=== PATIENT | female | born 1950 | race Caucasian/White ===

== ENCOUNTER 2020-06-11 17:07 | Outpatient (REF) | payer MEDICARE, SELFPAY | END 2020-06-11 17:08 | disposition home or self-care (01) | LOC: HO.LAB 17:07 | PROVIDERS: PCP Internal Medicine; Visit Provider Internal Medicine | DX: Z20.828 Contact with and (suspected) exposure to other viral communicable diseases (principal) | CPT/HCPCS: 87635 ==

== ENCOUNTER → 2020-07-21 10:38 | Outpatient (BNVA) | payer MEDICARE, SELFPAY | PROVIDERS: Visit Provider Orthopaedic Surgery | DX: M17.11 Unilateral primary osteoarthritis, right knee (principal) | CPT/HCPCS: 20610; 99212; J1040 ==

== ENCOUNTER 2020-08-07 11:47 | Outpatient (REF) | payer MEDICARE, SELFPAY ==
[2020-08-07 13:39] LABS: Cholesterol 213 mg/dL; HDL Cholesterol 40 mg/dL; LDL Cholesterol Calculated 151 mg/dl; Triglycerides 112 mg/dL
== END 2020-08-07 11:48 | disposition home or self-care (01) ==
LOC: HO.LAB 11:47
PROVIDERS: PCP Internal Medicine; Visit Provider Internal Medicine
DX: I10 Essential (primary) hypertension (principal)
CPT/HCPCS: 80061

== ENCOUNTER 2020-08-18 10:41 | Outpatient (REF) | payer MEDICARE, SELFPAY ==
[2020-08-18 11:57] LABS: MANUAL DIFF FLAG NO
[2020-08-18 12:01] LABS: Basophils Percent Auto 0.7 % (0-2); Eosinophils Absolute Auto 0.2 X10*3/uL (0.0-0.4); Eosinophils Percent Auto 3.9 % (0-4); Hemoglobin 13.9 g/dl (12.0-16.0); Imm Gran Abs Auto 0.03 X10*3/uL (0.00-0.03); Imm Gran Pct Auto 0.7 % (0.0-0.4); Lymphocytes Absolute Auto 1.4 X10*3/uL (1.2-4.9); Lymphocytes Percent Auto 31.1 % (20-40); Mean Corpuscular HGB Conc 33.9 g/dl (31.0-35.0); Mean Corpuscular Hemoglobin 33.5 pg (27.0-33.0); Mean Corpuscular Volume 98.8 fL (80-98); Monocytes Absolute Auto 0.3 X10*3/uL (0.1-1.2); Monocytes Percent Auto 7.4 % (2-11); Neutrophils Absolute Auto 2.6 X10*3/uL (2.0-8.3); Neutrophils Percent Auto 56.2 % (45-73); Platelet Count 173 X10*3/uL (160-400); Red Blood Count 4.15 X10*6/uL (4.20-5.50); White Blood Count 4.6 X10*3/uL (4.8-10.8)
[2020-08-18 12:15] LABS: Cholesterol 198 mg/dL; HDL Cholesterol 37 mg/dL; LDL Cholesterol Calculated 130 mg/dl; Triglycerides 157 mg/dL
[2020-08-18 12:20] LABS: Alanine Aminotransferase 39 U/L (0-31); Alkaline Phosphatase 77 U/L (39-117); Aspartate Amino Transferase 33 U/L (5-31); Bilirubin Direct 0.2 mg/dL (0.0-0.5); Bilirubin Total 0.5 mg/dL (0.0-1.0); Iron 90 mcg/dL (30-160); Percent Iron Saturation 23 % (15-50); Total Iron Binding Capacity 383 mcg/dL (228-428); Unsaturated Iron Binding 293 ug/dL
[2020-08-18 12:30] LABS: Ferritin 391 ng/mL (10-250)
== END 2020-08-18 10:42 | disposition home or self-care (01) ==
LOC: HO.LAB 10:41
PROVIDERS: PCP Internal Medicine; Visit Provider Internal Medicine
DX: K76.0 Fatty (change of) liver, not elsewhere classified (principal); E83.19 Other disorders of iron metabolism; R74.8 Abnormal levels of other serum enzymes
CPT/HCPCS: 36415; 80061; 80076; 82728; 83540; 85025

== ENCOUNTER 2020-09-28 09:48 | Outpatient (REF) | payer MEDICARE, SELFPAY | END 2020-09-28 09:49 | disposition home or self-care (01) | LOC: HO.LAB 09:48 | PROVIDERS: Visit Provider Internal Medicine | DX: Z20.822 Contact with and (suspected) exposure to COVID-19 (principal) | CPT/HCPCS: 36415; C9803; U0003; U0005 ==

== ENCOUNTER 2020-12-28 07:58 | Outpatient (REF) | payer MEDICARE, SELFPAY ==
--- NOTE | ~2020-12-28 | US_ITS ---
EXAMINATION: US ABDOMEN COMPLETE CLINICAL INFORMATION: Elevated LFTs. COMPARISON: Ultrasound abdomen 01/07/2020 and 01/02/2019. TECHNIQUE: Real-time imaging of the abdominal viscera. FINDINGS: PANCREAS: The body and the head of the pancreas is homogeneous in echotexture. The tail of the pancreas is obstructed by gas. ABDOMINAL AORTA: The proximal, mid, and distal segments are normal in caliber. INFERIOR VENA CAVA: Visualized portions are normal. LIVER: The liver has increased echogenicity. The liver is normal in size and lobulated contour. No focal hepatic lesion. There is no intrahepatic biliary duct dilatation seen. GALLBLADDER: There are 2 echogenic nonmobile lesions along the posterior gallbladder wall likely polyps measuring 1.0 cm and 0.5 cm. The gallbladder is physiologically distended without evidence of stones, sludge, wall thickening or pericholecystic fluid. COMMON BILE DUCT: Normal in caliber measuring 0.6 cm in diameter. RIGHT KIDNEY: There is normal cortical thickness with a small anechoic cyst upper pole measuring 5.1 x 3.2 x 4.4 cm. No hydronephrosis or renal calculi. The kidney measures 12.7 cm in maximum dimension. LEFT KIDNEY: Normal. No hydronephrosis. No renal calculi or focal parenchymal lesions. The kidney measures 12.0 cm in maximum dimension. SPLEEN: Normal. The spleen measures 11.4 cm in maximum dimension. FREE FLUID: None. US/US abdomen complete IMPRESSION: Lobulated liver contour with mild hepatic steatosis. No focal lesion seen. 2 gallbladder polyps. Anechoic cyst upper pole right kidney.
== END 2020-12-28 07:59 | disposition home or self-care (01) ==
LOC: HO.US 07:58
PROVIDERS: Visit Provider Internal Medicine
DX: E83.19 Other disorders of iron metabolism (principal); R79.89 Other specified abnormal findings of blood chemistry
CPT/HCPCS: 76700

== ENCOUNTER 2021-01-04 11:33 | Outpatient (REF) | payer MEDICARE, SELFPAY ==
[2021-01-04 12:33] LABS: MANUAL DIFF FLAG NO
[2021-01-04 12:41] LABS: Basophils Percent Auto 0.7 % (0-2); Eosinophils Absolute Auto 0.1 X10*3/uL (0.0-0.4); Eosinophils Percent Auto 2.8 % (0-4); Hematocrit 39.4 % (37-47); Hemoglobin 13.4 g/dl (12.0-16.0); Imm Gran Abs Auto 0.01 X10*3/uL (0.00-0.03); Imm Gran Pct Auto 0.2 % (0.0-0.4); Lymphocytes Absolute Auto 1.6 X10*3/uL (1.2-4.9); Lymphocytes Percent Auto 34.5 % (20-40); Mean Corpuscular Hemoglobin 33.1 pg (27.0-33.0); Mean Corpuscular Volume 97.3 fL (80-98); Mean Platelet Volume 10.9 fL (9.4-12.3); Monocytes Absolute Auto 0.3 X10*3/uL (0.1-1.2); Monocytes Percent Auto 5.9 % (2-11); Neutrophils Absolute Auto 2.6 X10*3/uL (2.0-8.3); Neutrophils Percent Auto 55.9 % (45-73); Platelet Count 154 X10*3/uL (160-400); Red Blood Count 4.05 X10*6/uL (4.20-5.50); Red Cell Distribution Width 12.7 % (11.0-16.0); White Blood Count 4.6 X10*3/uL (4.8-10.8)
[2021-01-04 13:25] LABS: Alanine Aminotransferase 43 U/L (0-31); Albumin Level 3.8 g/dL (3.5-5.0); Alkaline Phosphatase 87 U/L (39-117); Aspartate Amino Transferase 40 U/L (5-31); Bilirubin Direct 0.2 mg/dL (0.0-0.5); Bilirubin Total 0.8 mg/dL (0.0-1.0); Iron 112 mcg/dL (30-160); Percent Iron Saturation 29 % (15-50); Total Iron Binding Capacity 391 mcg/dL (228-428); Total Protein 6.9 g/dL (6.5-8.0); Unsaturated Iron Binding 279 ug/dL
[2021-01-04 13:35] LABS: Ferritin 282 ng/mL (10-250)
[2021-01-05 11:17] LABS: Alpha Fetoprotein 7.3 ng/mL
== END 2021-01-04 11:34 | disposition home or self-care (01) ==
LOC: HO.LAB 11:33
PROVIDERS: PCP Internal Medicine; Visit Provider Internal Medicine
DX: E83.19 Other disorders of iron metabolism (principal); R79.89 Other specified abnormal findings of blood chemistry
CPT/HCPCS: 36415; 80076; 82105; 82728; 83540; 85025

== ENCOUNTER 2021-01-05 09:57 | Outpatient (REF) | payer MEDICARE, SELFPAY ==
[2021-01-05 11:00] LABS: Cholesterol 201 mg/dL; HDL Cholesterol 32 mg/dL; LDL Cholesterol Calculated 138 mg/dl; Triglycerides 158 mg/dL
== END 2021-01-05 09:58 | disposition home or self-care (01) ==
LOC: HO.LAB 09:57
PROVIDERS: PCP Internal Medicine; Visit Provider Internal Medicine
DX: E11.9 Type 2 diabetes mellitus without complications (principal)
CPT/HCPCS: 36415; 80061

== ENCOUNTER 2021-07-26 11:09 | Outpatient (REF) | payer MEDICARE, SELFPAY ==
[2021-07-26 11:22] LABS: MANUAL DIFF FLAG NO
[2021-07-26 12:19] LABS: Basophils Percent Auto 0.5 % (0-2); Eosinophils Absolute Auto 0.2 X10*3/uL (0.0-0.4); Eosinophils Percent Auto 2.5 % (0-4); Hemoglobin 15.4 g/dl (12.0-16.0); Imm Gran Abs Auto 0.02 X10*3/uL (0.00-0.03); Imm Gran Pct Auto 0.3 % (0.0-0.4); Lymphocytes Percent Auto 32.6 % (20-40); Mean Corpuscular HGB Conc 33.5 g/dl (31.0-35.0); Mean Corpuscular Volume 98.7 fL (80.0-98.0); Mean Platelet Volume 10.9 fL (9.4-12.3); Monocytes Absolute Auto 0.5 X10*3/uL (0.1-1.2); Monocytes Percent Auto 8.9 % (2-11); Neutrophils Absolute Auto 3.4 x10*3/uL (2.0-8.3); Neutrophils Percent Auto 55.2 % (45-73); Platelet Count 184 X10*3/uL (160-400); Red Blood Count 4.66 X10*6/uL (4.20-5.50); White Blood Count 6.1 X10*3/uL (4.8-10.8)
[2021-07-26 12:45] LABS: Alanine Aminotransferase 46 U/L (0-31); Albumin Level 4.2 g/dL (3.5-5.0); Alkaline Phosphatase 83 U/L (39-117); Anion Gap 15 (12-20); Aspartate Amino Transferase 44 U/L (5-31); Bilirubin Total 0.8 mg/dL (0.0-1.0); Blood Urea Nitrogen 15 mg/dL (9-16); Calcium 10.4 mg/dL (8.4-10.2); Carbon Dioxide 24 mmol/L (22-29); Chloride 106 mmol/L (96-108); Cholesterol 223 mg/dL; Estimated Glomerular Filt Rate 51; Glucose Fasting 112 mg/dL (60-99); HDL Cholesterol 34 mg/dL; LDL Cholesterol Calculated 151 mg/dl; Potassium 4.6 mmol/L (3.3-5.1); Sodium 140 mmol/L (135-145); Total Protein 7.6 g/dL (6.5-8.0); Triglycerides 191 mg/dL
[2021-07-26 12:57] LABS: Thyroid Stimulating Hormone 1.53 uIU/mL (0.32-4.0)
== END 2021-07-26 11:10 | disposition home or self-care (01) ==
LOC: HO.LAB 11:09
PROVIDERS: Absent Provider Nurse Practitioner Family; PCP Internal Medicine; Visit Provider Internal Medicine
DX: Z00.00 Encounter for general adult medical examination without abnormal findings (principal); Z13.1 Encounter for screening for diabetes mellitus; E11.9 Type 2 diabetes mellitus without complications; E03.9 Hypothyroidism, unspecified
CPT/HCPCS: 36415; 80053; 80061; 84443; 85025

== ENCOUNTER 2021-08-17 09:53 | Outpatient (REF) | payer MEDICARE, SELFPAY ==
--- NOTE | ~2021-08-17 | US_ITS ---
EXAMINATION: US ABDOMEN COMPLETE CLINICAL INFORMATION: Abdominal pain. COMPARISON: None TECHNIQUE: Real-time imaging of the abdominal viscera. FINDINGS: PANCREAS: Normal. ABDOMINAL AORTA: The proximal, mid, and distal segments are normal in caliber. INFERIOR VENA CAVA: Visualized portions are normal. LIVER: The liver is normal in size. The liver contour is normal. There is diffuse increased liver parenchymal echogenicity, consistent with hepatic steatosis. No focal hepatic lesion. There is no intrahepatic biliary duct dilatation seen. GALLBLADDER: Normal. The gallbladder is physiologically distended without evidence of stones, sludge, polyps, wall thickening or pericholecystic fluid. COMMON BILE DUCT: Normal in caliber measuring 0.3 cm in diameter. RIGHT KIDNEY: There is a 4.5 cm upper pole simple cyst. No hydronephrosis. No renal calculi or focal parenchymal lesions. The kidney measures 12.4 cm in maximum dimension. LEFT KIDNEY: Normal. No hydronephrosis. No renal calculi or focal parenchymal lesions. The kidney measures 12.2 cm in maximum dimension. SPLEEN: Normal. The spleen measures 9.1 cm in maximum dimension. FREE FLUID: None. US/US abdomen complete IMPRESSION: There is hepatic steatosis. Right upper pole simple renal cyst. No further follow-up is required.
== END 2021-08-17 09:54 | disposition home or self-care (01) ==
LOC: HO.HMGCX 09:53
PROVIDERS: Visit Provider Internal Medicine
DX: R10.9 Unspecified abdominal pain (principal)
CPT/HCPCS: 76700

== ENCOUNTER 2021-10-08 09:34 | Outpatient (REF) | payer MEDICARE, SELFPAY ==
--- NOTE | ~2021-10-08 | XR_ITS ---
EXAMINATION: XR knee standing BI, XR knee LT 2V CLINICAL INFORMATION: Reason for Exam M25.569 - Pain in unspecified knee COMPARISON: 01/13/2018. TECHNIQUE: Weightbearing AP views of both knees and lateral and sunrise views of the left knee FINDINGS: Mild subchondral bone plate impaction fracture of the medial aspect of the medial femoral condyle on the right. Healed fracture of the proximal RIGHT fibular diaphysis, unchanged. Moderate RIGHT medial tibiofemoral compartment joint space narrowing. Small tricompartmental marginal osteophytes present bilaterally. Lateral view of the left knee demonstrate a small knee joint effusion. Vascular calcifications. Soft tissues otherwise unremarkable. XR/XR knee standing BI IMPRESSION: * Bilateral degenerative changes as described, worst within the medial tibiofemoral compartment on the right where there is also associated small impaction (insufficiency) fracture of the subchondral bone plate. * Small left knee joint effusion.
--- NOTE | ~2021-10-08 | XR_ITS ---
EXAMINATION: XR knee standing BI, XR knee LT 2V CLINICAL INFORMATION: Reason for Exam M25.569 - Pain in unspecified knee COMPARISON: 01/13/2018. TECHNIQUE: Weightbearing AP views of both knees and lateral and sunrise views of the left knee FINDINGS: Mild subchondral bone plate impaction fracture of the medial aspect of the medial femoral condyle on the right. Healed fracture of the proximal RIGHT fibular diaphysis, unchanged. Moderate RIGHT medial tibiofemoral compartment joint space narrowing. Small tricompartmental marginal osteophytes present bilaterally. Lateral view of the left knee demonstrate a small knee joint effusion. Vascular calcifications. Soft tissues otherwise unremarkable. XR/XR knee LT 2V IMPRESSION: * Bilateral degenerative changes as described, worst within the medial tibiofemoral compartment on the right where there is also associated small impaction (insufficiency) fracture of the subchondral bone plate. * Small left knee joint effusion.
== END 2021-10-08 09:35 | disposition home or self-care (01) ==
LOC: HO.HOSX 09:34
PROVIDERS: PCP Internal Medicine; Visit Provider Orthopaedic Surgery
DX: M17.12 Unilateral primary osteoarthritis, left knee (principal)
CPT/HCPCS: 20610; 73560; 73565; 99212; J1100

== ENCOUNTER 2021-10-28 10:30 | Outpatient (REF) | payer MEDICARE, SELFPAY ==
--- NOTE | ~2021-10-28 | MR_ITS ---
EXAMINATION: MR KNEE WITHOUT CONTRAST, LEFT CLINICAL INFORMATION: Left knee pain. Arthritis. Internal derangement. COMPARISON: Radiographs dated 10/08/2021. TECHNIQUE: MRI of the knee without contrast was performed using routine sequences on a high-field scanner. FINDINGS: MENISCI: Medial Meniscus: There is a horizontal tear of the posterior horn and body extending to the undersurface near the free-edge margin. Lateral Meniscus: There is a complex tear of the anterior horn and body with a dominant longitudinal/vertical anterior horn component extending to both the superior meniscal surface and meniscal undersurface with loss of meniscal tissue and free-edge fraying. A horizontal component of the tear is present at the meniscal body which is partially extruded laterally. LIGAMENTS: Cruciate: Intact Collateral: Intact EXTENSOR MECHANISM: Large patellar enthesopathic spurs are present at the quadriceps tendon insertion and patellar tendon origin, as well as the patellar tendon insertion on the tibial tuberosity.. No tendinosis. Quadriceps and patellar tendons are intact. ARTICULAR CARTILAGE/BONE: Patellofemoral Compartment: High-grade nonuniform articular cartilage loss is present at the lateral patellar facet and median ridge with underlying cortical irregularity and subchondral edema as well as moderate-size marginal osteophytes. There is similar high-grade nonuniform cartilage loss at the lateral trochlear facet with articular cortical remodeling. More [id number] nonuniform articular cartilage loss is present at the medial facets. Medial Compartment: Mild to moderate nonuniform chondral thinning at the medial femoral condyle with a small central osteophyte. More mild chondral thinning at the medial tibial plateau. Small marginal osteophytes. Lateral Compartment: Moderate-size marginal osteophytes. There is moderate nonuniform chondral thinning at the lateral femoral condyle weightbearing surface anteriorly and at the lateral tibial plateau with small full-thickness chondral fissures. JOINT FLUID AND BURSAE: Small joint effusion and Smith's cyst. There is moderate semimembranosus-tibial collateral ligament bursitis. MR/MR knee LT wo con IMPRESSION: 1. Complex lateral meniscal tear with a dominant longitudinal component at the macerated anterior horn and partial extrusion of the meniscal body. 2. Horizontal tear of the posterior horn and body of the medial meniscus. 3. 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 4. Mild to moderate lateral and mild medial compartment osteoarthritis. 5. Small joint effusion and Smith's cyst. 6. Moderate semimembranosus-tibial collateral ligament bursitis.
== END 2021-10-28 10:31 | disposition home or self-care (01) ==
LOC: HO.MRI 10:30
PROVIDERS: PCP Internal Medicine; Visit Provider Orthopaedic Surgery
DX: M23.92 Unspecified internal derangement of left knee (principal)
CPT/HCPCS: 73721

== ENCOUNTER → 2021-11-01 14:47 | Outpatient (BNVA) | payer MEDICARE, SELFPAY | PROVIDERS: PCP Internal Medicine; Visit Provider Orthopaedic Surgery | DX: M17.12 Unilateral primary osteoarthritis, left knee (principal); M23.301 Other meniscus derangements, unspecified lateral meniscus, left knee; M23.204 Derangement of unspecified medial meniscus due to old tear or injury, left knee | CPT/HCPCS: 99212 ==

== ENCOUNTER → 2021-12-14 11:54 | Outpatient (REF) | payer MEDICARE, SELFPAY ==
--- NOTE | 2021-12-14 12:01 | ECG_ITS ---
Test Reason : Z13.9 Blood Pressure : / mmHG Vent. Rate : 055 BPM Atrial Rate : 055 BPM P-R Int : 160 ms QRS Dur : 076 ms QT Int : 446 ms P-R-T Axes : 066 -20 047 degrees QTc Int : 426 ms Sinus bradycardia with marked sinus arrhythmia Otherwise normal ECG When compared with ECG of 16-MAY-2019 16:04, No significant change was found Referred By: Ciaran Carlos Electronically Signed By:FREDDIE DESIR MD
== END ==
LOC: HO.CARD 11:54
PROVIDERS: PCP Internal Medicine; Visit Provider Internal Medicine
DX: Z13.9 Encounter for screening, unspecified (principal); R00.1 Bradycardia, unspecified
CPT/HCPCS: 93005

== ENCOUNTER 2021-12-28 07:59 | Outpatient (REF) | payer MEDICARE, SELFPAY ==
--- NOTE | ~2021-12-28 | US_ITS ---
EXAMINATION: US COMPLETE ABDOMEN WITH LIVER ELASTOGRAPHY CLINICAL INFORMATION: Liver fibrosis. Elevated liver function tests. COMPARISON: Previous abdominal ultrasound most recent July 2021 and previous less than the exam November 2016 TECHNIQUE: Real-time imaging of the abdominal viscera. Noninvasive ultrasound liver fibrosis assessment is performed using Yasmany ElastPQ point quantification shear wave elastography (2D-SWE) with a C5-2 MHz transducer. Multiple elastography samples are obtained. FINDINGS: PANCREAS: The head and body the pancreas are normal. The tail is well visualized. ABDOMINAL AORTA: The proximal, middle, and distal aortic segments are normal in caliber. INFERIOR VENA CAVA: Visualized portions are normal. LIVER: Liver echotexture appears slightly increased and heterogeneous. The contour of the liver may be slightly irregular scalloped questionable for mild cirrhotic change. No focal lesion or biliary duct dilatation. The right lobe measures 19 cm in length. The left lobe measures 16 cm in length. Portal flow is normal/ Shear wave liver elastography median stiffness is 1 m/s (reference: normal median stiffness is 1.3 m/s or less). IQR/median stiffness to assess sampling precision is 0.3 (reference: good quality data set is IQR/median stiffness of 0.15 or less). GALLBLADDER: The gallbladder is normal in size. There are gallstones in the gallbladder. The gallbladder wall is normal. COMMON BILE DUCT: Normal in caliber measuring 0.6 cm in diameter. RIGHT KIDNEY: There is a 4 x 5 cm simple cyst in the upper pole. No hydronephrosis. No renal calculi or focal parenchymal lesions. The kidney measures 12 cm in maximum dimension. LEFT KIDNEY: Normal. No hydronephrosis. No renal calculi or focal parenchymal lesions. The kidney measures 12 cm in maximum dimension. SPLEEN: Normal. The spleen measures 10 cm in maximum dimension. FREE FLUID: None. US/US abdomen comp w elastography IMPRESSION: 1. Impression: Enlarged echogenic liver suggestive of hepatocellular disease. The contour of the liver is slightly irregular questionable for mild cirrhotic change. Gallstones. Right renal cyst. Limited visualization of the tail the pancreas. 2. Liver elastography: Nondiagnostic due to sampling error. REFERENCE: Society of Radiologists in Ultrasound Liver Stiffness Thresholds (2020): LIVER STIFFNESS THRESHOLDS: *Liver Stiffness equal or less than 1.3 m/s: High probability of being normal. *Liver Stiffness less than 1.7 m/s: In the absence of other known clinical signs, rules out compensated advanced chronic liver disease. *Liver Stiffness 1.7-2.1 m/s: Suggestive of compensated advanced chronic liver disease but need further test for confirmation. *Liver Stiffness over 2.1 m/s: Rules in compensated advanced chronic liver disease. *Liver Stiffness over 2.4 m/s: Suggestive of clinically significant portal hypertension. QUALITY OF DATA SET: *IQR/Median value equal or less than 0.15 implies a quality data set. *IQR/Median value over 0.15 implies a poor quality data set. SIGNIFICANT CHANGE FROM PRIOR EXAM: Significant change if liver stiffness measurement is 10% or greater from prior exam. OTHER CONSIDERATIONS: The stage of liver fibrosis may be overestimated in the setting of acute hepatitis, liver inflammation, elevated liver function tests, hepatic vascular congestion, obstructive cholestasis, non-fasting state, and infiltrative diseases such as amyloidosis and lymphoma. In some patients with NAFLD, the liver stiffness thresholds for compensated advanced chronic liver disease may be lower. In causes other than viral hepatitis and NAFLD, liver stiffness thresholds are not well established.
== END 2021-12-28 08:00 | disposition home or self-care (01) ==
LOC: HO.US 07:59
PROVIDERS: Visit Provider Internal Medicine
DX: Z13.89 Encounter for screening for other disorder (principal)
CPT/HCPCS: 76705; 76981

== ENCOUNTER 2021-12-28 09:03 | Outpatient (REF) | payer MEDICARE, SELFPAY ==
[2021-12-28 10:15] LABS: Alanine Aminotransferase 36 U/L (0-31); Albumin Level 4.1 g/dL (3.5-5.0); Alkaline Phosphatase 73 U/L (39-117); Anion Gap 11 (12-20); Aspartate Amino Transferase 34 U/L (5-31); Bilirubin Total 0.9 mg/dL (0.0-1.0); Blood Urea Nitrogen 10 mg/dL (9-16); Calcium 10.2 mg/dL (8.4-10.2); Carbon Dioxide 26 mmol/L (22-29); Chloride 106 mmol/L (96-108); Cholesterol 224 mg/dL; Estimated Glomerular Filt Rate 49; Glucose Fasting 112 mg/dL (60-99); HDL Cholesterol 39 mg/dL; LDL Cholesterol Calculated 157 mg/dl; Potassium 4.9 mmol/L (3.3-5.1); Sodium 138 mmol/L (135-145); Total Protein 7.3 g/dL (6.5-8.0); Triglycerides 144 mg/dL
== END 2021-12-28 09:04 | disposition home or self-care (01) ==
LOC: HO.LAB 09:03
PROVIDERS: PCP Internal Medicine; Visit Provider Internal Medicine
DX: Z00.00 Encounter for general adult medical examination without abnormal findings (principal); K74.00 Hepatic fibrosis, unspecified; E83.19 Other disorders of iron metabolism; R79.89 Other specified abnormal findings of blood chemistry; E11.9 Type 2 diabetes mellitus without complications
CPT/HCPCS: 36415; 76705; 76981; 80053; 80061

== ENCOUNTER 2022-01-20 10:36 | Outpatient (REF) | payer MEDICARE, SELFPAY ==
[2022-01-20 10:50] LABS: MANUAL DIFF FLAG NO
[2022-01-20 11:02] LABS: Basophils Absolute Auto 0.1 X10*3/uL (0.0-0.2); Eosinophils Absolute Auto 0.2 X10*3/uL (0.0-0.4); Eosinophils Percent Auto 3.5 % (0-4); Hematocrit 40.8 % (37.0-47.0); Hemoglobin 13.5 g/dl (12.0-16.0); Imm Gran Abs Auto 0.01 X10*3/uL (0.00-0.03); Imm Gran Pct Auto 0.2 % (0.0-0.4); Lymphocytes Absolute Auto 1.4 X10*3/uL (1.2-4.9); Lymphocytes Percent Auto 27.9 % (20-40); Mean Corpuscular HGB Conc 33.1 g/dl (31.0-35.0); Mean Corpuscular Hemoglobin 32.2 pg (27.0-33.0); Mean Corpuscular Volume 97.4 fL (80.0-98.0); Mean Platelet Volume 10.3 fL (9.4-12.3); Monocytes Absolute Auto 0.4 X10*3/uL (0.1-1.2); Monocytes Percent Auto 8.2 % (2-11); Neutrophils Percent Auto 59.2 % (45-73); Platelet Count 147 X10*3/uL (160-400); Red Blood Count 4.19 X10*6/uL (4.20-5.50); Red Cell Distribution Width 12.3 % (11.0-16.0); White Blood Count 5.1 X10*3/uL (4.8-10.8)
[2022-01-20 11:13] LABS: INTERNATIONAL NORM RATIO 1.2 (0.9-1.1); Prothrombin Time 13.7 SEC (9.9-13.0)
[2022-01-20 11:28] LABS: Alanine Aminotransferase 43 U/L (0-31); Albumin Level 3.7 g/dL (3.5-5.0); Alkaline Phosphatase 73 U/L (39-117); Aspartate Amino Transferase 42 U/L (5-31); Bilirubin Direct 0.3 mg/dL (0.0-0.5); Bilirubin Total 0.7 mg/dL (0.0-1.0); Iron 146 mcg/dL (30-160); Percent Iron Saturation 35 % (15-50); Total Iron Binding Capacity 420 mcg/dL (228-428); Unsaturated Iron Binding 274 ug/dL
[2022-01-20 11:48] LABS: Ferritin 103 ng/mL (10-250)
[2022-01-21 11:21] LABS: Alpha Fetoprotein 6.7 ng/mL
[2022-01-31 02:27] LABS: FIB-ALT 37 U/L (6-29); FIB-Alpha-2-Macroglobulin 399 mg/dL (106-279); FIB-Apolipoprotein A1 130 mg/dL (101-198); FIB-GGT 50 U/L (3-65); FIB-Haptoglobin 47 mg/dL (43-212); FIB-Total Bilirubin 0.6 mg/dL (0.2-1.2); Liver Fibrosis Score 0.82; Liver Fibrosis Stage F4; Nec Inflam Act Grade A1; Nec Inflam Act Score 0.35
== END 2022-01-20 10:37 | disposition home or self-care (01) ==
LOC: HO.LAB 10:36
PROVIDERS: PCP Internal Medicine; Visit Provider Internal Medicine
DX: K74.00 Hepatic fibrosis, unspecified (principal); E83.19 Other disorders of iron metabolism; R79.89 Other specified abnormal findings of blood chemistry
CPT/HCPCS: 36415; 80076; 81596; 82105; 82728; 83540; 85025; 85610

== ENCOUNTER 2022-05-06 10:11 | Outpatient (REF) | payer MEDICARE, SELFPAY ==
[2022-05-06 11:42] LABS: Cholesterol 202 mg/dL; HDL Cholesterol 33 mg/dL; LDL Cholesterol Calculated 133 mg/dl; Triglycerides 180 mg/dL
== END 2022-05-06 10:12 | disposition home or self-care (01) ==
LOC: HO.LDS 10:11
PROVIDERS: PCP Internal Medicine; Visit Provider Internal Medicine
DX: E78.5 Hyperlipidemia, unspecified (principal)
CPT/HCPCS: 36415; 80061

== ENCOUNTER 2022-05-12 11:22 | Outpatient (REF) | payer MEDICARE, SELFPAY ==
--- NOTE | ~2022-05-12 | US_ITS ---
EXAMINATION: US VENOUS ULTRASOUND WITH DOPPLER LOWER EXTREMITY, LEFT CLINICAL INFORMATION: Localized edema. COMPARISON: None TECHNIQUE: Ultrasound of the deep veins is performed from the hip to the calf with compression sonography and color and pulse Doppler assessment. Spectral analysis with color-flow imaging is performed. FINDINGS: There is normal venous compression and respiratory variation and augmented flow. The visualized common femoral vein, superficial femoral vein, profunda femoral vein, popliteal vein, and the trifurcation region shows no evidence of deep venous thrombosis. There is no significant popliteal fossa cyst. Incidental finding of a small lymph node in the left groin. If the patient's symptoms persist, followup ultrasound in 5 days 7 days might be of value to exclude proximal propagation from a non-visualized calf vein. US/US venous duplex LE IMPRESSION: No DVT demonstrated in the left lower extremity.
--- NOTE | 2022-05-12 12:02 | ECG_ITS ---
Test Reason : Z13.9 Blood Pressure : / mmHG Vent. Rate : 051 BPM Atrial Rate : 051 BPM P-R Int : 144 ms QRS Dur : 078 ms QT Int : 460 ms P-R-T Axes : 060 -10 046 degrees QTc Int : 423 ms Sinus bradycardia with Sinus Arrhythmia Otherwise normal ECG When compared with ECG of 14-DEC-2021 12:04, No significant change was found Referred By: Ciaran Carlos Electronically Signed By:YANA MOSLEY
== END 2022-05-12 11:23 | disposition home or self-care (01) ==
LOC: HO.US 11:22
PROVIDERS: PCP Internal Medicine; Visit Provider Internal Medicine
DX: R60.0 Localized edema (principal); R00.1 Bradycardia, unspecified
CPT/HCPCS: 93005; 93971

== ENCOUNTER → 2022-06-10 12:52 | Outpatient (REF) | payer MEDICARE, SELFPAY ==
--- NOTE | 2022-06-10 12:58 | CA_ITS ---
Transthoracic Echocardiogram Patient (Last, First, Middle): Sada Mera Ellen Gender: Female Date of : 1950 Age: 71 Procedure Date: 06/10/2022 Procedure Type: Transthoracic Echocardiogram Location: OP Height: 167.64 cm Weight: 80.74 kg BSA: 1.90 m2 Heart Rate: 58 bpm BP: 164 / 73 mmHg Briar Cutter: SB Referring MD: Ciaran Carlos MD Symptoms: R06.09 - Other forms of dyspnea Study Quality: Adequate ECG Rhythm: Sinus Conclusions: - The left ventricular systolic function is normal. The calculated ejection fraction is 63% by biplane method. - There is mild calcification of the aortic valve. - There is mild mitral annular calcification. Findings Left Ventricle Normal left ventricular cavity size. There is normal left ventricular wall thickness. The left ventricular systolic function is normal. The calculated ejection fraction is 63% by biplane method. There is no evidence of regional wall motion abnormalities. Diastolic function is normal for age. Right Ventricle Normal right ventricular cavity size and systolic function. Atria Both atria are normal in size. Aortic Valve There is mild calcification of the aortic valve. There is no aortic valve stenosis. There is no aortic valve regurgitation. Mitral Valve The mitral valve appears normal. There is mild mitral annular calcification. There is no mitral valve regurgitation. There is no mitral valve stenosis. Pulmonic Valve The pulmonic valve is likely normal. Tricuspid Valve Normal tricuspid valve structure. There is trace tricuspid valve regurgitation. There is no evidence of pulmonary hypertension. Great Vessels The asc aorta is normal in size. Venous The inferior vena cava is normal in size and collapses greater than 50% with inspiration. Pericardium/Pleural There is no evidence of pericardial effusion. Prior Study Comparison No significant change compared to prior study dated: 09/16/2001. Measurements 2D Linear Measurements IVSd: 0.93 0.6-0.9/0.6-1.0 cm LVIDd: 4.84 3.9-5.3/4.2-5.9 cm LVIDd Index: 2.55 2.4-3.2/2.2-3.1 cm/m2 LVIDs: 2.97 2.0-3.6 cm LVPWd: 0.74 0.7-1.1 cm LA Diam: 3.30 2.7-3.8/3.0-4.0 cm LAIDs Index: 1.74 1.5-2.3 cm/m2 LV Mass: 169.28 67-162/88-224 g LV Mass Index: 89.09 43-95/49-115 g/m2 LVOT Diam: 2.10 3.0+(-)1.3 cm 2D Systolic Function EF 4C: 54.70 >55% EF 2C: 68.80 >55% EF BiP: 63.20 >55% Mitral Valve MV Pk E: 0.70 MV PK A: 1.00 MV Decel Time: 207.00 E/A: 0.70 E'Lateral: 5.44 E'Medial: 3.97 E/E' Med: 17.60 E/E' Lat: 12.80 PHT: 61.00 MVA PHT: 3.61 Decel [place]: 3.37 Aortic Valve AoV Pk Tye: 1.71 AoV Mn Tye: 1.10 AoV VTI: 0.29 AoV Pk Grad: 12.00 Aov Mn Grad: 6.00 COLBY Cont.VTI: 2.91 LVOT LVOT Pk Tye: 1.32 LVOT Mn Tye: 0.98 LVOT VTI: 0.25 LVOT Pk Grad: 7.00 LVOT Mn Grad: 4.00 LVOT Diam: 2.10 LVOT Area: 3.46 Diastolic Function MV Pk E: 0.70 MV Pk A: 1.00 E/A: 0.70 E'Medial: 3.97 E/E' Med: 17.60 E' Laterial: 5.44 E/E' Lat: 12.80 Right Ventricle TAPSE (mm): 22.30 TVS' Tye: 14.00 Tricuspid Valve TR Pk Tye: 2.20 TR Pk Grad: 19.00 RA Press: 3.00 RVSP: 22.00 Great Vessels Aorta Sinus of Valsalva: 3.00 2.0-3.5 cm Ao Asc: 3.50 2.1-3.4 cm Pulmonary Veins Pulm Vein S/D 1.80 Pulmonary Valve PV Pk Tye: 1.00 Peak PV Grad: 4.00 Updated in Other Vendor System with Status of Final Param Chen MD electronically signed on 06/12/2022 12:16:30 PM with status of Final
== END ==
LOC: HO.CARD 12:52
PROVIDERS: Visit Provider Internal Medicine
DX: R06.00 Dyspnea, unspecified (principal)
CPT/HCPCS: 93306

== ENCOUNTER → 2022-06-13 11:30 | Outpatient (BNVA) | payer MEDICARE, SELFPAY | PROVIDERS: PCP Internal Medicine; Visit Provider Orthopaedic Surgery | DX: M17.0 Bilateral primary osteoarthritis of knee (principal); M25.562 Pain in left knee; M25.561 Pain in right knee | CPT/HCPCS: 20610; 99212; J1100 ==

== ENCOUNTER → 2022-08-08 09:40 | Outpatient (BNVA) | payer MEDICARE, SELFPAY | PROVIDERS: PCP Internal Medicine; Referring Provider Internal Medicine; Visit Provider Internal Medicine Cardiovascular Disease | DX: Z01.810 Encounter for preprocedural cardiovascular examination (principal); I10 Essential (primary) hypertension; E78.5 Hyperlipidemia, unspecified; Z79.899 Other long term (current) drug therapy | CPT/HCPCS: 99202 ==

== ENCOUNTER 2022-08-23 08:23 | Outpatient (REF) | payer MEDICARE, SELFPAY ==
[2022-08-23 09:08] LABS: Alanine Aminotransferase 45 U/L (0-31); Albumin Level 3.9 g/dL (3.5-5.0); Alkaline Phosphatase 83 U/L (39-117); Anion Gap 10 (12-20); Aspartate Amino Transferase 51 U/L (5-31); Bilirubin Direct 0.3 mg/dL (0.0-0.5); Bilirubin Total 0.8 mg/dL (0.0-1.0); Blood Urea Nitrogen 13 mg/dL (9-16); Carbon Dioxide 27 mmol/L (22-29); Chloride 108 mmol/L (96-108); Estimated Glomerular Filt Rate 59; Glucose Random 117 mg/dL (60-115); Potassium 4.4 mmol/L (3.3-5.1); Sodium 141 mmol/L (135-145); Total Protein 6.9 g/dL (6.5-8.0)
[2022-08-24 11:35] LABS: Cholesterol 133 mg/dL; HDL Cholesterol 37 mg/dL; LDL Cholesterol Calculated 73 mg/dl; Triglycerides 119 mg/dL
== END 2022-08-23 08:24 | disposition home or self-care (01) ==
LOC: HO.LAB 08:23
PROVIDERS: Absent Provider Internal Medicine Cardiovascular Disease; PCP Internal Medicine; Referring Provider Nurse Practitioner Family; Visit Provider Internal Medicine
DX: E78.5 Hyperlipidemia, unspecified (principal)
CPT/HCPCS: 36415; 80048; 80061; 80076

== ENCOUNTER → 2022-08-25 15:09 | Outpatient (BNVA) | payer MEDICARE, SELFPAY | PROVIDERS: PCP Internal Medicine; Referring Provider Internal Medicine; Visit Provider Internal Medicine Cardiovascular Disease | DX: Z13.89 Encounter for screening for other disorder (principal) ==

== ENCOUNTER → 2022-10-04 13:37 | Outpatient (BNVA) | payer MEDICARE, SELFPAY | PROVIDERS: PCP Internal Medicine; Referring Provider Internal Medicine; Visit Provider Internal Medicine Cardiovascular Disease | DX: I10 Essential (primary) hypertension (principal); E78.5 Hyperlipidemia, unspecified; Z79.899 Other long term (current) drug therapy | CPT/HCPCS: 99212 ==

== ENCOUNTER 2022-11-24 09:31 | Outpatient (REF) | payer MEDICARE, SELFPAY ==
--- NOTE | ~2022-11-24 | US_ITS ---
EXAMINATION: US COMPLETE ABDOMEN WITH LIVER ELASTOGRAPHY CLINICAL INFORMATION: Fatty liver. Elevated liver function tests. COMPARISON: None available. TECHNIQUE: Real-time imaging of the abdominal viscera. Noninvasive ultrasound liver fibrosis assessment is performed using Yasmany ElastPQ point quantification shear wave elastography (2D-SWE) with a C5-2 MHz transducer. Multiple elastography samples are obtained. FINDINGS: PANCREAS: Normal. ABDOMINAL AORTA: The proximal, middle, and distal aortic segments are normal in caliber. INFERIOR VENA CAVA: Visualized portions are normal. LIVER: Liver echotexture is increased and heterogeneous. The contour of the liver is slightly irregular questionable for mild cirrhotic change. No focal liver lesion or biliary duct dilatation. The liver is slightly enlarged. The right lobe measures 20 cm in length. The left lobe measures 15 cm in length. Portal flow is normal/hepatopedal Shear wave liver elastography median stiffness is 1.5 m/s (reference: normal median stiffness is 1.3 m/s or less). IQR/median stiffness to assess sampling precision is 0.11 (reference: good quality data set is IQR/median stiffness of 0.15 or less). GALLBLADDER: Small gallstones. COMMON BILE DUCT: Normal in caliber measuring 0.4 cm in diameter. RIGHT KIDNEY: 4.6 x 3.7 x 5.2 cm cyst in the upper pole. No imaging follow-up recommended. No hydronephrosis. No renal calculi. The kidney measures 12.8 cm in maximum dimension. LEFT KIDNEY: Normal. No hydronephrosis. No renal calculi or focal parenchymal lesions. The kidney measures 12.9 cm in maximum dimension. SPLEEN: Normal. The spleen measures 9.5 cm in maximum dimension. FREE FLUID: None. US/US abdomen comp w elastography IMPRESSION: 1. Impression: Enlarged echogenic liver suggestive of hepatocellular disease. Slightly scalloped contour questionable for mild cirrhotic changes. Gallstones. Right renal cyst. 2. Liver elastography: Adequate liver sampling. Liver stiffness not appreciably increased. REFERENCE: Society of Radiologists in Ultrasound Liver Stiffness Thresholds (2020): LIVER STIFFNESS THRESHOLDS: *Liver Stiffness equal or less than 1.3 m/s: High probability of being normal. *Liver Stiffness less than 1.7 m/s: In the absence of other known clinical signs, rules out compensated advanced chronic liver disease. *Liver Stiffness 1.7-2.1 m/s: Suggestive of compensated advanced chronic liver disease but need further test for confirmation. *Liver Stiffness over 2.1 m/s: Rules in compensated advanced chronic liver disease. *Liver Stiffness over 2.4 m/s: Suggestive of clinically significant portal hypertension. QUALITY OF DATA SET: *IQR/Median value equal or less than 0.15 implies a quality data set. *IQR/Median value over 0.15 implies a poor quality data set. SIGNIFICANT CHANGE FROM PRIOR EXAM: Significant change if liver stiffness measurement is 10% or greater from prior exam. OTHER CONSIDERATIONS: The stage of liver fibrosis may be overestimated in the setting of acute hepatitis, liver inflammation, elevated liver function tests, hepatic vascular congestion, obstructive cholestasis, non-fasting state, and infiltrative diseases such as amyloidosis and lymphoma. In some patients with NAFLD, the liver stiffness thresholds for compensated advanced chronic liver disease may be lower. In causes other than viral hepatitis and NAFLD, liver stiffness thresholds are not well established.
[2022-11-24 11:10] LABS: Alanine Aminotransferase 42 U/L (0-31); Albumin Level 3.8 g/dL (3.5-5.0); Alkaline Phosphatase 60 U/L (39-117); Anion Gap 11 (12-20); Aspartate Amino Transferase 33 U/L (5-31); Bilirubin Total 0.8 mg/dL (0.0-1.0); Blood Urea Nitrogen 17 mg/dL (9-16); Calcium 9.6 mg/dL (8.4-10.2); Carbon Dioxide 27 mmol/L (22-29); Chloride 107 mmol/L (96-108); Cholesterol 152 mg/dL; Estimated Glomerular Filt Rate 55; Glucose Fasting 88 mg/dL (60-99); HDL Cholesterol 57 mg/dL; LDL Cholesterol Calculated 82 mg/dl; Potassium 4.3 mmol/L (3.3-5.1); Sodium 141 mmol/L (135-145); Total Protein 6.5 g/dL (6.5-8.0); Triglycerides 65 mg/dL
== END 2022-11-24 09:32 | disposition home or self-care (01) ==
LOC: HO.US 09:31
PROVIDERS: Absent Provider Internal Medicine; PCP Internal Medicine; Visit Provider Internal Medicine
DX: N28.9 Disorder of kidney and ureter, unspecified (principal); E78.5 Hyperlipidemia, unspecified; K76.0 Fatty (change of) liver, not elsewhere classified; E83.19 Other disorders of iron metabolism; K74.00 Hepatic fibrosis, unspecified
CPT/HCPCS: 36415; 76705; 76981; 80053; 80061

== ENCOUNTER 2022-11-29 09:02 | Outpatient (REF) | payer MEDICARE, SELFPAY ==
[2022-11-29 09:18] LABS: MANUAL DIFF FLAG NO
[2022-11-29 09:28] LABS: Basophils Percent Auto 0.4 % (0-2); Eosinophils Absolute Auto 0.1 X10*3/uL (0.0-0.4); Eosinophils Percent Auto 1.4 % (0-4); Hematocrit 42.9 % (37.0-47.0); Hemoglobin 14.2 g/dl (12.0-16.0); Imm Gran Abs Auto 0.02 X10*3/uL (0.00-0.03); Imm Gran Pct Auto 0.3 % (0.0-0.4); Lymphocytes Absolute Auto 2.3 X10*3/uL (1.2-4.9); Lymphocytes Percent Auto 31.8 % (20-40); Mean Corpuscular HGB Conc 33.1 g/dl (31.0-35.0); Mean Corpuscular Volume 99.8 fL (80.0-98.0); Mean Platelet Volume 10.9 fL (9.4-12.3); Monocytes Absolute Auto 0.6 X10*3/uL (0.1-1.2); Monocytes Percent Auto 8.1 % (2-11); Neutrophils Absolute Auto 4.3 x10*3/uL (2.0-8.3); Platelet Count 171 X10*3/uL (160-400); Red Cell Distribution Width 13.2 % (11.0-16.0); White Blood Count 7.3 X10*3/uL (4.8-10.8)
[2022-11-29 09:36] LABS: INTERNATIONAL NORM RATIO 1.2 (0.9-1.1); Prothrombin Time 13.7 SEC (10.0-13.1)
[2022-11-29 10:12] LABS: Alanine Aminotransferase 37 U/L (0-31); Albumin Level 3.7 g/dL (3.5-5.0); Alkaline Phosphatase 62 U/L (39-117); Aspartate Amino Transferase 29 U/L (5-31); Bilirubin Direct 0.2 mg/dL (0.0-0.5); Bilirubin Total 0.8 mg/dL (0.0-1.0); Iron 94 mcg/dL (30-160); Percent Iron Saturation 23 % (15-50); Total Iron Binding Capacity 401 mcg/dL (228-428); Total Protein 6.5 g/dL (6.5-8.0); Unsaturated Iron Binding 307 ug/dL
[2022-11-29 10:31] LABS: Ferritin 70 ng/mL (10-250)
[2022-12-01 13:37] LABS: Alpha Fetoprotein 7.1 ng/mL
[2022-12-07 15:24] LABS: FIB-ALT 34 U/L (6-29); FIB-Alpha-2-Macroglobulin 372 mg/dL (106-279); FIB-Apolipoprotein A1 169 mg/dL (101-198); FIB-GGT 49 U/L (3-65); FIB-Haptoglobin 46 mg/dL (43-212); FIB-Total Bilirubin 0.4 mg/dL (0.2-1.2); Liver Fibrosis Score 0.66; Liver Fibrosis Stage F3; Nec Inflam Act Grade A0-A1; Nec Inflam Act Score 0.27
== END 2022-11-29 09:03 | disposition home or self-care (01) ==
LOC: HO.LAB 09:02
PROVIDERS: PCP Internal Medicine; Visit Provider Internal Medicine
DX: K76.0 Fatty (change of) liver, not elsewhere classified (principal); E83.19 Other disorders of iron metabolism; K74.00 Hepatic fibrosis, unspecified; R79.89 Other specified abnormal findings of blood chemistry
CPT/HCPCS: 36415; 80076; 81596; 82105; 82728; 83540; 85025; 85610

== ENCOUNTER → 2022-12-26 12:48 | Outpatient (BNVA) | payer MEDICARE, SELFPAY | PROVIDERS: PCP Internal Medicine; Visit Provider Surgery | DX: Z12.11 Encounter for screening for malignant neoplasm of colon (principal) | CPT/HCPCS: 99202 ==

== ENCOUNTER 2023-02-02 12:13 | Outpatient (REF) | payer MEDICARE, SELFPAY ==
--- NOTE | ~2023-02-02 | XR_ITS ---
EXAMINATION: XR SKULL CLINICAL INFORMATION: Soft tissue indentation right parietal bone COMPARISON: None available. TECHNIQUE: 5 views of the skull were obtained. FINDINGS: There is thinning of the cortex of the right parietal bone compared to the left side. No destructive bone lesion, or lucency or sclerosis is seen by x-ray. The overlying soft tissues are normal. Bones of the skull are otherwise normal. Paranasal sinuses are clear. XR/XR skull <4V IMPRESSION: Thinning of the cortex of the right parietal bone. Normal soft tissues and no bone lesion seen by x-ray. This could be further evaluated with head CT if clinically indicated.
== END 2023-02-02 12:14 | disposition home or self-care (01) ==
LOC: HO.XRAY 12:13
PROVIDERS: PCP Internal Medicine; Visit Provider Internal Medicine
DX: Q75.9 Congenital malformation of skull and face bones, unspecified (principal)
CPT/HCPCS: 70250

== ENCOUNTER 2023-02-03 07:30 | Day surgery (SDC) | payer MEDICARE, SELFPAY ==
[2023-02-01 09:55] VITALS: BMI 28.7
--- NOTE | 2023-02-02 08:59 | HO.ANESPROP2 ---
Documented by User: Clementine Cooper NP 02/02/23 09:01 HPI - Anesthesia Eval Consult details Narrative: 72yo F for Colonoscopy with Possible Polypectomy PMFSH Active Problems Active Problems: All Active Problems (Updated 05/12/22 @ 11:02 by Ciaran Carlos MD) Dyspnea on exertion (Acute) Edema of left lower extremity (Acute) Degenerative tear of medial meniscus of left knee (Acute) Degenerative tear of lateral meniscus of left knee (Acute) Internal derangement of left knee (Acute) Localized osteoarthritis of left knee (Acute) Abdominal pain (Acute) Herpes zoster (Acute) Adult general medical exam (Acute) Screening for diabetes mellitus (Acute) Screening for colon cancer (Acute) Hypertension (Acute) Hyperlipidemia (Acute) Panic disorder (Acute) Primary osteoarthritis of right knee (Acute) Past Medical History Medical History Hyperlipidemia Hypertension Panic disorder Primary osteoarthritis of left knee Primary osteoarthritis of right knee Family History Family History Father Lung cancer Smoker Mother Osteoarthritis Bone cancer Maternal Aunt Osteoarthritis Surgical History Surgical History History of cataract surgery History of colonoscopy History of foot surgery History of hysterectomy History of liver biopsy History of lumpectomy of left breast Social History Social History Housing: House Alcohol intake: current Alcohol intake frequency: 0-2 drinks per day Patient Tobacco Use Status: Never used Tobacco e-Cigarette/Vaping Use: Never Used Second Hand Smoke Exposure: No Use of substances other than those prescribed or required for medical reasons: No Are you DNR?: No Advance Directives: No Advance Directives Information Provided: Yes Recently lost weight without trying: No Nutrition Risks: No Nutritional Risk service: No Current occupational status: employed 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 Cognitive needs: No Hearing needs: No Vision needs: Yes Meds Allergies Allergy/AdvReac Type Severity Reaction Status Date / Time chlorhexidine [CHLORAPREP] Allergy Mild RASH Verified 12/26/22 12:58 cephalexin [Keflex] Allergy Unknown GI upset Verified 12/26/22 12:58 Home Medications Medication Instructions Recorded Confirmed Last Taken Type anastrozole 1 mg tablet 1 mg PO DAILY 07/21/20 02/02/23 Unknown History naproxen 500 mg tablet 500 mg PO DAILY 07/21/20 02/03/23 Unknown History ursodiol 300 mg capsule 300 mg PO BID 07/21/20 02/02/23 Unknown History tretinoin 0.025 % topical cream 1 appl topical BEDTIME 07/20/21 02/02/23 Unknown History cholecalciferol (vitamin D3) 50 50 mcg PO DAILY 12/26/22 02/02/23 Unknown History mcg (2,000 unit) capsule omega-3 fatty acids PO 02/03/23 02/03/23 Unknown History Exam Exam Date and Time: February 02, 2023 0859 Height,Weight and Vital Signs: Height 5 ft 7 in Weight 83.007 kg Pertinent Lab Results Pertinent Lab Results: Laboratory Tests 11/24/22 11/29/22 09:43 09:18 WBC 7.3 Hgb 14.2 Hct 42.9 Plt Count 171 Sodium 141 Potassium 4.3 Chloride 107 Carbon Dioxide 27 BUN 17 H Creatinine 0.99 Narrative Narrative: ECHO 05/2022 Conclusions: - The left ventricular systolic function is normal.? The ? calculated ejection fraction is 63% by biplane method. ? - There is mild calcification of the aortic valve. ? - There is mild mitral annular calcification.? ? ? EKG 04/2022 Vent. Rate : 051 BPM ? ? Atrial Rate : 051 BPM ?? P-R Int : 144 ms? QRS Dur : 078 ms ? ? QT Int : 460 ms ? ? ? P-R-T Axes : 060 -10 046 degrees ?? QTc Int : 423 ms ? Sinus bradycardia with Sinus Arrhythmia Otherwise normal ECG When compared with ECG of 14-DEC-2021 12:04, No significant change was found Assessment and Plan Assessment Anesthesia Assessment: Chart Reviewed Documented by User: Andrew Smith MD 02/03/23 08:31 [facility], [facility] Past Medical History Medical History Hyperlipidemia Hypertension Panic disorder Primary osteoarthritis of left knee Primary osteoarthritis of right knee Family History Family History Father Lung cancer Smoker Mother Osteoarthritis Bone cancer Maternal Aunt Osteoarthritis Family history of problems with anesthesia: No Surgical History Surgical History History of cataract surgery History of colonoscopy History of foot surgery History of hysterectomy History of liver biopsy History of lumpectomy of left breast History of Problems with Anesthesia: No Social History Social History Housing: House Alcohol intake: current Alcohol intake frequency: 0-2 drinks per day Patient Tobacco Use Status: Never used Tobacco e-Cigarette/Vaping Use: Never Used Second Hand Smoke Exposure: No Use of substances other than those prescribed or required for medical reasons: No Are you DNR?: No Advance Directives: No Advance Directives Information Provided: Yes Recently lost weight without trying: No Nutrition Risks: No Nutritional Risk service: No Current occupational status: employed 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 Cognitive needs: No Hearing needs: No Vision needs: Yes Meds Allergies Allergy/AdvReac Type Severity Reaction Status Date / Time chlorhexidine [CHLORAPREP] Allergy Mild RASH Verified 12/26/22 12:58 cephalexin [Keflex] Allergy Unknown GI upset Verified 12/26/22 12:58 Home Medications Medication Instructions Recorded Confirmed Last Taken Type anastrozole 1 mg tablet 1 mg PO DAILY 07/21/20 02/02/23 Unknown History naproxen 500 mg tablet 500 mg PO DAILY 07/21/20 02/03/23 Unknown History ursodiol 300 mg capsule 300 mg PO BID 07/21/20 02/02/23 Unknown History tretinoin 0.025 % topical cream 1 appl topical BEDTIME 07/20/21 02/02/23 Unknown History cholecalciferol (vitamin D3) 50 50 mcg PO DAILY 12/26/22 02/02/23 Unknown History mcg (2,000 unit) capsule omega-3 fatty acids PO 02/03/23 02/03/23 Unknown History Exam Airway Mallampati Class: II TM Dist: >3cm Neck ROM: Limited Loose/Missing/Broken Teeth: No Heart: ok Lungs: ok Assessment and Plan Assessment Anesthesia Assessment: Anesthesia Plan Discussed Final Anesthetic Review Family History of Problems with Anesthesia: No History of Problems with Anesthesia: No NPO: Yes ASA Class: II Final Preanesthetic Review: No Changes in Pt Med Stat, Meds/Allgs Chart Reviewed, Consent Obtained/Reviewed and Anes Risks/Benef Reviewed Patient Risk: Intermediate Procedure Risk: Low Anesthetic Plan Anesthetic Plan: MAC: and Agree w/ Assess. and Plan Disposition: Standard PACU
[2023-02-03 07:50] VITALS: BP 173/83; PULSE 72; RESP 16; TEMP 36.9; O2SAT 96
[2023-02-03] MEDS: Lactated Ringers 1,000 ML 100 ML IVCONT (08:04)
[2023-02-03 08:05] VITALS: BP 140/77; PULSE 61
--- NOTE | 2023-02-03 08:05 | MHC.SHP ---
Pre-Procedural Eval Section A Date of Service: 02/03/23 Section B Chief Complaint: screening Details of Present Illness: For colon cancer screening as recommended by her oncologist, denies GI complaints Relevant Social History: None Present Medications: see Short Stay Collaborative assessment Medical History: Significant History ( hypertension, osteoarthritis, history of breast cancer and endometrial cancer) History of Previous Operations: Relevant previous surgery/procedure and date(s) Allergies: Allergies Allergy/AdvReac Type Severity Reaction Status Date / Time chlorhexidine [CHLORAPREP] Allergy Mild RASH Verified 12/26/22 12:58 cephalexin [Keflex] Allergy Unknown GI upset Verified 12/26/22 12:58 Review of Systems Sugical H&P ROS: Negative: Constitution, Cardiovascular, Respiratory, Neurological, Psychiatric, Hem-Onc, Allergic/Immunologic, Gastrointestinal, Genitourinary, Musculoskeletal, Integumentary, Endocrine and Eyes/Ears/Nose/Throat Exam Surgical H&P Exam: Normal: HEENT, Normal: Heart, Normal: Lungs, Normal: Extremities, Normal: Abdomen, Normal: Skin and Normal: Neurological Plan Diagnosis/Plan: Unchanged I have reviewed the history and physical and performed a pertinent physical examination on my patient. No changes have occurred unless specified. Time Spent With Patient Time: Total time managing care of this patient today ____ minutes.
--- NOTE | 2023-02-03 08:57 | W.PM.OPN ---
Operative Note Operative Note Date of Service: 02/03/23 Narrative: Preop diagnosis: Colon cancer screening Postop diagnosis: Internal and external hemorrhoids, otherwise normal colonoscopy findings Procedure: Colonoscopy Surgeon: Baltazar Sma MD The patient is a 72-year-old female referred for screening colonoscopy. She understood the technique of the planned procedure and was aware of risks, benefits, and alternatives . The patient was brought to the operating room and placed in left lateral decubitus position under monitored anesthesia care. A surgical time-out was done. A full digital rectal exam was done and this did not reveal any significant anal lesions. The tip of the Olympus colonoscope was gently introduced through the anal orifice advanced with insufflation all the way to the cecum. The cecum was intubated. The cecum was identified by visualization of the ileocecal valve as well as the appendiceal orifice. The cecal mucosa was unremarkable. The scope was gradually withdrawn with careful examination of the entire colonic mucosa being done with scope withdrawal. The patient had adequate bowel prep so it was unlikely that any lesion may have been missed. The rectum was reached and there were no lesions seen. The anal canal was unremarkable except for prominent internal and external hemorrhoids.. The scope was then withdrawn completely with desufflation The patient tolerated A procedure well. There were no immediate complications. Her next colonoscopy may be in the next 5 years as per recommendations of her oncologist.
[2023-02-03 09:02] VITALS: BP 118/64; PULSE 70; RESP 18; TEMP 36.5; O2SAT 95
[2023-02-03 09:17] VITALS: BP 106/67; PULSE 62; RESP 16; TEMP 36.4; O2SAT 95
== END 2023-02-03 09:45 | disposition home or self-care (01) ==
PROVIDERS: PCP Internal Medicine; Visit Provider Surgery
PROC: 0DBE8ZZ Excision of Large Intestine, Via Natural or Artificial Opening Endoscopic (ICD-10-PCS; CPT G0105; principal; 2023-02-03 08:40)
DX: Z12.11 Encounter for screening for malignant neoplasm of colon (principal); K64.8 Other hemorrhoids; K64.4 Residual hemorrhoidal skin tags; I10 Essential (primary) hypertension; E78.5 Hyperlipidemia, unspecified; F41.0 Panic disorder [episodic paroxysmal anxiety]; M17.0 Bilateral primary osteoarthritis of knee; Z85.3 Personal history of malignant neoplasm of breast; Z85.42 Personal history of malignant neoplasm of other parts of uterus; Z79.1 Long term (current) use of non-steroidal anti-inflammatories (NSAID); Z79.811 Long term (current) use of aromatase inhibitors; Z79.899 Other long term (current) drug therapy; Z88.1 Allergy status to other antibiotic agents; Z88.8 Allergy status to other drugs, medicaments and biological substances
CPT/HCPCS: G0105

== ENCOUNTER → 2023-02-09 08:54 | Outpatient (REF) | payer MEDICARE, SELFPAY ==
--- NOTE | ~2023-02-09 | NM_ITS ---
Myocardial perfusion study Indication: Shortness of breath on exertion with preoperative cardiovascular risk Technique: The patient was brought in for a Lexiscan perfusion study on 02/09/2023. Patient performed low-level exercise and was injected 0.4 mg of Lexiscan intravenously. Within a minute of injection, 25 mCi of sestamibi was given intravenously. Images were obtained using the SPECT gamma camera interlaced with the gating device. Images were obtained in supine position. Resting perfusion study was performed on 02/14/2020. Patient was administered 20 mCi of sestamibi intravenously at rest. Images were then obtained in supine position. Images obtained with and without CT attenuation. Total 118 mGy-cm. Images were processed with the software and compared side to side in short axis, horizontal long axis and vertical long axis views. Findings: The stress perfusion study showed non attenuated images show minimally reduced uptake in the apex of the LV myocardium. Remainder of the LV myocardium is normally perfused. Attenuation corrected images show mildly reduced uptake in the apex of the LV myocardium. The gated study shows normal LV systolic function with calculated LVEF of 60%. LV cavity is normal in size. The gated study shows normal systolic wall thickening and contraction of segments. Resting study shows no significant change in perfusion pattern compared to stress perfusion study. Gating at rest reveals normal systolic wall motion with ejection fraction at 60%. The findings are consistent with normal myocardial. NM/NM anna perf SPECT rest & str Impression: 1. Myocardial perfusion imaging study shows 2. Gated LVEF is 60% 3. Transient ischemic dilatation not present EKG nondiagnostic for ischemia
--- NOTE | 2023-02-09 09:02 | CA_ITS ---
Acquisition Time: 2023-02-09 09:14:39 Total Exercise Time: 00:02:00 Test Indications: SOB, PREOP Medications: Protocol: LEXISCAN Max HR: 095 BPM 63% of Pred: 149 BPM Max BP: 184/084 mmHG Max Work Load: 1.0 METS Pharmacological stress test with Lexiscan injection while sitting and kicking her legs, without anginal symptoms, without arrhythmias, with normotensive response to injection, without EKG changes. Nuclear images pending. Test reviewed with Dr. Farias. Referred By: Norman Farias Overread By: NANCY PEDRO
== END ==
LOC: HO.CARD 08:54
PROVIDERS: PCP Internal Medicine; Visit Provider Internal Medicine Cardiovascular Disease
DX: Z01.818 Encounter for other preprocedural examination (principal); R06.09 Other forms of dyspnea; I10 Essential (primary) hypertension
CPT/HCPCS: 78452; 93017; A9500; J0280; J2785

== ENCOUNTER → 2023-02-16 08:23 | Outpatient (BNVA) | payer MEDICARE, SELFPAY | PROVIDERS: PCP Internal Medicine; Visit Provider Surgery | DX: Z01.810 Encounter for preprocedural cardiovascular examination (principal); K64.4 Residual hemorrhoidal skin tags; K64.8 Other hemorrhoids; Z98.890 Other specified postprocedural states | CPT/HCPCS: 99212 ==

== ENCOUNTER 2023-02-17 07:19 | Outpatient (REF) | payer MEDICARE, SELFPAY ==
--- NOTE | ~2023-02-17 | CT_ITS ---
EXAMINATION: CT head/brain wo IV con CLINICAL INFORMATION: Further evaluate questionable right parietal calvarial lesion seen on prior skull radiographs COMPARISON: Skull radiographs 02/02/2023 TECHNIQUE: Contiguous axial imaging was performed from the skull base to vertex without intravenous contrast. Sagittal and coronal reformatted images were obtained. This CT examination was performed using dose optimization techniques as appropriate, variously including the following: * Automated exposure control * Adjustment of mA and/or kV according to patient size (this includes techniques or standardized protocols for targeted exams where dose is matched to indication/reason for exam; i.e. extremities or head) Use of iterative reconstruction technique DLP: 727 mGy-cm FINDINGS: Corresponding to previously queried right parietal calvarial thinning on radiographs is a 1.4 cm region of calvarial thinning and indentation along the outer table, best appreciated on coronal image 263, series 7, lined by well corticated margins and without underlying osseous or overlying soft tissue lesion. Slight indentation of the overlying skin contour. Findings are most compatible with a benign etiology. No significant volume loss or hydrocephalus. No territorial loss of moran-white differentiation. No acute intracranial hemorrhage or extra-axial fluid collection. No mass lesion, significant mass effect, or herniation pattern. Intracranial calcific atherosclerotic disease. Bilateral lens extractions. Trace ethmoid air cell mucosal thickening. CT/CT head/brain wo IV con IMPRESSION: Corresponding to previously queried right parietal calvarial thinning on radiographs is a 1.4 cm region of calvarial thinning and indentation along the outer table lined by well corticated margins and without underlying suspicious osseous or overlying soft tissue lesion. Slight indentation of the overlying skin contour. Findings are compatible with a benign etiology. No acute intracranial process.
== END 2023-02-17 07:20 | disposition home or self-care (01) ==
LOC: HO.CT 07:19
PROVIDERS: PCP Internal Medicine; Visit Provider Internal Medicine
DX: M89.9 Disorder of bone, unspecified (principal)
CPT/HCPCS: 70450

== ENCOUNTER 2023-03-10 09:38 | Outpatient (AMB) | payer MEDICARE, SELFPAY ==
--- NOTE | 2023-03-10 09:47 | MHC.PC.OV ---
Vital Signs 03/10/23 09:48 Height 5 ft 7 in Weight 185 lb BMI 29.0 BP 100/60 Blood Pressure Location Lt brachial Position Sitting Pulse 49 L Pulse Source Pulse Oximeter Pulse Oximetry (%) 96 Oxygen Delivery Method Room Air Intake Visit Reasons: Discuss CT from January Intake Note: Patient is here to follow up on CT results. Field Attendant Required: No Pricing Clerk: Not Required per policy Accompanied by: Self / Same As Patient Allergies chlorhexidine [CHLORAPREP] Allergy (Mild, Verified 03/10/23 09:47) RASH cephalexin [Keflex] Allergy (Unknown, Verified 03/10/23 09:47) GI upset Medication List - Last Reconciled 03/10/23 by Ciaran Carlos MD anastrozole 1 mg PO DAILY atenolol 50 mg PO DAILY cholecalciferol (vitamin D3) 50 mcg PO DAILY epinephrine (EpiPen 2-Octavio) 0.3 mg (0.3 mL) IM Q4H PRN hydrochlorothiazide 25 mg PO DAILY PRN lorazepam 1 mg PO BEDTIME PRN naproxen 500 mg PO DAILY omega-3 fatty acids PO rosuvastatin (Crestor) 5 mg PO DAILY 90 days scopolamine base 1 patch transdermal Q3D PRN tretinoin 0.025% 1 appl topical BEDTIME triamcinolone acetonide 0.5% 1 appl topical BID ursodiol 300 mg PO BID valsartan 80 mg PO DAILY 90 days Tobacco use date assessed: 03/10/23 Fall risk assessment: No Falls in past year Last assessed Fall Risk: 03/10/23 Dental Screening Dental Screen Date: 03/10/23 Did you have a dental visit in the last 12 months?: Yes Did you have a dental problem in the last 6 months where you did not have access to dental care?: No Was dental information given to patient?: Patient has dentist HPI Discuss CT from January HPI Details heart rate and BP have been low; some dizziness PFSH Medical History Hyperlipidemia Hypertension Panic disorder Primary osteoarthritis of left knee Primary osteoarthritis of right knee Surgical History History of cataract surgery History of colonoscopy History of colonoscopy (~02/03/23) History of foot surgery History of hysterectomy History of liver biopsy History of lumpectomy of left breast Family History Father Lung cancer Smoker Mother Osteoarthritis Bone cancer Maternal Aunt Osteoarthritis Social History Housing: House Alcohol intake: current Alcohol intake frequency: 0-2 drinks per day Patient Tobacco Use Status: Never used Tobacco e-Cigarette/Vaping Use: Never Used Second Hand Smoke Exposure: No service: No Current occupational status: employed 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 Depression Screening Interpretation: Negative Source: Developed by Drs. Serafin Flores, Christina Sheppard, Garry Perry and colleagues, with an educational adenike from [employer]. Thrive Questionnaire Date Thrive assessed: 10/04/22 Currently or been in a relationship where the following occur: no concerns reported ALMA-7 AMB Questionnaire ALMA-7 Date ALMA - 7 assessed: 10/04/22 Source: Developed by Drs. Serafin Flores, Christina Sheppard, Garry Perry and colleagues, with an educational adenike from [employer]. Review of Systems Const Denies chills, Denies headache(s) and Denies weight loss ENT Denies headache(s) Card Denies chest pain, Denies syncope, Denies irregular heart rhythm and Denies dyspnea Resp Denies chest congestion, Denies cough and Denies dyspnea GI Denies abdominal pain, Denies change in stool character, Denies nausea and Denies vomiting Musc Denies deformity and Denies joint swelling Neuro Denies syncope and Denies headache(s) Physical exam (Primary Care) Vital Signs: Last Vital Signs Pulse 49 L 03/10/23 09:48 BP 100/60 03/10/23 09:48 Pulse Ox 96 03/10/23 09:48 Oxygen Delivery Method Room Air 03/10/23 09:48 BMI result Body Mass Index 29.0 Tobacco/Smoking Status: Tobacco use Status Tobacco use date assessed 03/10/23 03/10/23 09:52 Patient Tobacco Use Status Never used Tobacco 03/10/23 09:52 e-Cigarette/Vaping Use Never Used 03/10/23 09:52 Depression Screening Interpretation: Negative Thrive Assessment: Date of Thrive Assessment Date Thrive assessed 10/04/22 03/10/23 09:52 Currently or been in a relationship where the following occur: no concerns reported Const General: cooperative, healthy appearing and no acute distress Resp Effort & Inspection: normal respiratory effort Auscultation: clear to auscultation bilaterally Percussion: percussion normal Cardio Jugular venous distension: no JVD Rate: regular rate Rhythm: regular rhythm GI Inspection: Yes normal to inspection Assessment and Plan Assessment & Plan (1) Bradycardia: Code(s): R00.1 - Bradycardia, unspecified Plan: taper atenolol Orders: Referrals Neurology Referral R42 - Dizziness and giddiness Coding Level of Care Code Est Pt Level 3 (85279) Diagnoses Bradycardia R00.1
[2023-03-10 09:48] VITALS: BP 100/60; PULSE 49; O2SAT 96; BMI 29.0
== END 2023-03-10 09:59 | disposition home or self-care (01) ==
PROVIDERS: PCP Nurse Practitioner Family; Visit Provider Internal Medicine
DX: R00.1 Bradycardia, unspecified (principal)
CPT/HCPCS: 99213

== ENCOUNTER 2023-05-29 09:31 | Outpatient (REF) | payer MEDICARE, SELFPAY ==
[2023-05-29 10:46] LABS: Cholesterol 157 mg/dL (<200); HDL Cholesterol 53 mg/dL (>40); LDL Cholesterol Calculated 87 mg/dL (<100); Triglycerides 86 mg/dL (<150)
== END 2023-05-29 09:32 | disposition home or self-care (01) ==
LOC: HO.LAB 09:31
PROVIDERS: PCP Internal Medicine; Visit Provider Internal Medicine
DX: E78.5 Hyperlipidemia, unspecified (principal)
CPT/HCPCS: 36415; 80061

== ENCOUNTER 2023-06-07 08:19 | Outpatient (AMB) | payer MEDICARE, SELFPAY ==
[2023-06-07 08:33] VITALS: BP 122/68; PULSE 60; O2SAT 98; BMI 29.0
--- NOTE | 2023-06-07 08:33 | MHC.PC.OV ---
Vital Signs 06/07/23 08:33 Height 5 ft 7 in Weight 185 lb BMI 29.0 BP 122/68 Blood Pressure Location Lt brachial Position Sitting Pulse 60 Pulse Source Pulse Oximeter Pulse Oximetry (%) 98 Oxygen Delivery Method Room Air Intake Visit Reasons: 4M follow up Hair Colorist: Not Required per policy Accompanied by: Self / Same As Patient Allergies chlorhexidine [CHLORAPREP] Allergy (Mild, Verified 06/07/23 08:33) RASH cephalexin [Keflex] Allergy (Unknown, Verified 06/07/23 08:33) GI upset Medication List - Last Reconciled 06/07/23 by Ciaran Carlos MD anastrozole 1 mg PO DAILY atenolol 50 mg PO DAILY cholecalciferol (vitamin D3) 50 mcg PO DAILY epinephrine (EpiPen 2-Octavio) 0.3 mg (0.3 mL) IM Q4H PRN hydrochlorothiazide 25 mg PO DAILY PRN lorazepam 1 mg PO BEDTIME PRN naproxen 500 mg PO DAILY omega-3 fatty acids PO rosuvastatin (Crestor) 5 mg PO DAILY 90 days scopolamine base 1 patch transdermal Q3D PRN tretinoin 0.025% 1 appl topical BEDTIME triamcinolone acetonide 0.5% 1 appl topical BID ursodiol 300 mg PO BID valsartan 80 mg PO DAILY 90 days Tobacco use date assessed: 03/10/23 Fall risk assessment: No Falls in past year Last assessed Fall Risk: 06/07/23 Dental Screening Dental Screen Date: 06/07/23 Did you have a dental visit in the last 12 months?: Yes Did you have a dental problem in the last 6 months where you did not have access to dental care?: No Was dental information given to patient?: Patient has dentist HPI 4M follow up HPI Details HTN hyperlipidemia and anxiety; stable; on rx PFSH Medical History Panic disorder Hyperlipidemia Hypertension Primary osteoarthritis of left knee Primary osteoarthritis of right knee Surgical History History of colonoscopy (~02/03/23) History of colonoscopy History of lumpectomy of left breast History of cataract surgery History of liver biopsy History of foot surgery History of hysterectomy Family History Father Lung cancer Smoker Mother Osteoarthritis Bone cancer Maternal Aunt Osteoarthritis Social History Housing: House Alcohol intake: current Alcohol intake frequency: 0-2 drinks per day Patient Tobacco Use Status: Never used Tobacco e-Cigarette/Vaping Use: Never Used Second Hand Smoke Exposure: No service: No Current occupational status: employed 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 1. Little interest or pleasure in doing things: not at all 2. Feeling down, depressed, or hopeless: not at all 3. Trouble falling or staying asleep, or sleeping too much: not at all 4. Feeling tired or having little energy: not at all 5. Poor appetite or overeating: not at all 6. Feeling bad about yourself - or that you are a failure or have let yourself or your family down: not at all 7. Trouble concentrating on things, such as reading the newspaper or watching television: not at all 8. Moving or speaking so slowly that other people could have noticed. Or the opposite - being so fidgety or restless that you have been moving around a lot more than usual: not at all 9. Thoughts that you would be better off or of hurting yourself in some way: not at all Total score: 0 Depression Screening Interpretation: Negative Depression Screening Done: Yes Source: Developed by Drs. Serafin Flores, Christina Sheppard, Garry Perry and colleagues, with an educational adenike from [employer] Thrive Questionnaire Date Thrive assessed: 10/04/22 AUDIT C Alcohol Use Questionnaire (AUDIT-C) 1. How often do you have a drink containing alcohol?: Monthly or less 2. How many drinks containing alcohol do you have on a typical day when you are drinking?: 1 or 2 3. How often do you have six or more drinks on one occasion?: Never Total Score: 1 Score Reviewed/Action Taken: Yes ALMA-7 AMB Questionnaire ALMA-7 Date ALMA - 7 assessed: 10/04/22 Source: Developed by Drs. Serafin Flores, Christina Sheppard, Garry Perry and colleagues, with an educational adenike from [employer] Review of Systems Const Denies chills, Denies headache(s) and Denies weight loss ENT Denies headache(s) Card Denies chest pain, Denies syncope, Denies irregular heart rhythm and Denies dyspnea Resp Denies chest congestion, Denies cough and Denies dyspnea GI Denies abdominal pain, Denies change in stool character, Denies nausea and Denies vomiting Musc Denies deformity and Denies joint swelling Neuro Denies syncope and Denies headache(s) Physical exam (Primary Care) Vital Signs: Last Vital Signs Pulse 60 06/07/23 08:33 BP 122/68 06/07/23 08:33 Pulse Ox 98 06/07/23 08:33 Oxygen Delivery Method Room Air 06/07/23 08:33 BMI result Body Mass Index 29.0 Tobacco/Smoking Status: Tobacco use Status Tobacco use date assessed 03/10/23 06/07/23 08:39 Patient Tobacco Use Status Never used Tobacco 06/07/23 08:39 e-Cigarette/Vaping Use Never Used 06/07/23 08:39 PHQ-9: PHQ-9 Score PHQ-9: Total score 0 06/07/23 08:39 Depression Screening Interpretation: Negative Thrive Assessment: Date of Thrive Assessment Date Thrive assessed 10/04/22 06/07/23 08:39 Const General: cooperative, comfortable, no acute distress and alert Neck Neck: Yes no lymphadenopathy Thyroid: Thyroid normal Resp Effort & Inspection: normal respiratory effort Auscultation: clear to auscultation bilaterally Percussion: percussion normal Cardio Jugular venous distension: no JVD Palpation: normal PMI Rate: regular rate Rhythm: regular rhythm Heart sounds: S1 normal heart sound present and S2 normal heart sound present GI Inspection: Yes normal to inspection Palpation (GI): No hepatosplenomegaly present Skin General skin exam: no rashes or lesions noted Extrem General: Yes no clubbing, cyanosis or edema Assessment and Plan Assessment & Plan (1) Hypertension: Code(s): I10 - Essential (primary) hypertension Plan: stable; same rx (2) Hyperlipidemia: Code(s): E78.5 - Hyperlipidemia, unspecified Plan: stable; same rx (3) Panic disorder: Code(s): F41.0 - Panic disorder [episodic paroxysmal anxiety] Plan: stable; same rx Orders: Orders Lipid Panel Today E78.5 - Hyperlipidemia, unspecified Complete Blood Count Auto Diff Today D64.9 - Anemia, unspecified Comprehensive Gladys. Panel Fast Today N28.9 - Disorder of kidney and ureter, unspecified Medications: Refilled scopolamine base 1 patch transdermal Q3D PRN 4 ea 0RF nausea and vomiting Coding Level of Care Code Est Pt Level 4 (06948) Diagnoses Hypertension I10 Hyperlipidemia E78.5 Panic disorder F41.0
== END 2023-06-07 08:49 | disposition home or self-care (01) ==
PROVIDERS: PCP Internal Medicine; Visit Provider Internal Medicine
DX: I10 Essential (primary) hypertension (principal); E78.5 Hyperlipidemia, unspecified; F41.0 Panic disorder [episodic paroxysmal anxiety]
CPT/HCPCS: 99214

== ENCOUNTER 2023-06-14 13:26 | Outpatient (REF) | payer MEDICARE, SELFPAY ==
[2023-06-14 14:52] LABS: Appearance Urine Clear; Color Urine Yellow; Glucose Urine UA Negative (Negative); Leukocyte Esterase Urine Negative (Negative); Nitrite Urine Negative (Negative); Specific Gravity - Urine 1.025 (1.005-1.025); Urine Blood Negative (Negative); Urine Ketones Negative (Negative); Urine Protein Negative (Neg-Trace)
== END 2023-06-14 13:27 | disposition home or self-care (01) ==
LOC: HO.LAB 13:26
PROVIDERS: PCP Internal Medicine; Visit Provider Nurse Practitioner Family
DX: R39.9 Unspecified symptoms and signs involving the genitourinary system (principal)
CPT/HCPCS: 81003

== ENCOUNTER 2023-07-26 10:13 | Outpatient (REF) | payer MEDICARE, SELFPAY ==
[2023-07-26 10:26] LABS: MANUAL DIFF FLAG NO
[2023-07-26 11:48] LABS: Basophils Percent Auto 0.7 % (0-2); Eosinophils Absolute Auto 0.1 X10*3/uL (0.0-0.4); Eosinophils Percent Auto 1.8 % (0-4); Hematocrit 41.9 % (37.0-47.0); Hemoglobin 14.1 g/dl (12.0-16.0); Imm Gran Abs Auto 0.02 X10*3/uL (0.00-0.03); Imm Gran Pct Auto 0.4 % (0.0-0.4); Lymphocytes Absolute Auto 1.6 X10*3/uL (1.2-4.9); Lymphocytes Percent Auto 28.3 % (20-40); Mean Corpuscular HGB Conc 33.7 g/dl (31.0-35.0); Mean Corpuscular Hemoglobin 33.7 pg (27.0-33.0); Mean Platelet Volume 12.1 fL (9.4-12.3); Monocytes Absolute Auto 0.5 X10*3/uL (0.1-1.2); Monocytes Percent Auto 8.6 % (2-11); Neutrophils Absolute Auto 3.4 x10*3/uL (2.0-8.3); Neutrophils Percent Auto 60.2 % (45-73); Platelet Count 130 X10*3/uL (160-400); Red Blood Count 4.19 X10*6/uL (4.20-5.50); White Blood Count 5.7 X10*3/uL (4.8-10.8)
[2023-07-26 12:37] LABS: Alanine Aminotransferase 34 U/L (0-31); Albumin Level 3.7 g/dL (3.5-5.0); Alkaline Phosphatase 65 U/L (39-117); Anion Gap 8 (12-20); Aspartate Amino Transferase 34 U/L (5-31); Bilirubin Total 0.5 mg/dL (0.0-1.0); Blood Urea Nitrogen 14 mg/dL (9-16); Calcium 9.7 mg/dL (8.4-10.2); Carbon Dioxide 30 mmol/L (22-29); Chloride 107 mmol/L (96-108); Cholesterol 131 mg/dL (<200); Estimated Glomerular Filt Rate > 60; Glucose Fasting 101 mg/dL (60-99); HDL Cholesterol 36 mg/dL (>40); LDL Cholesterol Calculated 67 mg/dL (<100); Potassium 3.9 mmol/L (3.3-5.1); Sodium 141 mmol/L (135-145); Total Protein 6.8 g/dL (6.5-8.0); Triglycerides 140 mg/dL (<150)
== END 2023-07-26 10:14 | disposition home or self-care (01) ==
LOC: HO.LAB 10:13
PROVIDERS: PCP Internal Medicine; Visit Provider Internal Medicine
DX: D64.9 Anemia, unspecified (principal); N28.9 Disorder of kidney and ureter, unspecified; E78.5 Hyperlipidemia, unspecified
CPT/HCPCS: 36415; 80053; 80061; 85025

== ENCOUNTER 2023-07-28 12:54 | Outpatient (AMB) | payer MEDICARE, SELFPAY ==
[2023-07-28 12:59] VITALS: BP 116/70; PULSE 60; O2SAT 96; BMI 29.3
--- NOTE | 2023-07-28 12:59 | AM.OFFVISMDC ---
Intake Vital Signs 07/28/23 12:59 Height 5 ft 7 in Weight 187 lb 6 oz BMI 29.3 BP 116/70 Blood Pressure Location Lt brachial Position Sitting Pulse 60 Pulse Source Pulse Oximeter Pulse Oximetry (%) 96 Oxygen Delivery Method Room Air Intake Visit Reasons: SWV [id number] Pipe Cleaner Required: No Accompanied by: Self / Same As Patient Allergies chlorhexidine [CHLORAPREP] Allergy (Mild, Verified 07/28/23 13:00) RASH cephalexin [Keflex] Allergy (Unknown, Verified 07/28/23 13:00) GI upset HPI HPI Comments History of Present Illness Details Patient is a 73-year-old female who presents today for subsequent wellness visit. Patient of Dr. Carlos. Labs reviewed with patient in office today Colonscopy: January 2023, 5 year follow up recommended. Mammograms: Done and [facility], February 2023 BMD: January 2023; osteopenia, no change from her previous, Followed by her oncologist. [place] of care was reviewed with the patient and she was provided with a written screening schedule. Patient has a healthcare proxy in place and she was provided with a MOLST form. [facility] Medical History Panic disorder Hyperlipidemia Hypertension Primary osteoarthritis of left knee Primary osteoarthritis of right knee Surgical History History of colonoscopy (~02/03/23) History of colonoscopy History of lumpectomy of left breast History of cataract surgery History of liver biopsy History of foot surgery History of hysterectomy Family History Father Lung cancer Smoker Mother Osteoarthritis Bone cancer Maternal Aunt Osteoarthritis Social History Housing: House Alcohol intake: current Alcohol intake frequency: 0-2 drinks per day Patient Tobacco Use Status: Never used Tobacco e-Cigarette/Vaping Use: Never Used Second Hand Smoke Exposure: No service: No Current occupational status: employed 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 Cognitive needs: No Hearing needs: No Vision needs: Yes Questionnaire Medicare Wellness Checkup [age] What gender do you identify with?: female During the past 4 weeks, how much have you been bothered by emotional problems such as feeling anxious, depressed, irritable, sad or downhearted, and blue?: not at all During the past 4 weeks, has your physical & emotional health limited your social activities with family, friends, neighbors, or groups?: not at all During the past 4 weeks, how much bodily pain have you generally had?: mild pain During the past 4 weeks, was someone available to help you if you needed & wanted help?: yes, quite a bit During the past 4 weeks, what was the hardest physical activity you could do for at least 2 minutes?: moderate Can you get to places out of walking distance without help? (For eg., can you travel alone on buses, taxis or drive your car?): Yes Can you go shopping for groceries or clothes without someone's help?: Yes Can you prepare your own meals?: Yes Can you do your housework without help?: Yes Because of any health problems, do you need the help of another person with your personal care needs such as eating, bathing, dressing or getting around the house?: No Can you handle your own money without help?: Yes During the past 4 weeks, how would you rate your health in general?: very good During the past 4 weeks how have things been going for you?: pretty well Are you having difficulties driving your car?: no Do you always fasten your seat belt when you are in a car?: yes, usually During past 4 weeks, have you been bothered by the following: never: Falling or dizzy when standing up, Trouble eating well?, Teeth or denture problems? and Problems using the telephone?, seldom: Sexual problems? and sometimes: Tiredness or fatigue? Have you fallen 2 or more times in the past year?: No Are you afraid of falling?: No Are you a smoker?: no During the past 4 weeks, how many drinks of wine, beer, or other alcoholic beverages did you have?: 1 drink or less per week Do you exercise for about 20 minutes 3 or more times a week?: yes, some of the time Have you been given information to help with the following?: no: Hazards in your house that might hurt you? and no: Keeping track of your medications? How often do you have trouble taking medicines the way you have been told to take them?: I always take medicine as prescribed How confident are you that you can control & manage most of your health problems?: very confident What is your race?: White Activity of Daily Living Bathing - sponge bath, tub bath or shower: receives no assistance (gets in/out by self, if usual bathing means Dressing - getting clothes from closets & drawers, including inner/outer garments & fasteners.: gets clothes & gets completely dressed without help Toileting - going to the 'toilet room' for urine/bowel elimination & cleaning self/arranging clothes: goes to toilet room, cleans self, arranges clothes without help Transfer: moves in & out of bed and chair without help (may use support object) Continence: controls urination/bowel movements completely by self Feeding: feeds self without help Total Score: 0 Information obtained from: patient Using telephone: independent Traveling: independent Shopping: independent Preparing meals: independent Housework: independent Taking medicine: independent Managing money: independent PHQ-9 Over the last 2 weeks, how often have you been bothered by any of the following problems? 1. Little interest or pleasure in doing things: not at all 2. Feeling down, depressed, or hopeless: not at all 3. Trouble falling or staying asleep, or sleeping too much: several days 4. Feeling tired or having little energy: several days 5. Poor appetite or overeating: not at all 6. Feeling bad about yourself - or that you are a failure or have let yourself or your family down: not at all 7. Trouble concentrating on things, such as reading the newspaper or watching television: not at all 8. Moving or speaking so slowly that other people could have noticed. Or the opposite - being so fidgety or restless that you have been moving around a lot more than usual: not at all 9. Thoughts that you would be better off or of hurting yourself in some way: not at all Total score: 2 Depression Screening Interpretation: Negative Depression Screening Done: Yes 97331 - PHQ-9 Billing: Yes Source: Developed by Drs. Serafin Flores, Christina Sheppard, Garry Perry and colleagues, with an educational adenike from [employer]. Physical Exam Vital Signs: Last Vital Signs Pulse 60 07/28/23 12:59 BP 116/70 12/01/23 12:59 Pulse Ox 96 07/28/23 12:59 Oxygen Delivery Method Room Air 07/28/23 12:59 BMI result Body Mass Index 29.3 Const General: cooperative and no acute distress Orientation/consciousness: patient oriented x3 HEENT Ears: other (whisper test: pass) Neuro General: patient oriented x3 Gait exam (Neuro): Normal gait present Coordination: tandem gait normal and Romberg test negative Office Procedures Flu Questionnaire Does the patient have a severe egg allergy?: No Does the patient have severe life threatening allergies?: No Does the patient have a fever or illness today?: No Has the patient ever had Guillain-[place] Syndrome?: No Has the patient ever had any past reaction to a flu shot?: No Immunizations flu vacc [id number] 6mos up(PF) 60 mcg(15 mcgx4)/0.5 mL IM syringe Performing Provider: ANNA Lindsay [facility] Administered by: MARC Hall on 07/28/23 13:31 Dose Route Admin Location Dispensed Lot Number Expiration Date NDC Psychiatric Social Worker Supervisor 0.5 mL IM Left Deltoid 0.5 mL [id number] 02/25/24 [id number] [employer] VIS Given Date VIS Provided VIS Publication Date 07/28/23 Single Vaccine 21 Eligibility Eligibility Date Funding Source Not [facility] Eligible 07/28/23 Private Assessment & Plan Assessment & Plan (1) Medicare annual wellness visit, subsequent: Code(s): Z00.00 - Encounter for general adult medical examination without abnormal findings Plan: follow up in 1 year. Orders: Orders Influenza [id number] Immunization Today Z23 - Encounter for immunization Medications: Refilled lorazepam 1 mg PO BEDTIME PRN 90 tabs 5RF anxiety Quality Reporting (2019) Depression/Bipolar (159/160/161/177) PHQ-9: Total score: 2 Coding Level of Care Code Medicare Subsequent (G0439) Diagnoses Medicare annual wellness visit, subsequent Z00.00 CPT Codes Advance Care Planning - Time spent: 1-15 minutes, not on file ([id number]) Advance Care Planning Advance Care Planning discussion: Exists, not on file Date of discussion: 07/28/23 Forms completed: Health Care Proxy and MOLST Time spent: 1-15 minutes, not on file Actual minutes spent: 1 Did not discuss due to Cultural/Spiritual beliefs: No
== END 2023-07-28 13:32 | disposition home or self-care (01) ==
PROVIDERS: PCP Nurse Practitioner Family; Visit Provider Nurse Practitioner Family
DX: Z00.00 Encounter for general adult medical examination without abnormal findings (principal); Z23 Encounter for immunization
CPT/HCPCS: 1124F; 90471; 90686; G0439

== ENCOUNTER 2023-12-01 09:46 | Outpatient (REF) | payer MEDICARE, SELFPAY ==
[2023-12-01 11:38] LABS: Cholesterol 134 mg/dL (<200); HDL Cholesterol 41 mg/dL (>40); LDL Cholesterol Calculated 66 mg/dL (<100); Triglycerides 136 mg/dL (<150)
== END 2023-12-01 09:47 | disposition home or self-care (01) ==
LOC: HO.LAB 09:46
PROVIDERS: PCP Internal Medicine; Visit Provider Internal Medicine
DX: E78.5 Hyperlipidemia, unspecified (principal)
CPT/HCPCS: 36415; 80061

== ENCOUNTER 2023-12-04 10:53 | Outpatient (AMB) | payer MEDICARE, SELFPAY ==
[2023-12-04 10:54] VITALS: BP 122/70; PULSE 60; O2SAT 96; BMI 28.8
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
== END 2023-12-04 11:06 | disposition home or self-care (01) ==
PROVIDERS: PCP Internal Medicine; Visit Provider Internal Medicine
DX: I10 Essential (primary) hypertension (principal); E78.5 Hyperlipidemia, unspecified; F41.0 Panic disorder [episodic paroxysmal anxiety]
CPT/HCPCS: 99214

== ENCOUNTER 2023-12-22 10:02 | Outpatient (AMB) | payer MEDICARE, SELFPAY ==
--- OUTSIDE RECORDS SUMMARY | 2023-12-22 10:04 | XMS_ITS | Patient Health Record ---
Author Organization [facility] Address [address] [place] [address] Care Team Providers Care Accordion Repairer Name Role Phone Terrance SHULTZ, Ciaran Primary Care Provider Serafin Dickinson [phone] ALLERGIES Allergen (clinical drug ingredient) Drug/Non Drug Allergy documented on EMR Reaction Allergy Type Onset Date Status ChloraPrep One Step rash Drug Allergy Active REASON FOR REFERRAL No Information MEDICATIONS Medication SIG (Take, Route, Frequency, Duration) Notes Start Date End Date Status Anastrozole 1 MG 1 tablet Orally Once a day for 30 day(s) Active Ursodiol 300 MG 2 capsules Orally Twice a day for 90 days 07/27/2023 Active hydroCHLOROthiazide 25 MG 1 tablet Orall y Once a week Active Crestor 5 MG 1 tablet Orally Once a day Stopped in 06/2016 Not-Taking Rosuvastatin Calcium 5 MG 1 tablet Orall y Once a day for 30 day(s) Active Piroxicam 20 MG 1 capsule with food Orally Once a day Stopped 09/28/16 Not-Taking atenolol 50 1 tablet Oral once a day Active Multi Vitamin/Minerals 1 1 Orally QD Active LORazepam 1 MG (Schedule IV Drug) TAKE 1 TABLET BY MOUTH EVERY DAY AT BEDTIME NEEDED FOR ANXIETY Oral for 90 PRN Active Caltrate 600 Active Ursodiol 300 MG TAKE 2 CAPSULES BY MOUTH TWICE A DAY for 90 Active Vitamin D3 Active Naproxen 500 MG 1 tablet with food or milk as needed Orally every 12 hrs Active IMMUNIZATIONS Vaccine Route Administration Date Status Comme nts Flu vaccine no Preserv 3 and > Unknown 05/31/2016 Admin istered Influenza Unknown 04/28/2017 Administered Influenza Unknown 06/13/2018 Administered Influenza Unknown 06/28/2020 Administered Influenza Unknown 07/13/2021 Administered Influenza Unknown 01/14/2020 Refused SOCIAL HISTORY Sex Assigned At : Social History Observation Description Sex Assigned At Unknown Alcohol Screen Question Answer Notes Did you have a drink contain ing alcohol in the past year? Yes How often did you have a dri nk containing alcohol in the past year? Monthly or less (1 point) How many drinks did you have on a typical day when you were drinking in the past year? 1 or 2 drinks (0 point) How often did you have 6 or more drinks on one occasion in the past year? Never (0 point) Points 1 Interpretation Negative PROBLEMS Problem Type ICD Code Onset Dates Problem Status W/U Status Risk SNOMED Code Notes Problem Hypertension (I10) Active confirmed 59176949 Problem Elevated liver function tests (R79.89) Active confirmed Elevated liver enzymes level (581357861) Problem Elevated liver enzymes (R74.8) Active confirmed 468515796 Problem Fatty liver (K76.0) Active confirmed 149872805 Problem Iron excess (E83.19) Active confirmed 68319628 Problem Gallstones (K80.20) Active confirmed Gallstones (300313734) Problem Elevated ferritin (R79.89) Active confirmed 680107122 Problem Liver fibrosis (K74.0) Active confirmed 02911484 Problem Liver fibrosis (K74.00) Active confirmed 81390936 VITAL SIGNS Temperature 97.7 degrees Fahrenheit 03/24/2023 Blood pressure diastolic 00 mm Hg 03/24/2023 Height 66 in 03/24/2023 Blood pressure systolic 000 mm Hg 03/24/2023 Weight 182 lbs 03/24/2023 BMI 29.37 kg/m2 03/24/2023 Encounters Encounter Location Date Provider Diagnosis [facility] [address] [place] [phone] 03/24/2023 Serafin Olsen Fatty liver K76.0 ; Iron excess E83.19 ; Liver fibrosis K74.00 and Elevated liver function tests R79.89 [facility] [address] [place] [phone] 07/27/2023 Serafin Olsen [facility] [address] [place] [phone] 11/24/2023 Serafin Olsen ASSESSMENTS Encounter Date Diagnosis Assessment Notes Treatment Notes Treatment Clinical Notes 03/24/2023 Fatty liver (ICD-10 - K76.0) Keep donating blood every 3 months, continue the 2 Ursodiol twice a day, and continue to watch diet and weight. 03/24/2023 Iron excess (ICD-10 - E83.19) 03/24/2023 Liver fibrosis (ICD-10 - K74.00) 03/24/2023 Elevated liver function tests (ICD-10 - R79.89) PLAN OF TREATMENT Pending Test Test Name Order Date LIVER PROFILE 11/04/2016 LIVER PROFILE 08/19/2020 LIVER PROFILE 08/26/2019 LIVER PROFILE 01/14/2020 LIVER PROFILE 12/07/2016 LIVER PROFILE 12/05/2018 LIVER PROFILE 09/03/2018 LIVER PROFILE 02/15/2017 LIVER PROFILE 02/02/2017 LIVER PROFILE 11/01/2022 LIVER PROFILE 04/13/2017 IRON + IBC (FE) 11/01/2022 IRON + IBC (FE) 11/30/2017 IRON + IBC (FE) 10/06/2021 IRON + IBC (FE) 11/04/2016 IRON + IBC (FE) 08/19/2020 IRON + IBC (FE) 08/26/2019 IRON + IBC (FE) 01/14/2020 IRON + IBC (FE) 12/05/2018 IRON + IBC (FE) 09/03/2018 FERRITIN 02/02/2017 FERRITIN 12/05/2018 FERRITIN 09/03/2018 FERRITIN 04/13/2017 FERRITIN 11/04/2016 FERRITIN 08/19/2020 FERRITIN 08/26/2019 FERRITIN 01/14/2020 CBC w DIFF 01/14/2020 CBC w DIFF 02/02/2017 CBC w DIFF 11/01/2022 CBC w DIFF 09/03/2018 CBC w DIFF 10/06/2021 CBC w DIFF 11/04/2016 CBC w DIFF 08/19/2020 CBC w DIFF 08/26/2019 PROTHROMBIN TIME (PT, INR) 08/26/2019 PROTHROMBIN TIME (PT, INR) 02/02/2017 PROTHROMBIN TIME (PT, INR) 11/01/2022 PROTHROMBIN TIME (PT, INR) 09/03/2018 PROTHROMBIN TIME (PT, INR) 10/06/2021 PROTHROMBIN TIME (PT, INR) 11/04/2016 PARTIAL THROMBOPLASTIN TIME (PTT) 2016 HEPATITIS B, C PROFILE 11/04/2016 [id number] (A1A) 11/04/2016 ALPHA-FETOPROTEIN,TUMOR MARKER 9 ALPHA-FETOPROTEIN,TUMOR MARKER 9 ALPHA-FETOPROTEIN,TUMOR MARKER 8 ALPHA-FETOPROTEIN,TUMOR MARKER 3 ALPHA-FETOPROTEIN,TUMOR MARKER 2 MITOCHONDRIAL AB 11/04/2016 SMOOTH MUSCLE ANTIBODIES 11/04/2016 HEMOCHROMATOSIS (C282Y) 11/11/2016 US ABD 08/19/2020 US ABD 11/11/2016 FLUOR. ANTINUCLEAR AB SCREEN (ROSA) 10/26 HCV LIVER FIBROSIS, FIBRO TEST 7 HCV LIVER FIBROSIS, FIBRO TEST 2 US ABDOMEN COMP WITH ELASTOGRAPHY 2022 US ABDOMEN COMP WITH ELASTOGRAPHY 2021 Liver Panel 10/06/2021 Ferritin 10/06/2021 Ferritin 11/01/2022 Alpha Fetoprotein 08/19/2020 Liver Fibrosis Pnl 11/01/2022 Next Appt Details Provider Name:Serafin Olsen , 04/16/2024 09:10:00 AM, [address] [facility], [address], [place], [address], Insurance Providers Payer Name Payer Address Payer Phone Subscriber Number Group Number Insured Name Patient Relationship to Insured Coverage Start Date Coverage End Date MEDICARE OF [place] [address] [place] [address] [id number] CATRACHO HELGA Self - patient is the insured [employer] CLAIMS [address] [place] [address] [id number] ORA HAYDENELLEN Self - patient is the insured MEDICAL (GENERAL) HISTORY Medical History History ICD Code Hypertension 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 Christina bingham in 2007 and August of 2015, both of which were negative for any tubular adenomas Fatty liver---complete liver w/u has been negative--labs and U/S suggest F3-F4 fibrosis--scheduled for a liver biopsy on 02/13/17--this revealed a mild to moderate steatohepatitis, Grade 1/4, and moderate fibrosis, Stage III/IV--iron stains were only 1+. There was no evidence of cirrhosis. She was started on Ursodiol after the biopsy. Hemochromatosis genetic tests were negative Breast cancer on the left di agnosed November 2018- had lumpectomy and radiation finished in 03/2019 Elevated Ferritin levels in the 800 range, but with normal iron and iron saturations. Genetic testing for hemochromatosis was negative. The liver biopsy showed only 1+ iron stains, I feel the elevated ferritin is in relation to the component of steatohepatitis. I recommended that she tried to donate blood on a regular basis every 6-8 weeks, and I did not think she need therapeutic phlebotomy Gallstones--these have been asymptomatic. I have reviewed the potential symptoms a gallbladder disease with her on numerous occasions, including the visit in February of 2023 Surgical History Surgery Date(Month/Year) TROY 2006 Left foot/toe surgery Cataract-lens implants-right Right knee arthroscopy Left breast lumpectomy as above 01/2019
--- OUTSIDE RECORDS SUMMARY | 2023-12-22 10:04 | XMS_ITS | Patient Health Record ---
[facility] Address [address] [place] [address] Care Team Providers Care Food Safety Officer Name Role Phone Ciaran Carlos MD Primary Care Provider José Miguel Montaño Unavailable [phone] ALLERGIES Allergen (clinical drug ingredient) Drug/Non Drug Allergy documented on EMR Reaction Allergy Type Onset Date Status ChloraPrep One Step Rash Drug Allergy Active Keflex abdominal pain Drug Allergy Ac tive REASON FOR REFERRAL No Information MEDICATIONS Medication SIG (Take, Route, Frequency, Duration) Notes Start Date End Date Status Caltrate 600 1500 (600 Ca) MG as directed Orally Active Anastrozole 1 MG 1 tablet Orally Once a day for 30 day(s) Active Gemfibrozil 600 MG Orally once a day Not-Taking Voltaren 1 % as directed Externally Active Rosuvastatin Calcium 5 MG 1 tablet Orall y Once a day Active Crestor 5 mg Not-Tanmay ing Gabapentin 300 MG 1 capsule Orally Once a day for 10 Not-Taking Atenolol 50 MG Orally Once a day Active Valsartan Active Piroxicam Not-Taking Naproxen Active hydroCHLOROthiazide 25 MG Orally Once a day Active Ursodiol 300 MG Orally Acti ve IMMUNIZATIONS Vaccine Route Administration Date Status Comme nts COVID-19 Moderna Vaccine Unknown 12/23/2020 Administere d 11/25/2020 SOCIAL HISTORY Tobacco Use: Social History Observation Description Date Details (start date - stop date) Never Smoker NA - NA Sex Assigned At : Social History Observation Description Sex Assigned At Unknown Tobacco Use/Smoking Question Answer Notes Are you a: nonsmoker Alcohol Screen Question Answer Notes Did you have a drink containing alcohol in the p ast year? No Points 0 Interpretation Negative Tobacco use other than smoking: Question Answer Notes Are you an other tobacco user? No PROBLEMS Problem Type ICD Code Onset Dates Problem Status W/U Status Risk SNOMED Code Notes Problem Pain in left foot (M79.672) Active confirmed Pain in left fo ot (925843188436560) Problem Primary osteoarthrit is, left ankle and foot (M19.072) Active confirmed Localized, prim deysi osteoarthritis of the ankle and/or foot (237083178) Problem Hallux rigidus, left foot (M20.22) Active confirmed Acquired hallux rigidus (0485986) Problem Other hammer toe(s) (acquired), right foot (M20.41) Active confirmed Acquired hammer toe of right foot (1412203565790477) Problem Other hammer toe(s) (acquired), left foot (M20.42) Active confirmed Acquired hammer toe of left foot (1715972113133557) Problem Hallux rigidus, right foot (M20.21) Active confirmed Acquired hallux rigidus (6746196) VITAL SIGNS Blood pressure diastolic 80 mm Hg 04/17/2023 Height 5 ft 7 in in 04/17/2023 Blood pressure systolic 140 mm Hg 04/17/2023 Weight 176 lbs 04/17/2023 BMI 27.56 kg/m2 04/17/2023 Encounters Encounter Location Date Provider Diagnosis [facility] [address] [address] 04/17/2023 José Miguel Crooks Other hammer toe(s) (acquired), left foot M20.42 ; Pain in left foot M79.672 ; Other hammer toe(s) (acquired), right foot M20.41 ; Primary osteoarthritis, left ankle and foot M19.072 ; Calcaneal spur, right foot M77.31 ; Metatarsalgia, right foot M77.41 ; Tailor's bunion of right foot M21.621 ; Tailor's bunion of left foot M21.622 ; Hallux rigidus, right foot M20.21 and Hallux rigidus, left foot M20.22 ASSESSMENTS Encounter Date Diagnosis Assessment Notes Treatment Notes Treatment Clinical Notes 04/17/2023 Other hammer toe(s) (acquired), left foot (ICD-10 - M20.42) 04/17/2023 Pain in left foot (ICD-10 - M79.672) 04/17/2023 Other hammer toe(s) (acquired), right foot (ICD-10 - M20.41) 04/17/2023 Primary osteoarthritis, left ankle and foot (ICD-10 - M19.072) 04/17/2023 Calcaneal spur, right foot (ICD-10 - M77.31) 04/17/2023 Metatarsalgia, right foot (ICD-10 - M77.41) 04/17/2023 Tailor's bunion of right foot (ICD-10 - M21.621) 04/17/2023 Tailor's bunion of left foot (ICD-10 - M21.622) 04/17/2023 Hallux rigidus, right foot (ICD-10 - M20.21) 04/17/2023 Hallux rigidus, left foot (ICD-10 - M20.22) PLAN OF TREATMENT Pending Test Test Name Order Date X ray : Foot, left 2V 05/14/2012 X ray : Foot, left 2V 07/16/2012 X ray : Foot, left 2V 07/25/2012 X ray : Foot, left 2V 08/08/2012 X ray : Foot, right 2V 05/14/2012 X ray : Foot, left 3V 04/08/2021 X ray : Foot, left 3V 04/13/2015 X ray : Foot, left 3V 09/18/2018 X ray : Foot, left 3V 06/17/2019 X ray : Foot, left 3V 07/15/2019 X ray : Foot, left 3V 06/03/2019 X ray : Foot, left 3V 01/06/2020 X ray : Foot, right 3V 01/06/2020 X ray : Foot, right 3V 07/15/2019 X ray : Foot, right 3V 09/18/2018 X ray : Foot, right 3V 06/17/2019 X ray : Foot, right 3V 06/03/2019, J0702- INJECT or DRAIN, JOINT/BUR SA 04/08/2021, K0580-KJEMU/INJECT, JOINT/BURSA 0 09/18/2018 71335, Z8035-OKHHE/INJECT, JOINT/BURSA 0 03/15/2021, G7673-HNGLQ/INJECT, JOINT/BURSA 1 09/12/2021 23062, R8473-FJSVV/INJECT, JOINT/BURSA 1 09/14/2018 62620, J0702- Neuroma/Injection 04/13/20 15 41801, J0702- Neuroma/Injection 05/13/20 15 48444, J0702- Neuroma/Injection 03/16/20 16 Insurance Providers Payer Name Payer Address Payer Phone Subscriber Number Group Number Insured Name Patient Relationship to Insured Coverage Start Date Coverage End Date Medicare National [facility] [employer] [address] [place] [address] [id number] Sada Mera Self - patient is the insured [employer] [address] [place] [address] [phone] [id number] Sada Mera Self - patient is the insured MEDICAL (GENERAL) HISTORY Medical History History ICD Code Arthritis Cholesterol high blood pressure chicken pox Surgical History Surgery Date(Month/Year) hysterectomy apr 2007 hammer toe 07/12/2012 arthroscopic knee surgery right knee 2017 cataract surgery 04/2018 Breast Surgery-lumpectomy 12/2018 HT L 4th R4,5, Exotosis R5 DIPJ, Skin le elisha R ft 05/30/2019 Hospitalization History Reason Date(Month/Year) Arthrocopic knee surgery, right 05/2018
--- OUTSIDE RECORDS SUMMARY | 2023-12-22 10:04 | XMS_ITS | Continuity of Care Document ---
Author Organization [facility] Address [address] [place] [address]- Care Team Providers Care Ambulance Officer Name Role Phone Terrance SHULTZ, Ciaran Camejo Primary Care Physician Encounter [facility] Date(s): 08/23/22 - 09/22/22 [facility] [address] [place] [id number] Allergies, Adverse Reactions, Alerts Substance Reaction Severity Status Keflex GI upset Active ChloraPrep One-Step 1 Rash Active 1Patient describes red hivey like rash over surgical site and under arm to mid chest only, itchy Medications anastrozole 1 mg oral tablet 1 tablet, By Mouth, Daily, # 90 tablet, 3 Refills, [facility], 170, cm, 10/16/21 14:56:00 EST,Height, 80.7, kg, 10/16/21 14:56:00 EST, Dry Weight Start Date: 01/25/22 Status: Ordered atenolol 50 mg oral tablet 50 mg, 1, tablet, By Mouth, Daily in AM, Refills 0, Maintenance, 12/10/18 10:55:59 EDT Start Date: 12/10/18 Status: Ordered Caltrate 600 mg oral tablet 2 tablet = 1,200 mg, By Mouth, Daily in AM, 0 Refills, Maintenance, 12/10/18 10:56:43 EDT Start Date: 12/10/18 Status: Ordered Crestor 5 mg oral tablet 1 tablet = 5 mg, By Mouth, Daily, 0 Refills, Maintenance, 08/23/22 11:01:00 EST, Partial fill upon patient request if the prescription is for a schedule II opioid drug. Start Date: 08/23/22 Status: Ordered Hydrochlorothiazide = 25 mg, By Mouth, Daily in AM, 0 Refills, Maintenance, 12/10/18 10:56:10 EDT Start Date: 12/10/18 Status: Ordered ursodiol 300 mg oral capsule 2 capsules, By Mouth, Daily in AM, # 180 capsule, Refills 0, Maintenance, 12/10/18 10:56:53 EDT Start Date: 12/10/18 Status: Ordered valsartan 80 mg oral tablet 80 mg, 1, tablet, By Mouth, Daily, Refills 0, Maintenance, 08/23/22 11:01:00 EST, Partial fill uponpatient request if the prescription is for a schedule II opioid drug. Start Date: 08/23/22 Status: Ordered Problem List Condition Confirmation Course Effective Dates Status Health St atus Informant Breast cancer of upper-outer quadrant of left female breast Confirmed Active Social History Social History Type Response Smoking Status Never (less than 100 in lifetime) entered on: 12/10/18 Sex Patient Care team information Care Team Personnel Name: Cortney Kapadia Position: S Onco RN Member Role: Primary Care Nurse Name: Treasure Oseguera [place] Position: S Onco RN Member Role: Primary Care Nurse Name: Terrance SHULTZ, Ciaran Camejo Position: Reference Physician Member Role: PCP Address: Address: [address] [place] [address]- Care Team Related Persons Name: JOSLYN HAYDENDRICK Address: home [address] [place] [id number]
--- OUTSIDE RECORDS SUMMARY | 2023-12-22 10:04 | XMS_ITS | Continuity of Care Document ---
Author Organization [facility] Address [address] [place] [address]- Care Team Providers Care Blind Hanger Name Role Phone Ciaran Carlos MD Primary Care Physician [place] [facility] [place] 08/14/23 - 09/13/23 [facility] [address] [place], [place] [address] Attending Physician: Admtr, Ame Admitting Physician: AdmtrAme Referring Physician: Admtr, Ar8 Allergies, Adverse Reactions, Alerts Substance Reaction Severity Status Keflex GI upset Active ChloraPrep One-Step 1 Rash Active 1Patient describes red hivey like rash over surgical site and under arm to mid chest only, itchy Medications anastrozole 1 mg oral tablet 1 tablet, By Mouth, Daily, # 90 tablet, 3 Refills, 12/22/22 12:32:00 EDT, [facility]/pharmacy #[id number], 170, cm, 08/23/22 10:55:00 EST, Height, 83.3, kg, 08/23/22 10:55:00 EST, Dry Weight Start Date: 12/22/22 Status: Ordered atenolol 50 mg oral tablet [...] List Condition Confirmation Course Effective Dates Status H ealth Status Informant Hypertension Confirmed Active Hyperlipidemia Confirmed Active Abnormal liver function test Confirmed Active Breast cancer of upper-outer quadrant of left female breast, Left breast, upper outer quadrant, infiltrating ductal carcinoma, stage I, pT1 ap N0 M0, ER positive, MI positive, HER-2/antonino negative Confirmed 2019 Active Social History Social History Type Response Smoking Status Never (less than 100 in lifetime) entered on: 12/10/18 Sex Patient Care team information Care Team Personnel Name: Cortney Kapadia Position: S Onco RN Member Role: Primary Care Nurse Name: Treasure Oseguear [place] Position: S Onco RN Member Role: Primary Care Nurse Name: Terrance SHULTZ, Ciaran Camejo Position: Reference Physician Member Role: PCP Address: Address: [address] [place] [address]- Care Team Related Persons Name: SALVADOR HAYDEN Address: home [address] [place] [id number]
--- OUTSIDE RECORDS SUMMARY | 2023-12-22 10:04 | XMS_ITS | Continuity of Care Document ---
Author Organization [facility] ter Address [address] [place] [address]- Care Team Providers Care Rug Scratcher Name Role Phone Terrance SHULTZ, Ciaran Camejo Primary Care Physician Encounter [facility] [place] Date(s): 01/27/23 - 04/22/[address] [address]- Attending Physician: Holland Lu MD Referring Physician: Holland Lu MD Allergies, Adverse Reactions, Alerts Substance Reaction Severity Status Keflex GI upset Active ChloraPrep One-Step 1 Rash Active 1Patient describes red hivey like rash over surgical site and under arm to mid chest only, itchy Medications anastrozole 1 mg oral tablet 1 tablet, By Mouth, Daily, # 90 tablet, 3 Refills, 12/22/22 12:32:00 EDT, [facility]/pharmacy #[id number], 170, cm, 08/23/22 10:55:00 EST, Height, [...] 100 in lifetime) entered on: 12/10/18 Sex History and physical note * Event Display: History and Physical Hospital Authored Date: [id number] SURGICAL HISTORY AND PHYSICAL DATE: 03/30/2023 PRIMARY DIAGNOSIS: Osteoarthritis of the right knee. REASON FOR ADMISSION: The patient is being admitted for right total knee arthroplasty with Dr. Lu on 03/30/2023. HISTORY OF PRESENT ILLNESS: Mrs. Hayden is a 72-year-old female who presents here today with bilateral knee pain, right worse than left. It is severe, it is worsens with activities. She has tried andfailed nonoperative measures, including anti-inflammatories, physical therapy and injections. She states the pain is significant enough that it interferes with her ability to perform activities of daily living as well as social tasks and she would now like to pursue a right total knee arthroplasty with Dr. Lu on 03/30/2023. PAST MEDICAL HISTORY: 1. Osteoarthritis. 2. Abnormal liver function tests. 3. Hyperlipidemia. 4. Hypertension. 5. Left breast ductal carcinoma for which she is on anastrozole therapy. 6. Adenoma endometrium in 2006. 7. Osteopenia. 8. Obesity with a BMI of 31.6. PAST SURGICAL HISTORY: 1. Total abdominal hysterectomy/bilateral salpingo-oophorectomy in 2007. 2. Left breast lumpectomy in 2019. 3. Hammertoe surgery of the left toe in 2019. MEDICATIONS: 1. Anastrozole 1 mg by mouth once daily. 2. Atenolol 50 mg by mouth. Patient was instructed she can take the atenolol by mouth. She was instructed she could take atenolol, the morning of surgery. 3. Caltrate 600 mg 2 tablets by mouth once daily in the morning. 4. Crestor 5 mg by mouth once daily in the morning. 5. Hydrochlorothiazide 25 mg by mouth once daily in the morning. 6. Ursodiol 600 mg by mouth once daily in the morning. She was instructed she could take this in the morning of surgery. 7. Valsartan 80 mg by mouth once daily in the morning. ALLERGIES: The patient reports an allergy to CHLORAPREP, CHLORHEXIDINE, which causes a rash. She also reports an allergy to KEFLEX of GI UPSET. SOCIAL HISTORY: The patient is . She reports a rare alcoholic beverage. Denies use of any tobacco or recreational drugs. REVIEW OF SYSTEMS: Twelve point review of system is negative with the exception of HPI. PHYSICAL EXAMINATION: VITAL SIGNS: Height 64 inches, weight 184 pounds. Temperature 96.4 degrees, blood pressure 105/58 with a pulse of 70 beats per minute. GENERAL: Alert and oriented. Normal insight, affect, and grooming. SKIN: The patient with a couple scattered bruises noticed, scattered on arms and legs is intact without rash. Nails without clubbing or cyanosis. CHEST: Lungs are clear to auscultation bilaterally, breathing unlabored. CARDIOVASCULAR: Heart has a regular rate and rhythm, normal S1, S2. ABDOMEN: Flat, soft, nontender. EXTREMITIES: Lower extremities, the right knee has no erythema, no abrasions and no edema noted. There is a varus alignment. Range of motion and extension 0 degrees, flexion greater than 125 degrees.Bilateral lower extremities with positive motor sensation screening intact. Calves are supple and nontender. Ankle motion satisfactory and skin about the feet is intact. PREOPERATIVE DIAGNOSTIC DATA: EKG reads sinus bradycardia with minimal voltage criteria for left ventricular hypertrophy at 55 beats per minute. Orthopedic x- ray demonstrates severe DJD present on the right knee, changes consistent includes joint space narrowing, subchondral sclerosis and osteophyte formation. The arthrosis primarily affects the medial compartment with a varus alignment. The patient had a stress perfusion study performed in 01/2023 and the findings showed an ejection fraction of 60% and are consistent with a normal myocardium. LABORATORY DATA: CBC from 03/06/2023 shows hemoglobin of 14.7, hematocrit of 44, platelet count is 145. Coags show an INR of 1.2. Chemistries demonstrate hemoglobin A1c of 5.6, creatinine is 0.9 and estimated GFR of 67. Most recent liver enzymes are from 01/2022 showing an AST of 49 and ALT of 46. PHYSICIANS: The patient's primary care provider is Dr. Ciaran Carlos. She was seen by Dr. Farias from Cardiology. ASSESSMENT AND PLAN: The patient has advanced osteoarthritis of bilateral knees and is now for right total knee arthroplasty with Dr. Lu on 03/30/2023. The patient was seen by the medical consultative preop clinic, who states that the patient is a low cardiac and pulmonary risk with complications and there is no absolute medical contraindications identified to proceeding with the proposed surgery. The patient reports being up-to-date with dental services, has no active issues. The patientwill receive intravenous tranexamic acid. Plan will to be on aspirin postop for DVT prophylaxis. Wewill recheck platelet levels while she is in the hospital and ensure they do not continue to drop. We will not use Celebrex due to her history of decreased GFR. We will also plan to recheck an INR morning of surgery since she was 1.2. The patient has a reported allergy to ChloraPrep and chlorhexidine, so she will not able to use the chlorhexidine wash prior to surgery. Discharge plans will be to home with services. The patient plans to spend the night. The patient has been counseled regarding the risks and benefits of the proposed surgery. Questions have been answered and acknowledges understanding. She wishes to proceed with surgery and signed the consents. She will have 1 week of in-home physical therapy prior to going to outpatient physical therapy. Prescription sent to the local pharmacy at the time of this appointment include aspirin, Colace, and pantoprazole. She will need pain medication sent home from the pharmacy. CONTACTS: [employer], who can be reached at [phone]. Dictated by: Gely Shin N.P. Signing Clinician: Holland Lu M.D. Dictated: 03/16/2023 10:44:27 Transcribed: 06:29:04 AM Transcribed by: HERMELINDO DocID: [id number] PRELIMINARY REPORT UNLESS MANUALLY/ELECTRONICALLY SIGNED Patient Care team information Care Team Personnel Name: Cortney Kapadia Position: S Onco RN Member Role: Primary Care Nurse Name: Treasure Oseguera MA Position: S Onco RN Member Role: Primary Care Nurse Name: Terrance SHULTZ, Ciaran Camejo Position: Reference Physician Member Role: PCP Address: Address: [address] [place] [id number] Care Team Related Persons Name: SALVADOR HAYDEN Address: home [address] [place] [address]
--- OUTSIDE RECORDS SUMMARY | 2023-12-22 10:05 | XMS_ITS | Continuity of Care Document ---
Author Organization [facility] Address [address] [place] [address]- Care Team Providers Care Sausage Linker Name Role Phone Ciaran Carlos MD Primary Care Physician Encounter [facility] [place] Date(s): 02/15/23 - 03/17/23 [facility] [address] [place], [place] [address] Attending Physician: Admtr, Ame Admitting Physician: AdmtrAme [...] 90 tablet, 3 Refills, 12/22/22 12:32:00 EDT, [facility]/pharmacy #[id number], 170, cm, 08/23/22 10:55:00 EST, [...] RN Member Role: Primary Care Nurse Name: Ciaran Carlos MD Position: Reference Physician Member Role: PCP Address: Address: [address] [place] [address]- Care Team Related Persons Name: JOSLYN HAYDENDRICK Address: home [address] [place] [address]
--- OUTSIDE RECORDS SUMMARY | 2023-12-22 10:05 | XMS_ITS | Continuity of Care Document ---
Author Organization [facility] Address [address] [place] [address]- Care Team Providers Care Chainstitch Pants Outseamer Name Role Phone Terrance SHULTZ, Ciaran Camejo Primary Care Physician [place] [facility] [place](s): 02/22/23 - 03/24/23 [facility] Care [address] [place] [id number] Allergies, Adverse Reactions, Alerts Substance Reaction Severity Status Keflex GI upset Active ChloraPrep One-Step 1 Rash Active 1Patient describes red hivey like rash over surgical site and under arm to mid chest only, itchy Medications anastrozole 1 mg oral tablet 1 tablet, By Mouth, Daily, # 90 tablet, 3 Refills, 12/22/22 12:32:00 EDT, [facility]/pharmacy #[id number], 170, cm, 08/23/22 10:55:00 EST, Height, [...] Reference Physician Member Role: PCP Address: Address: [address] [place] [address]- Care Team Related Persons Name: SALVADOR HAYDEN Address: home [address] [place] [address]
--- OUTSIDE RECORDS SUMMARY | 2023-12-22 10:05 | XMS_ITS | Continuity of Care Document ---
Author Organization [facility] Address [address] [place] [address]- Care Team Providers Care Gold Miner Blasting Name Role Phone Ciaran Carlos MD Primary Care Physician Encounter [facility] [place] Date(s): 08/17/22 - 10/23/22 [facility] Care [address] [place] [id number] Discharge Disposition: A-D/C Home Attending Physician: Vidya Kang MD Admitting Physician: Vidya Kang MD Referring Physician: Ciaran Carlos MD Allergies, Adverse Reactions, Alerts Substance Reaction Severity Status Keflex GI upset Active ChloraPrep One-Step 1 Rash Active 1Patient describes red hivey like rash over surgical site and under arm to mid chest only, itchy Medications anastrozole 1 mg oral tablet 1 tablet, By Mouth, Daily, # 90 tablet, 3 Refills, [facility] [address], 170, cm, 10/16/21 14:56:00 EST,Height, 80.7, kg, [...] quadrant of left female breast Confirmed Active Vital Signs Most recent to oldest [Reference Range]: 1 Height 170 cm (08/23/22 10:55 AM) Weight 83.3 kg (08/23/22 10:55 AM) Oxygen Saturation [94-100 %] 95 % (08/23/22 10:55 AM) Pulse Rate [55-90 bpm] 58 bpm (08/23/22 10:55 AM) Body Mass Index [18.5-24.99 kg/m2] 28.82 kg/m2 *H* (08/23/22 10:55 AM) Blood Pressure [90-138/55-84 mm Hg] 176/ 82mm Hg *H* (08/23/22 10:55 AM) Temperature [96.8-100.4 DegF] 98.1 DegF (08/23/22 10:55 AM) Blood pressure sites Arm, right (08/23/22 10:55 AM) Temperature Route Oral (08/23/22 10:55 AM) Dry Weight 83.3 kg (08/23/22 10:55 AM) Weight Obtained Via Standing scale (08/23/22 10:55 AM) Dry Weight Obtained Via Standing scale (08/23/22 10:55 AM) Social History Social History Type Response Smoking Status Never (less than 100 in lifetime) entered on: 12/10/18 Sex Patient Care team information Care Team Personnel Name: Steffi Cortney Position: [facility] Onco RN Member Role: Primary Care Nurse Name: Treasure Oseguera MA Position: [facility] Onco RN Member Role: Primary Care Nurse Name: Ciaran Carlos MD Position: Reference Physician Member Role: PCP Address: Address: [address] [place] [address]- Care Team Related Persons Name: CATRACHOSALVADOR Address: home [address] [place] [address]
--- OUTSIDE RECORDS SUMMARY | 2023-12-22 10:05 | XMS_ITS | Continuity of Care Document ---
Author Organization [facility] Address [address] [place] [address]- Care Team Providers Care Training And Development Manager Name Role Phone Ciaran Carlos MD Primary Care Physician Encounter [facility] [place] Date(s): 02/15/23 - 04/24/23 [facility] Care [address] [place] [address] Discharge Disposition: A-D/C Home Attending Physician: [...] 90 tablet, 3 Refills, 12/22/22 12:32:00 EDT, [facility]/pharmacy #[id number], 170, cm, 08/23/22 10:55:00 EST, Height, [...] oldest [Reference Range]: 1 Height 170 cm (02/22/23 1:59 PM) Weight 83.7 kg (02/22/23 1:59 PM) Oxygen Saturation [94-100 %] 97 % (02/22/23 1:59 PM) Pulse Rate [55-90 bpm] 60 bpm (02/22/23 1:59 PM) Body Mass Index [18.5-24.99 kg/m2] 28.96 kg/m2 *H* (02/22/23 1:59 PM) Blood Pressure [90-138/55-84 mm Hg] 159/ 74mm Hg *H* (02/22/23 1:59 PM) Temperature [96.8-100.4 DegF] 98.3 DegF (02/22/23 1:59 PM) Mode of Delivery (Oxygen) Room air (02/22/23 1:59 PM) Blood pressure sites Arm, right (02/22/23 1:59 PM) Temperature Route Oral (02/22/23 1:59 PM) Weight Obtained Via Standing scale (02/22/23 1:59 PM) Social History Social History Type Response Smoking Status Never (less than 100 in lifetime) entered on: 12/10/18 Sex Note * Treasure Oseguera MA: PERFORM, SIGN, VERIFY Event Display: Patient Education/Instruction Authored Date: [id number] [facility] *Heme/Onc Adult Clinical Summary Name HELGA HAYDEN Age 72 Years 1950 PCP Ciaran Carlos MD PCP Visit Date 02/15/2023 15:57:00 Additional Instructions: Scheduled Appointments?? Future Appointments ?*[facility]??Preop ?[address]??[place],??[place],??[address] ?Phone:??--?Fax:??-- ?Appt. Date:??03/06/2023?1:15 PM ?Scheduled Provider:??Vicente Vaughan MD ?Med??Stay??So??7 ?Phone:??--?Fax:??-- ?Appt. Date:??03/14/2023?9:15 AM ?Scheduled Provider:??[facility]Inpt??OR ?Phone:??--?Fax:??-- ?Appt. Date:??03/30/2023?12:30 PM ?Scheduled Provider:??Aly SHULTZ, Holland Graff [address]??[place],??[place],??[address] ?Phone:??[phone]?Fax:??-- ?Appt. Date:??04/19/2023?11:30 AM ?Scheduled Provider:??[address] Follow-Up Instructions ?? With: Address: When: Vidya Rucker 02/21/2024 1:45 PM Diagnosis Medications: Please continue your medications until treatment is completed or stopped by your provider. Discuss any questions related to medications with your provider. Medications to Continue with No Changes These medications were not printed or sent to your pharmacy Anastrozole (anastrozole 1 mg oral tablet) 1 tab(s) Oral Daily. Refills: 3. Next Dose: Atenolol (atenolol 50 mg oral tablet) 1 tab(s) Oral Daily in the morning. Next Dose: Calcium Carbonate (Caltrate 600 mg oral tablet) 2 tab(s) Oral Daily in the morning. Next Dose: Hydrochlorothiazide 25 Milligram Oral Daily in the morning. Next Dose: Rosuvastatin (Crestor 5 mg oral tablet) 1 tab(s) Oral Daily. Next Dose: Ursodiol (ursodiol 300 mg oral capsule) 2 capsules Oral Daily in the morning. Next Dose: Valsartan (valsartan 80 mg oral tablet) 1 tab(s) Oral Daily. Next Dose: Allergy Info:?? ChloraPrep One-Step; Keflex Medications Given This Visit Future Orders ?MM Digital Mammo Screening? Order Date:12/24/23?- Complete by?01/21/24 Vital Signs Height 170 cm Weight 83.7 kg BMI 28.96 kg/m2 Blood Pressure 159 mm Hg/74 mm Hg Temperature 98.3 DegF Pulse Rate 60 bpm Respiratory Rate 02 Sat Mode of Delivery 97 %/Room air You can now view a summary of your hospital visit from the comfort of your home through a free online portal called [employer]. [employer] is a website that allows you to securely view your medical information including discharge summary, medications and follow-up visits. ??You can alsosend a secure electronic message to your doctor???s office to request appointments, renew medications or just ask a question. You can enroll at [email or web address] or register during your next office visit. Disclaimer:?? The information provided is of a general nature and is intended to be used in conjunction with the recommendations and advice of your health care practitioner. ??Every effort has been made to ensure that the information provided is accurate and complete at the time it is provided to you however, as your needs change, or, as new ??information becomes available, different or additional instructions may be required. If you have questions, please consult with your primary care provider or pharmacist, as appropriate. ??This information is not intended to serve as substitution for assessment and evaluation by a qualified health care provider. If you do not have a primary care provider, you may find a [facility] provider by calling [facility] [employer] at [phone]. For information about the plan of care including goals and instructions for your diagnosis, please see the patient education orders section of this document. Patient Education Materials?? The content of this educational material or handout may have been modified, supplemented, or adapted from its original content and format to support your individualized medical care. * Bettyt Treasure FERNANDEZ: PERFORM, SIGN, VERIFY Event Display: Patient Education/Instruction Authored Date: [id number] [facility] *Heme/Onc Adult Clinical Summary Name HELGA HAYDEN Age 72 Years 1950 PCP Terrance SHULTZ, Ciaran Camejo PCP Visit Date 02/15/2023 15:57:00 Additional Instructions: Scheduled Appointments?? Future Appointments ?*[facility]??Preop ?[address],??[place],??[address] ?Phone:??--?Fax:??-- ?Appt. Date:??03/06/2023?1:15 PM ?Scheduled Provider:??Vicente Vaughan MD ?Med??Stay??So??7 ?Phone:??--?Fax:??-- ?Appt. Date:??03/14/2023?9:15 AM ?Scheduled Provider:??[facility]Inpt??OR ?Phone:??--?Fax:??-- ?Appt. Date:??03/30/2023?12:30 PM ?Scheduled Provider:??Brothdebbie SHULTZ, Holland Graff ?[address],??[place],??[address] ?Phone:??[phone]?Fax:??-- ?Appt. Date:??04/19/2023?11:30 AM ?Scheduled Provider:??[address] Follow-Up Instructions ?? With: Address: When: Vidya Marcsocamilla Chaim 02/21/2024 1:45 PM Diagnosis Medications: Please continue your medications until treatment is completed or stopped by your provider. Discuss any questions related to medications with your provider. Medications to Continue with No Changes These medications were not printed or sent to your pharmacy Anastrozole (anastrozole 1 mg oral tablet) 1 tab(s) Oral Daily. Refills: 3. Next Dose: Atenolol (atenolol 50 mg oral tablet) 1 tab(s) Oral Daily in the morning. Next Dose: Calcium Carbonate (Caltrate 600 mg oral tablet) 2 tab(s) Oral Daily in the morning. Next Dose: Hydrochlorothiazide 25 Milligram Oral Daily in the morning. Next Dose: Rosuvastatin (Crestor 5 mg oral tablet) 1 tab(s) Oral Daily. Next Dose: Ursodiol (ursodiol 300 mg oral capsule) 2 capsules Oral Daily in the morning. Next Dose: Valsartan (valsartan 80 mg oral tablet) 1 tab(s) Oral Daily. Next Dose: Allergy Info:?? ChloraPrep One-Step; Keflex Medications Given This Visit Future Orders ?MM Digital Mammo Screening? Order Date:12/24/23?- Complete by?01/21/24 Vital Signs Height 170 cm Weight 83.7 kg BMI 28.96 kg/m2 Blood Pressure 159 mm Hg/74 mm Hg Temperature 98.3 DegF Pulse Rate 60 bpm Respiratory Rate 02 Sat Mode of Delivery 97 %/Room air You can now view a summary of your hospital visit from the comfort of your home through a free online portal called [employer]. [employer] is a website that allows you to securely view your medical information including discharge summary, medications and follow-up visits. ??You can alsosend a secure electronic message to your doctor???s office to request appointments, renew medications or just ask a question. You can enroll at [email or web address] or register during your next office visit. Disclaimer:?? The information provided is of a general nature and is intended to be used in conjunction with the recommendations and advice of your health care practitioner. ??Every effort has been made to ensure that the information provided is accurate and complete at the time it is provided to you however, as your needs change, or, as new ??information becomes available, different or additional instructions may be required. If you have questions, please consult with your primary care provider or pharmacist, as appropriate. ??This information is not intended to serve as substitution for assessment and evaluation by a qualified health care provider. If you do not have a primary care provider, you may find a [facility] provider by calling [facility] [employer] at [phone]. For information about the plan of care including goals and instructions for your diagnosis, please see the patient education orders section of this document. Patient Education Materials?? The content of this educational material or handout may have been modified, supplemented, or adapted from its original content and format to support your individualized medical care. Patient Care team information Care Team Personnel Name: Cortney Kapadia Position: [facility] Onco RN Member Role: Primary Care Nurse Name: Treasure Oseguera MA Position: [facility] Onco RN Member Role: Primary Care Nurse Name: Terrance SHULTZ, Ciaran Camejo Position: Reference Physician Member Role: PCP Address: Address: [address] [place] [address]- Name: Vidya Kang MD Position: [facility] Physician - Oncology Med Service: Hematology & Oncology Member Role: Admitting Physician Address: Address: [address] [place] [address] for Cancer [facility] [place] [address]- Care Team Related Persons Name: SALVADOR HAYDEN Address: [address] [address]
--- OUTSIDE RECORDS SUMMARY | 2023-12-22 10:05 | XMS_ITS | Continuity of Care Document ---
Author Organization [facility] Care Address [address] [place] [address]- Care Team Providers Care Asphalt Surface Heater Operator Name Role Phone Terrance SHULTZ, Ciaran Camejo Primary Care Physician Encounter [facility] [place] Date(s): 08/15/23 - 09/14/23 [facility] [address] [place] [id number] Allergies, Adverse Reactions, Alerts Substance Reaction Severity Status Keflex GI upset Active ChloraPrep One-Step 1 Rash Active 1Patient describes red hivey like rash over surgical site and under arm to mid chest only, itchy Medications anastrozole 1 mg oral tablet 1 tablet, By Mouth, Daily, # 90 tablet, 3 Refills, 12/22/22 12:32:00 EDT, [facility]/pharmacy #[id number], 170, cm, 08/23/22 10:55:00 EST, Height, [...] I, pT1 ap N0 M0, ER positive, [place] positive, HER-2/antonino negative Confirmed 2019 Active Social [...] Reference Physician Member Role: PCP Address: Address: [address] [place] [address]- Care Team Related Persons Name: JSOLYN HAYDENDRICK Address: home [address] [place] [id number]
--- OUTSIDE RECORDS SUMMARY | 2023-12-22 10:05 | XMS_ITS | Continuity of Care Document ---
Author Organization [facility] Address [address], [address] [place] [address]- Care Team Providers Care Deck Officer Name Role Phone Terrance SHULTZ, Ciaran Camejo Primary Care Physician Encounter [facility] [place] Date(s): 08/17/23 - 09/16/23 [facility] [employer] [facility] [address], [address] [place] [address]- Attending Physician: Ame Chris Admitting Physician: Ame Chris Referring Physician: AdmtrAme Allergies, Adverse Reactions, Alerts Substance Reaction Severity Status Keflex GI upset Active ChloraPrep One-Step 1 Rash Active 1Patient describes red hivey like rash over surgical site and under arm to mid chest only, itchy Medications anastrozole 1 mg oral tablet 1 tablet, By Mouth, Daily, # 90 tablet, 3 Refills, 12/22/22 12:32:00 EDT, [facility]/pharmacy #[id number], 170, cm, 08/23/22 10:55:00 EST, Height, [...] I, pT1 ap N0 M0, ER positive, SC positive, HER-2/antonino negative Confirmed 2019 Active Social [...] Reference Physician Member Role: PCP Address: Address: [address] [place] [address]- Care Team Related Persons Name: SALVADOR HAYDEN Address: home [address] [place] [address]
--- OUTSIDE RECORDS SUMMARY | 2023-12-22 10:05 | XMS_ITS | Continuity of Care Document ---
Author Organization [facility] ter Address [address] [place] [address]- Care Team Providers Care Bag Adjuster Name Role Phone Ciaran Carlos MD Primary Care Physician [place] [facility] [place] - 04/13/[address] [id number] Attending Physician: Admtr, Ame Admitting Physician: Admtr, Ar8 Referring Physician: Admtr, Ar8 Allergies, Adverse Reactions, Alerts Substance Reaction Severity Status Keflex GI upset Active ChloraPrep One-Step 1 Rash Active 1Patient describes red hivey like rash over surgical site and under arm to mid chest only, itchy Medications anastrozole 1 mg oral tablet 1 tablet, By Mouth, Daily, # 90 tablet, 3 Refills, 12/22/22 12:32:00 EDT, [facility]/pharmacy #[id number], 170, cm, 08/23/22 10:55:00 EST, [...] Reference Physician Member Role: PCP Address: Address: [address] [place] [address]- Care Team Related Persons Name: JOSLYN HAYDENDRICK Address: home [address] [place] [address]
--- OUTSIDE RECORDS SUMMARY | 2023-12-22 10:05 | XMS_ITS | Continuity of Care Document ---
Author Organization [facility] Address [address] [place] [address]- Care Team Providers Care Grid Caster Name Role Phone Ciaran Carlos MD Primary Care Physician Encounter [facility] [place] Date(s): 10/03/23 - 11/02/23 [facility] [address] [place] [address]- Allergies, Adverse Reactions, Alerts Substance Reaction Severity Status Keflex GI upset Active ChloraPrep One-Step 1 Rash Active 1Patient describes red hivey like rash over surgical site and under arm to mid chest only, itchy Medications anastrozole 1 mg oral tablet 1 tablet, By Mouth, Daily, # 90 tablet, 3 Refills, 12/22/22 12:32:00 EDT, [facility]/pharmacy #[id number], 170, cm, 08/23/22 10:55:00 EST, [...] I, pT1 ap N0 M0, ER positive, [place] positive, HER-2/antonino negative Confirmed 2019 Active Social [...] Reference Physician Member Role: PCP Address: Address: [address] [place] [address]- Care Team Related Persons Name: CATRACHOSALVADOR Address: home [address] [place] [address]
--- OUTSIDE RECORDS SUMMARY | 2023-12-22 10:05 | XMS_ITS | Continuity of Care Document ---
Author Organization [facility] Address [address] [place] [address]- Care Team Providers Care General Manager Road Production Name Role Phone Ciaran Carlos MD Primary Care Physician Encounter [facility] Date(s): 08/17/22 - 09/16/22 [facility] [address] [place], [place] [address] Attending Physician: Dot, Ame Admitting Physician: AdmtrAme Referring Physician: Admtr, ArDede Allergies, Adverse Reactions, Alerts Substance Reaction Severity Status Keflex GI upset Active ChloraPrep One-Step 1 Rash Active 1Patient describes red hivey like rash over surgical site and under arm to mid chest only, itchy Medications anastrozole 1 mg oral tablet 1 tablet, By Mouth, Daily, # 90 tablet, 3 Refills, [id number], 170, cm, 10/16/21 14:56:00 EST,Height, 80.7, kg, [...] Reference Physician Member Role: PCP Address: Address: [address] [place] [address]- Care Team Related Persons Name: SALVADOR HAYDEN Address: [address] [address]
--- OUTSIDE RECORDS SUMMARY | 2023-12-22 10:05 | XMS_ITS | Continuity of Care Document ---
Author Organization [facility] Address [address] [place] [address]- Care Team Providers Care Cut Off Saw Grader Name Role Phone Terrance SHULTZ, Ciaran Camejo Primary Care Physician Encounter [facility] [place] Date(s): 08/23/22 - 09/22/22 [facility] [address] [place] [address] Allergies, Adverse Reactions, Alerts Substance Reaction Severity Status Keflex GI upset Active ChloraPrep One-Step 1 Rash Active 1Patient describes red hivey like rash over surgical site and under arm to mid chest only, itchy Medications anastrozole 1 mg oral tablet 1 tablet, By Mouth, Daily, # 90 tablet, 3 Refills, [id number], 170, cm, 10/16/21 14:56:00 EST,Height, 80.7, kg, [...] Reference Physician Member Role: PCP Address: Address: [address] [place] [address]- Care Team Related Persons Name: JOLSYN HAYDENDRICK Address: home [address] [place] [address]
[2023-12-22 10:06] VITALS: BMI 28.8
--- NOTE | 2023-12-22 10:06 | A.OFFVIS_ITS ---
Vital Signs 12/22/23 10:06 Height 5 ft 7 in Weight 184 lb BMI 28.8 Intake Visit Reasons: OV - Bilateral Knee Pain - Req Injection Intake Note: This is a 71 year old woman with moderately severe left knee PF OA & meniscus tears. She was last injected in both knees on 06/13/22. Patient reports that she twisted the left knee about 2 months ago and the pain has been significantly worsened since then. She is interested in repeating a cortisone injection. Allergies chlorhexidine [CHLORAPREP] Allergy (Mild, Verified 12/22/23 10:09) RASH cephalexin [Keflex] Allergy (Unknown, Verified 12/22/23 10:09) GI upset HPI HPI OV - Bilateral Knee Pain - Req Injection: Details: This is a 71 year old woman with moderately severe left knee PF OA & meniscus tears. She was last injected in both knees on 06/13/22. Patient reports that she twisted the left knee about 2 months ago and the pain has been significantly worsened since then. She is interested in repeating a cortisone injection. [facility] Medical History Panic disorder Hyperlipidemia Hypertension Primary osteoarthritis of left knee Primary osteoarthritis of right knee Surgical History History of colonoscopy (~02/03/23) History of colonoscopy History of lumpectomy of left breast History of cataract surgery History of liver biopsy History of foot surgery History of hysterectomy Family History Father Lung cancer Smoker Mother Osteoarthritis Bone cancer Maternal Aunt Osteoarthritis Social History Housing: House Alcohol intake: current Alcohol intake frequency: 0-2 drinks per day Patient Tobacco Use Status: Never used Tobacco e-Cigarette/Vaping Use: Never Used Second Hand Smoke Exposure: No service: No Current occupational status: employed 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 Office Procedures Joint Injection/Drain Joint Injection/Drain Details: Injected 1 mL of Decadron and 3 mL 1% lidocaine and 3 mL of 0.25% Marcaine. Site was prepped using aseptic technique. Patient tolerated the procedure well. Primary Site: right knee Secondary Site: left knee Approach Used: anterolateral Coding - Large joint - Glenohumeral/Tronchanteric Bursa/Intraarticular Procedure code (CPT) selection complete Results Reviewed Results Reviewed: I personally reviewed relevant radiographs. Tricompartmental OA R> L Assessment & Plan Assessment & Plan (1) Osteoarthritis of knees, bilateral: Code(s): M17.0 - Bilateral primary osteoarthritis of knee Category: Medical Plan I aspirated and injected the left knee today, I also injected the right knee PT ordered Follow up 3 months Orders: Orders PT Evaluation and Treatment Today M17.0 - Bilateral primary osteoarthritis of knee Coding Level of Care Code Est Pt Level 4 (47423) Diagnoses Osteoarthritis of knees, bilateral M17.0 CPT Codes Coding - Large joint: 81016 - Large joint ([id number]) Coding - Joint 7: 68177 - Glenohumeral/Tronchanteric Bursa/Intraarticular ([id number])
--- OUTSIDE RECORDS SUMMARY | 2023-12-22 10:06 | XMS_ITS | Continuity of Care Document ---
Author Organization [facility] Address [address] [place] [address]- Care Team Providers Care Services Executive Name Role Phone Ciaran Carlos MD Primary Care Physician [place] [facility] [place]23 - 10/15/23 [facility] [address] [place] [address] Discharge Disposition: A-D/C Home Attending Physician: Vidya [...] I, pT1 ap N0 M0, ER positive, [place] positive, HER-2/antonino negative Confirmed 2018 Active Procedures Procedure Date Related Diagnosis Body Site Status Excision of left breast lump 2019 Completed Vital Signs Most recent to oldest [Reference Range]: 1 Height 170 cm (08/15/23 1:04 PM) Weight 84.7 kg (08/15/23 1:04 PM) Oxygen Saturation [94-100 %] 94 % (08/15/23 1:04 PM) Pulse Rate [55-90 bpm] 70 bpm (08/15/23 1:04 PM) Body Mass Index [18.5-24.99 kg/m2] 29.31 kg/m2 *H* (08/15/23 1:04 PM) Blood Pressure [90-138/55-84 mm Hg] 149/ 73mm Hg *H* (08/15/23 1:04 PM) Temperature [96.8-100.4 DegF] 97.6 DegF (08/15/23 1:04 PM) Mode of Delivery (Oxygen) Room air (08/15/23 1:04 PM) Blood pressure sites Arm, right (08/15/23 1:04 PM) Temperature Route Oral (08/15/23 1:04 PM) Dry Weight 84.7 kg (08/15/23 1:04 PM) Weight Obtained Via Standing scale (08/15/23 1:04 PM) Dry Weight Obtained Via Standing scale (08/15/23 1:04 PM) Social History Social History Type Response Smoking Status Never (less than 100 in lifetime) entered on: 12/10/18 Sex Patient Care team information Care Team Personnel Name: Cortney Kapadia Position: [facility] Onco RN Member Role: Primary Care Nurse Name: Treasure Oseguera [place] Position: [facility] Onco RN Member Role: Primary Care Nurse Name: Terrance SHULTZ, Ciaran Camejo Position: Reference Physician Member Role: PCP Address: Address: [address] [place] [address]- Name: Vidya Kang MD Position: [facility] Physician - Oncology Med Service: Hematology & Oncology Member Role: Admitting Physician Address: Address: [address] [place] [address] [facility] [place] [address]- Care Team Related Persons Name: SALVADOR HAYDEN Address: home [address] [place] [address]
--- OUTSIDE RECORDS SUMMARY | 2023-12-22 10:06 | XMS_ITS | Continuity of Care Document ---
Author Organization [facility] Address [address] [place] [address]- Care Team Providers Care Cad Detailer Name Role Phone Ciaran Carlos MD Primary Care Physician [place] [facility] [place] 03/06/23 - 04/05/23 [facility] [address] [place], [place] [address] Attending Physician: Admgarrett, Ame Admitting Physician: Admtr, ArDede Referring Physician: Admtr, Ar8 Allergies, Adverse Reactions, Alerts Substance Reaction Severity Status Keflex GI upset Active ChloraPrep One-Step 1 Rash Active 1Patient describes red hivey like rash over surgical site and under arm to mid chest only, itchy Medications anastrozole 1 mg oral tablet 1 tablet, By Mouth, Daily, # 90 tablet, 3 Refills, 12/22/22 12:32:00 EDT, [facility]/pharmacy #[id number], 170, cm, 08/23/22 10:55:00 [...] Reference Physician Member Role: PCP Address: Address: [address] [place] [address]- Care Team Related Persons Name: JOSLYN HAYDENDRICK Address: home [address] [place] [address]
== END 2023-12-22 10:53 | disposition home or self-care (01) ==
LOC: HO.HOS 10:02
PROVIDERS: PCP Internal Medicine; Visit Provider Orthopaedic Surgery
DX: M17.0 Bilateral primary osteoarthritis of knee (principal)
CPT/HCPCS: 20610; 99214

== ENCOUNTER → 2023-12-22 10:02 | Outpatient (BNVA) | payer MEDICARE, SELFPAY | PROVIDERS: PCP Internal Medicine; Visit Provider Orthopaedic Surgery | DX: M17.0 Bilateral primary osteoarthritis of knee (principal) | CPT/HCPCS: 20610; 99212; J0665; J1100 ==

== ENCOUNTER 2024-02-13 10:10 | Outpatient (AMB) | payer MEDICARE, SELFPAY ==
[2024-02-13 10:13] VITALS: BP 120/70; PULSE 58; BMI 28.7
--- NOTE | 2024-02-13 10:13 | MHC.OFFVIS ---
Vital Signs 02/13/24 10:13 Height 5 ft 7 in Weight 182 lb 15.739 oz BMI 28.7 BP 120/70 Blood Pressure Location Lt brachial Position Sitting Pulse 58 Intake Visit Reasons: 1 year follow up Intake Note: 1 year follow-up with ekg c/o increased bp but when doing activity in can be low Order Entry Representative Required: No Allergies chlorhexidine [CHLORAPREP] Allergy (Mild, Verified 12/22/23 10:09) RASH cephalexin [Keflex] Allergy (Unknown, Verified 12/22/23 10:09) GI upset Medication List - Last Reconciled 02/13/24 by Norman Farias MD anastrozole 1 mg PO DAILY atenolol 50 mg PO DAILY cholecalciferol (vitamin D3) 50 mcg PO DAILY epinephrine (EpiPen 2-Octavio) 0.3 mg (0.3 mL) IM Q4H PRN hydrochlorothiazide 25 mg PO DAILY PRN lorazepam 1 mg PO BEDTIME PRN naproxen 500 mg PO DAILY omega-3 fatty acids PO rosuvastatin (Crestor) 5 mg PO DAILY 90 days ursodiol 300 mg PO BID valsartan 80 mg PO DAILY 90 days HPI Comments Details: Sada comes for follow-up. She did not undergo knee surgery last year due to scheduling conflicts. She is planning to undergo the surgery this fall. She has very much limitation related to the same. She complains of bilateral knee pain with walking. She also said when she is upright for long period time she would get lightheaded. She has not had any syncopal episodes. Generally a blood pressure at home are in the 130 systolic range. She denies any prolonged palpitations, irregular heartbeat. No exertional chest pain. No worsening shortness of breath. Takes all her medications regularly. [facility] Medical History Panic disorder Hyperlipidemia Hypertension Primary osteoarthritis of left knee Primary osteoarthritis of right knee Surgical History History of colonoscopy (~02/03/23) History of colonoscopy History of lumpectomy of left breast History of cataract surgery History of liver biopsy History of foot surgery History of hysterectomy Family History Father Lung cancer Smoker Mother Osteoarthritis Bone cancer Maternal Aunt Osteoarthritis Social History Housing: House Alcohol intake: current Alcohol intake frequency: 0-2 drinks per day Patient Tobacco Use Status: Never used Tobacco e-Cigarette/Vaping Use: Never Used Second Hand Smoke Exposure: No service: No Current occupational status: employed 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 Cognitive needs: No Hearing needs: No Vision needs: Yes Review of Systems Const Denies chills, Denies fatigue, Denies fever(s), Denies frequent falls, Denies weakness, Denies weight gain and Denies weight loss ENT Denies dizziness Card Denies chest pain, Denies leg edema, Denies lightheadedness, Denies palpitations, Denies dyspnea, Denies dyspnea on exertion, Denies orthopnea and Denies other (loss of consciousness) Resp Denies cough, Denies dyspnea and Denies dyspnea on exertion GI Denies hematochezia and Denies change in stool character Musc Denies abnormal gait, Denies muscle weakness, Denies numbness, Denies radiating pain into limb and Denies tingling Neuro Denies Abnormal speech present, Denies abnormal gait, Denies dizziness, Denies frequent falls, Denies numbness, Denies tingling and Denies weakness Endo Denies fatigue and Denies palpitations Physical Exam Vital Signs: Last Vital Signs Pulse 58 02/13/24 10:13 BP 120/70 02/13/24 10:13 BMI result Body Mass Index 28.7 Const General: cooperative, comfortable, no acute distress, alert, awake and well groomed Nutritional Appearance: well nourished and overweight Orientation/consciousness: patient oriented x3 Limitations: no limitations HEENT Head: Yes normocephalic and Yes atraumatic Neck Neck: Yes trachea midline, Yes supple and Yes no JVD Chest Chest palpation & inspection: normal inspection of the chest Resp Effort & Inspection: normal respiratory effort Auscultation: clear to auscultation bilaterally Cardio Jugular venous distension: no JVD Palpation: normal PMI Rate: regular rate Rhythm: regular rhythm Heart sounds: S1 normal heart sound present, S2 normal heart sound present, no click, no gallops, no murmurs and no rubs GI Auscultation: normal bowel sounds Skin General skin exam: no rashes or lesions noted Neuro General: patient oriented x3 and no focal motor deficits Speech: No Abnormal speech present Extrem General: Yes no clubbing, cyanosis or edema Psych Appearance: grossly normal Office Procedures EKG Details: EKG shows sinus bradycardia with sinus arrhythmias 58 beats per minute 56385-[id number], Complete Assessment & Plan Assessment & Plan (1) Hypertension: Code(s): I10 - Essential (primary) hypertension Category: Medical Plan: Longstanding hypertension which is currently well optimized on current therapy. Generally her blood pressure are remaining well controlled with systolic blood pressure in the 130 range. Target goal blood pressure less than 130/84. Low-salt diet was discussed. Advised to maintain adequate hydration. Continue current therapy. (2) Preoperative cardiovascular examination: Code(s): Z01.810 - Encounter for preprocedural cardiovascular examination Plan: Preoperative cardiovascular risk stratification in this elderly woman with myocardial perfusion imaging last year within normal limits with no new concerning symptoms. EKG at rest appears to be adequate. She is currently optimized to undergo knee surgery with low to intermediate risk for perioperative cardiovascular morbidity mortality. Continue all antihypertensive therapy in perioperative time. (3) Orthostatic lightheadedness: Code(s): R42 - Dizziness and giddiness Plan: Orthostatic lightheadedness most likely related to aging. She has had no syncopal episodes. Mechanism orthostatic lightheadedness was discussed advised to increase hydration. Orthostatic precautions were discussed. Will follow up in the clinic in 1 year's time on her request. Thank you for allowing me to partake in the care Coding Level of Care Code Est Pt Level 4 (53714) Diagnoses Hypertension I10 Preoperative cardiovascular examination Z01.810 Orthostatic lightheadedness R42 CPT Codes EKG - CPT: 33933-[id number], Complete ([id number])
== END 2024-02-13 10:41 | disposition home or self-care (01) ==
PROVIDERS: PCP Internal Medicine; Visit Provider Internal Medicine Cardiovascular Disease
DX: I10 Essential (primary) hypertension (principal); Z01.810 Encounter for preprocedural cardiovascular examination; R42 Dizziness and giddiness
CPT/HCPCS: 93010; 99214

== ENCOUNTER → 2024-02-13 10:10 | Outpatient (BNVA) | payer MEDICARE, SELFPAY | PROVIDERS: PCP Internal Medicine; Visit Provider Internal Medicine Cardiovascular Disease | DX: Z01.810 Encounter for preprocedural cardiovascular examination (principal); I10 Essential (primary) hypertension; R42 Dizziness and giddiness | CPT/HCPCS: 93005; 99212 ==

== ENCOUNTER 2024-03-11 10:27 | Outpatient (REF) | payer MEDICARE, SELFPAY ==
[2024-03-11 10:47] LABS: MANUAL DIFF FLAG NO
[2024-03-11 11:44] LABS: Estimated Average Glucose 117 mg/dL; Hemoglobin A1c % 5.7 % (<6.0)
[2024-03-11 11:46] LABS: Basophils Percent Auto 0.5 % (0-2); Eosinophils Absolute Auto 0.1 X10*3/uL (0.0-0.4); Eosinophils Percent Auto 2.7 % (0-4); Hematocrit 43.3 % (37.0-47.0); Hemoglobin 14.9 g/dl (12.0-16.0); INTERNATIONAL NORM RATIO 1.2 (0.9-1.1); Imm Gran Abs Auto 0.01 X10*3/uL (0.00-0.03); Imm Gran Pct Auto 0.2 % (0.0-0.4); Lymphocytes Absolute Auto 1.5 X10*3/uL (1.2-4.9); Lymphocytes Percent Auto 34.9 % (20-40); Mean Corpuscular HGB Conc 34.4 g/dl (31.0-35.0); Mean Corpuscular Volume 95.8 fL (80.0-98.0); Mean Platelet Volume 11.3 fL (9.4-12.3); Monocytes Absolute Auto 0.3 X10*3/uL (0.1-1.2); Monocytes Percent Auto 6.8 % (2-11); Neutrophils Absolute Auto 2.4 x10*3/uL (2.0-8.3); Neutrophils Percent Auto 54.9 % (45-73); Platelet Count 124 X10*3/uL (160-400); Red Blood Count 4.52 X10*6/uL (4.20-5.50); Red Cell Distribution Width 12.4 % (11.0-16.0); White Blood Count 4.4 X10*3/uL (4.8-10.8)
[2024-03-11 12:08] LABS: Alanine Aminotransferase 38 U/L (0-31); Albumin Level 3.9 g/dL (3.5-5.0); Alkaline Phosphatase 90 U/L (39-117); Anion Gap 11 (12-20); Aspartate Amino Transferase 44 U/L (5-31); Bilirubin Direct 0.2 mg/dL (0.0-0.5); Bilirubin Total 0.5 mg/dL (0.0-1.0); Blood Urea Nitrogen 12 mg/dL (9-16); Calcium 9.6 mg/dL (8.4-10.2); Carbon Dioxide 26 mmol/L (22-29); Chloride 109 mmol/L (96-108); Estimated Glomerular Filt Rate 57; Glucose Random 118 mg/dL (60-115); Iron 73 mcg/dL (30-160); Percent Iron Saturation 22 % (15-50); Potassium 4.1 mmol/L (3.3-5.1); Sodium 142 mmol/L (135-145); Total Iron Binding Capacity 326 mcg/dL (228-428); Total Protein 7.1 g/dL (6.5-8.0); Unsaturated Iron Binding 253 ug/dL
[2024-03-11 12:21] LABS: Ferritin 162 ng/mL (10-250)
[2024-03-19 16:33] LABS: FIB-ALT 33 U/L (6-29); FIB-Alpha-2-Macroglobulin 431 mg/dL (106-279); FIB-Apolipoprotein A1 137 mg/dL (101-198); FIB-GGT 59 U/L (3-65); FIB-Haptoglobin 46 mg/dL (43-212); FIB-Total Bilirubin 0.5 mg/dL (0.2-1.2); Liver Fibrosis Score 0.83; Liver Fibrosis Stage F4; Nec Inflam Act Grade A1; Nec Inflam Act Score 0.31
== END 2024-03-11 10:28 | disposition home or self-care (01) ==
LOC: HO.LAB 10:27
PROVIDERS: PCP Internal Medicine; Visit Provider Internal Medicine
DX: K76.0 Fatty (change of) liver, not elsewhere classified (principal); K74.00 Hepatic fibrosis, unspecified; E83.19 Other disorders of iron metabolism; R79.89 Other specified abnormal findings of blood chemistry
CPT/HCPCS: 36415; 80048; 80076; 81596; 82105; 82728; 83036; 83540; 85025; 85610

== ENCOUNTER 2024-03-13 08:47 | Outpatient (REF) | payer MEDICARE, SELFPAY ==
--- NOTE | ~2024-03-13 | US_ITS ---
EXAMINATION: US COMPLETE ABDOMEN WITH LIVER ELASTOGRAPHY CLINICAL INFORMATION: Fatty liver, liver fibrosis and elevated LFTs. COMPARISON: Ultrasound abdomen with elastography 11/24/2022. TECHNIQUE: Real-time imaging of the abdominal viscera. Noninvasive ultrasound liver fibrosis assessment is performed using EPIQ ELITE point quantification shear wave elastography (2D-SWE) with a C5-2 MHz transducer. Multiple elastography samples are obtained. FINDINGS: PANCREAS: The visualized pancreatic head and body are normal in appearance. The remainder of the pancreas is obscured from visualization by the overlying bowel gas. ABDOMINAL AORTA: The proximal, middle, and distal aortic segments are normal in caliber. INFERIOR VENA CAVA: Visualized portions are normal. LIVER: The liver is normal in size with a markedly heterogeneous slightly increased echotexture and a nodular border. No focal mass or bile duct dilatation is seen. The right lobe measures length. The left lobe measures 14.7 cm in length. Portal flow is towards the liver (hepatopetal). Shear wave liver elastography median stiffness is 1.87 m/s (previously 1.5 m/s) (reference: normal median stiffness is 1.3 m/s or less). IQR/median stiffness to assess sampling precision is 0.26 (reference: good quality data set is IQR/median stiffness of 0.15 or less). GALLBLADDER: A single large gallbladder polyp is present measuring 6 x 5 x 7 mm. The gallbladder is physiologically distended without evidence of stones, sludge, wall thickening or pericholecystic fluid. COMMON BILE DUCT: Normal in caliber measuring 0.3 cm in diameter. RIGHT KIDNEY: No hydronephrosis. No renal calculi . A benign upper pole 5.1 cm Bosniak class I renal cyst is noted which requires no additional imaging or follow up. No solid renal masses are seen.. The kidney measures 13.0 cm in maximum dimension. LEFT KIDNEY: No hydronephrosis. No renal calculi or focal parenchymal lesions. The kidney measures 12.1 cm in maximum dimension. SPLEEN: Normal. The spleen measures 10.5 cm in maximum dimension. FREE FLUID: None. US/US abdomen comp w elastography IMPRESSION: 1. Cirrhotic-appearing liver. Gallbladder polyp. Compared to the prior study, liver size appears to have decreased. 2. Liver elastography: Although measurements are suggestive of compensated advanced chronic liver disease, there is statistical variability of the sampling which decreases accuracy. REFERENCE: Society of Radiologists in Ultrasound Liver Stiffness Thresholds (2020): LIVER STIFFNESS THRESHOLDS: *Liver Stiffness equal or less than 1.3 m/s: High probability of being normal. *Liver Stiffness less than 1.7 m/s: In the absence of other known clinical signs, rules out compensated advanced chronic liver disease. *Liver Stiffness 1.7-2.1 m/s: Suggestive of compensated advanced chronic liver disease but need further test for confirmation. *Liver Stiffness over 2.1 m/s: Rules in compensated advanced chronic liver disease. *Liver Stiffness over 2.4 m/s: Suggestive of clinically significant portal hypertension. QUALITY OF DATA SET: *IQR/Median value equal or less than 0.15 implies a quality data set. *IQR/Median value over 0.15 implies a poor quality data set. SIGNIFICANT CHANGE FROM PRIOR EXAM: Significant change if liver stiffness measurement is 10% or greater from prior exam. OTHER CONSIDERATIONS: The stage of liver fibrosis may be overestimated in the setting of acute hepatitis, liver inflammation, elevated liver function tests, hepatic vascular congestion, obstructive cholestasis, non-fasting state, and infiltrative diseases such as amyloidosis and lymphoma. In some patients with NAFLD, the liver stiffness thresholds for compensated advanced chronic liver disease may be lower. In causes other than viral hepatitis and NAFLD, liver stiffness thresholds are not well established.
== END 2024-03-13 08:48 | disposition home or self-care (01) ==
LOC: HO.US 08:47
PROVIDERS: PCP Internal Medicine; Visit Provider Internal Medicine
DX: K76.0 Fatty (change of) liver, not elsewhere classified (principal); K74.00 Hepatic fibrosis, unspecified; R79.89 Other specified abnormal findings of blood chemistry; E83.19 Other disorders of iron metabolism
CPT/HCPCS: 76700; 76981

== ENCOUNTER 2024-05-10 10:07 | Day surgery (SDC) | payer MEDICARE, SELFPAY ==
[2024-05-08 14:54] VITALS: BMI 28.9
--- NOTE | 2024-05-09 10:10 | P.CONAN_ITS ---
Documented by User: Clementine Cooper NP 05/09/24 10:12 HPI - Anesthesia Eval Consult details Narrative: 73yo F for Upper Endoscopy [place]s [facility] [place] [facility] [place] for HTN. Stable at 01/2024 office visit and optimized for knee surgery. [facility] Active Problems Active Problems: All Active Problems Osteoarthritis of knees, bilateral (Acute) Bradycardia (Acute) Dyspnea on exertion (Acute) Edema of left lower extremity (Acute) Degenerative tear of medial meniscus of left knee (Acute) Degenerative tear of lateral meniscus of left knee (Acute) Internal derangement of left knee (Acute) Localized osteoarthritis of left knee (Acute) Abdominal pain (Acute) Herpes zoster (Acute) Adult general medical exam (Acute) Screening for diabetes mellitus (Acute) Screening for colon cancer (Acute) Hypertension (Acute) Hyperlipidemia (Acute) Panic disorder (Acute) Primary osteoarthritis of right knee (Acute) Past Medical History Medical History Hemochromatosis Thrombocytopenia Fatty liver Breast cancer Endometrial carcinoma Panic disorder Hyperlipidemia Hypertension Primary osteoarthritis of left knee Primary osteoarthritis of right knee Family History Family History Father Lung cancer Smoker Mother Osteoarthritis Bone cancer Maternal Aunt Osteoarthritis Family history of problems with anesthesia: No Surgical History Surgical History History of colonoscopy (~02/03/23) History of lumpectomy of left breast History of cataract surgery History of liver biopsy History of foot surgery History of hysterectomy History of Problems with Anesthesia: No Social History Social History Housing: House Alcohol intake: current Alcohol intake frequency: 0-2 drinks per day Patient Tobacco Use Status: Never used Tobacco e-Cigarette/Vaping Use: Never Used Second Hand Smoke Exposure: No service: No Current occupational status: employed 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 Cognitive needs: No Hearing needs: No Vision needs: Yes Meds Allergies Allergy/AdvReac Type Severity Reaction Status Date / Time chlorhexidine [CHLORAPREP] Allergy Mild RASH Verified 12/22/23 10:09 cephalexin [Keflex] Allergy Unknown GI upset Verified 12/22/23 10:09 Home Medications ?Medication ?Instructions ?Recorded ?Confirmed ?Last Taken ?Type anastrozole 1 mg tablet 1 mg PO DAILY 07/21/20 05/10/24 05/09/24 History naproxen 500 mg tablet 500 mg PO DAILY 07/21/20 05/10/24 04/30/24 History ursodiol 300 mg capsule 300 mg PO BID 07/21/20 05/10/24 05/09/24 History cholecalciferol (vitamin D3) 50 50 mcg PO DAILY 12/26/22 05/10/24 05/09/24 History mcg (2,000 unit) capsule Exam Height,Weight and Vital Signs: Height 5 ft 6 in Weight 81.193 kg Pertinent Lab Results Pertinent Lab Results: Laboratory Tests 03/11/24 10:45 WBC 4.4 L Hgb 14.9 Hct 43.3 Plt Count 124 L Narrative Narrative: EKG 01/2024 sinus bradycardia with sinus arrhythmias 58 beats per minute Assessment and Plan Assessment Anesthesia Assessment: Chart Reviewed Final Anesthetic Review Family History of Problems with Anesthesia: No History of Problems with Anesthesia: No Documented by User: Dania Linares MD 05/10/24 11:25 [facility] Active Problems Active Problems: All Active Problems Osteoarthritis of knees, bilateral (Acute) Bradycardia (Acute) Dyspnea on exertion (Acute) Edema of left lower extremity (Acute) Degenerative tear of medial meniscus of left knee (Acute) Degenerative tear of lateral meniscus of left knee (Acute) Internal derangement of left knee (Acute) Localized osteoarthritis of left knee (Acute) Abdominal pain (Acute) Herpes zoster (Acute) Adult general medical exam (Acute) Screening for diabetes mellitus (Acute) Screening for colon cancer (Acute) Hypertension (Acute) Hyperlipidemia (Acute) Panic disorder (Acute) Primary osteoarthritis of right knee (Acute) Liver cirrhosis Hemochromatosis - September 2023. Last phlebotomy Past Medical History Medical History Hemochromatosis Thrombocytopenia Fatty liver Breast cancer Endometrial carcinoma Panic disorder Hyperlipidemia Hypertension Primary osteoarthritis of left knee Primary osteoarthritis of right knee Family History Family History Father Lung cancer Smoker Mother Osteoarthritis Bone cancer Maternal Aunt Osteoarthritis Family history of problems with anesthesia: No Surgical History Surgical History History of colonoscopy (~02/03/23) History of lumpectomy of left breast History of cataract surgery History of liver biopsy History of foot surgery History of hysterectomy History of Problems with Anesthesia: No Social History Social History Housing: House Alcohol intake: current Alcohol intake frequency: 0-2 drinks per day Patient Tobacco Use Status: Never used Tobacco e-Cigarette/Vaping Use: Never Used Second Hand Smoke Exposure: No service: No Current occupational status: employed 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 Cognitive needs: No Hearing needs: No Vision needs: Yes Meds Allergies Allergy/AdvReac Type Severity Reaction Status Date / Time chlorhexidine [CHLORAPREP] Allergy Mild RASH Verified 12/22/23 10:09 cephalexin [Keflex] Allergy Unknown GI upset Verified 12/22/23 10:09 Home Medications ?Medication ?Instructions ?Recorded ?Confirmed ?Last Taken ?Type anastrozole 1 mg tablet 1 mg PO DAILY 07/21/20 05/10/24 05/09/24 History naproxen 500 mg tablet 500 mg PO DAILY 07/21/20 05/10/24 04/30/24 History ursodiol 300 mg capsule 300 mg PO BID 07/21/20 05/10/24 05/09/24 History cholecalciferol (vitamin D3) 50 50 mcg PO DAILY 12/26/22 05/10/24 05/09/24 History mcg (2,000 unit) capsule Exam Height,Weight and Vital Signs: Height 5 ft 6 in Weight 81.193 kg Vital Signs Temp Pulse Resp BP Pulse Ox O2 Del Method 05/10/24 10:42 97.1 F 66 16 160/84 H 97 Room Air Airway Mallampati Class: II TM Dist: >3cm Neck ROM: Limited (Limited extension, flexion, side to side movement) Loose/Missing/Broken Teeth: No ([place] top front, right top back. Denies broken, loose, missing teeth) Heart: Irregular. PACs on monitor Lungs: CTAB Assessment and Plan Assessment Anesthesia Assessment: Anesthesia Plan Discussed and Chart Reviewed Final Anesthetic Review Family History of Problems with Anesthesia: No History of Problems with Anesthesia: No NPO: Yes ASA Class: III Final Preanesthetic Review: No Changes in Pt Med Stat, Meds/Allgs Chart Reviewed, Consent Obtained/Reviewed and Anes Risks/Benef Reviewed Patient Risk: Intermediate Procedure Risk: Low Assessment/Block/Sedation in SS: Assess/Block/Sedation-SS Anesthetic Plan Anesthetic Plan: TIVA Disposition: Standard PACU
[2024-05-10 10:14] VITALS: BMI 28.7
[2024-05-10 10:42] VITALS: BP 160/84; PULSE 66; RESP 16; TEMP 36.2; O2SAT 97
[2024-05-10] MEDS: Lactated Ringers 1,000 ML 100 ML IVCONT (10:42)
[2024-05-10 11:46] VITALS: BP 129/71; PULSE 68; RESP 13; TEMP 36.1; O2SAT 99
--- NOTE | 2024-05-10 11:51 | PM.OP ---
Brief Operative Note Date of Service: 05/10/24 Pre-op diagnosis: Cirrhosis Post-op diagnosis: other (Hiatal hernia) Procedure: EGD Surgeon: Serafin Olsen MD Anesthesia: MAC Was an [employer] used for this Procedure?: No Estimated blood loss (mL): 0 Pathology: none sent Condition: stable Disposition: PACU
[2024-05-10 12:01] VITALS: BP 117/79; PULSE 67; RESP 16; TEMP 36.2; O2SAT 98
[2024-05-10 12:15] VITALS: BP 128/71; PULSE 68; RESP 16; TEMP 36.1; O2SAT 98
--- NOTE | 2024-05-10 12:19 | OP_ITS ---
DATE OF SERVICE: 05/10/2024 SURGEON: Serafin Olsen MD INDICATIONS: The patient presents for followup of underlying cirrhosis and need to rule out varices. Full consent has been obtained from her for this, including risks of bleeding and perforation. PREOPERATIVE DIAGNOSIS: Cirrhosis. POSTOPERATIVE DIAGNOSIS: PROCEDURE PERFORMED: Esophagogastroduodenoscopy. ESTIMATED BLOOD LOSS: COMPLICATIONS: ANESTHESIA: Monitored anesthesia care. ASSISTANTS: SPECIMENS: POSTOPERATIVE DIAGNOSES: Cirrhosis, small hiatal hernia. DESCRIPTION OF PROCEDURE: The patient was placed in the left lateral decubitus position. The Olympus video gastroscope was passed in the posterior oropharynx and upper esophagus under direct vision. The scope was passed slowly to the distal esophagus. The gastroesophageal junction appeared at 36 cm. With insufflation of air, there was no sign of any varices, esophagitis, nor Romo's esophagus. There was a small hiatal hernia. The scope was advanced to pylorus and the duodenum was cannulated to the descending portion. The duodenum including the bulb appeared normal without mass or ulceration. The scope was withdrawn back in the stomach. The gastric antrum and body appeared normal with good peristalsis. The scope was retroflexed, visualizing the proximal stomach carefully, which appeared normal, without any sign of mass or ulceration. There were no varices nor gastropathy noted. The scope was straightened and withdrawn back to the esophagus. Again, there was no evidence of varices. The esophageal mucosa appeared normal. The scope was withdrawn from the patient. She tolerated the procedure well and was returned to the recovery area in stable condition. IMPRESSION: Small hiatal hernia, otherwise normal upper endoscopy. No evidence of any portal hypertension such as varices or gastropathy. PLAN: The patient will continue her current medical regimen including Ursodiol for the fatty liver. She will be seen next year for a followup office visit. She will continue her periodic blood donations in regard to the previously elevated iron studies. This has been discussed with her . MD ANN Jonas/SABRINA / [id number] MTDD
== END 2024-05-10 12:38 | disposition home or self-care (01) ==
PROVIDERS: PCP Internal Medicine; Visit Provider Internal Medicine
PROC: 0DJ08ZZ Inspection of Upper Intestinal Tract, Via Natural or Artificial Opening Endoscopic (ICD-10-PCS; CPT 43235; principal; 2024-05-10 11:30)
DX: K74.60 Unspecified cirrhosis of liver (principal); K44.9 Diaphragmatic hernia without obstruction or gangrene; K76.0 Fatty (change of) liver, not elsewhere classified; K74.00 Hepatic fibrosis, unspecified; E83.19 Other disorders of iron metabolism; R79.89 Other specified abnormal findings of blood chemistry
CPT/HCPCS: 43235

== ENCOUNTER 2024-07-31 12:46 | Outpatient (AMB) | payer MEDICARE, SELFPAY ==
--- NOTE | 2024-07-31 12:50 | AM.OFFVISMDC ---
Intake Vital Signs 07/31/24 12:52 Height 5 ft 6 in Weight 175 lb 2 oz BMI 28.3 BP 130/70 Blood Pressure Location Lt brachial Position Sitting Pulse 60 Pulse Source Pulse Oximeter Pulse Oximetry (%) 96 Oxygen Delivery Method Room Air Intake Visit Reasons: SAWV [id number] - see comments Associate School Psychologist Required: No Accompanied by: Self / Same As Patient Allergies chlorhexidine [CHLORAPREP] Allergy (Mild, Verified 07/31/24 12:52) RASH cephalexin [Keflex] Allergy (Unknown, Verified 07/31/24 12:52) GI upset Medication List - Last Reconciled 08/02/24 by Ciaran Carlos MD atenolol 50 mg PO DAILY cholecalciferol (vitamin D3) 50 mcg PO DAILY epinephrine (EpiPen 2-Octavio) 0.3 mg (0.3 mL) IM Q4H PRN hydrochlorothiazide 25 mg PO DAILY PRN lorazepam 1 mg PO BEDTIME PRN naproxen 500 mg PO DAILY rosuvastatin (Crestor) 5 mg PO DAILY 90 days scopolamine base 1 patch transdermal Q3D PRN scopolamine base 1 patch transdermal Q3D PRN ursodiol 300 mg PO BID valsartan 80 mg PO DAILY 90 days HPI SAWV G0439 - see comments HPI Details hypertension and hyperlipidemia; stable; all forms given to patient [facility] Medical History Hemochromatosis Thrombocytopenia Fatty liver Breast cancer Endometrial carcinoma Panic disorder Hyperlipidemia Hypertension Primary osteoarthritis of left knee Primary osteoarthritis of right knee Surgical History History of colonoscopy (~02/03/23) History of lumpectomy of left breast History of cataract surgery History of liver biopsy History of foot surgery History of hysterectomy Family History Father Lung cancer Smoker Mother Osteoarthritis Bone cancer Maternal Aunt Osteoarthritis Social History Housing: House Alcohol intake: current Alcohol intake frequency: 0-2 drinks per day Patient Tobacco Use Status: Never used Tobacco e-Cigarette/Vaping Use: Never Used Second Hand Smoke Exposure: No service: No Current occupational status: employed 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 Cognitive needs: No Hearing needs: No Vision needs: Yes Questionnaire Medicare Wellness Checkup [age] What gender do you identify with?: female During the past 4 weeks, how much have you been bothered by emotional problems such as feeling anxious, depressed, irritable, sad or downhearted, and blue?: not at all During the past 4 weeks, has your physical & emotional health limited your social activities with family, friends, neighbors, or groups?: not at all During the past 4 weeks, how much bodily pain have you generally had?: mild pain During the past 4 weeks, was someone available to help you if you needed & wanted help?: yes, as much as I wanted During the past 4 weeks, what was the hardest physical activity you could do for at least 2 minutes?: moderate Can you get to places out of walking distance without help? (For eg., can you travel alone on buses, taxis or drive your car?): Yes Can you go shopping for groceries or clothes without someone's help?: Yes Can you prepare your own meals?: Yes Can you do your housework without help?: Yes Because of any health problems, do you need the help of another person with your personal care needs such as eating, bathing, dressing or getting around the house?: No Can you handle your own money without help?: Yes During the past 4 weeks, how would you rate your health in general?: very good During the past 4 weeks how have things been going for you?: pretty well Are you having difficulties driving your car?: no Do you always fasten your seat belt when you are in a car?: yes, usually During past 4 weeks, have you been bothered by the following: never: Falling or dizzy when standing up, Sexual problems?, Trouble eating well?, Teeth or denture problems?, Problems using the telephone? and Tiredness or fatigue? Have you fallen 2 or more times in the past year?: No Are you afraid of falling?: No Are you a smoker?: no During the past 4 weeks, how many drinks of wine, beer, or other alcoholic beverages did you have?: no alcohol at all Do you exercise for about 20 minutes 3 or more times a week?: yes, all the time Have you been given information to help with the following?: no: Hazards in your house that might hurt you? and no: Keeping track of your medications? How often do you have trouble taking medicines the way you have been told to take them?: I always take medicine as prescribed How confident are you that you can control & manage most of your health problems?: very confident What is your race?: White Mini Mental State Exam (MMSE) Orientation What is the (year) (season) (date) (day) (month)?: year, season, date, day and month Where are we (state) (county) (town or city) (hospital) (floor)?: state, county, town or city, hospital/clinic and floor Score Score: 10 Activity of Daily Living Bathing - sponge bath, tub bath or shower: receives no assistance (gets in/out by self, if usual bathing means Dressing - getting clothes from closets & drawers, including inner/outer garments & fasteners.: gets clothes & gets completely dressed without help Toileting - going to the 'toilet room' for urine/bowel elimination & cleaning self/arranging clothes: goes to toilet room, cleans self, arranges clothes without help Transfer: moves in & out of bed and chair without help (may use support object) Continence: controls urination/bowel movements completely by self Feeding: feeds self without help Total Score: 0 Information obtained from: patient Using telephone: independent Traveling: independent Shopping: independent Preparing meals: independent Housework: independent Taking medicine: independent Managing money: independent PHQ-9 Over the last 2 weeks, how often have you been bothered by any of the following problems? 1. Little interest or pleasure in doing things: not at all 2. Feeling down, depressed, or hopeless: not at all 3. Trouble falling or staying asleep, or sleeping too much: not at all 4. Feeling tired or having little energy: not at all 5. Poor appetite or overeating: not at all 6. Feeling bad about yourself - or that you are a failure or have let yourself or your family down: not at all 7. Trouble concentrating on things, such as reading the newspaper or watching television: not at all 8. Moving or speaking so slowly that other people could have noticed. Or the opposite - being so fidgety or restless that you have been moving around a lot more than usual: not at all 9. Thoughts that you would be better off or of hurting yourself in some way: not at all Total score: 0 Depression Screening Interpretation: Negative Depression Screening Done: Yes [id number] - PHQ-9 Billing: Yes Source: Developed by Drs. Serafin Flores, Christina Sheppard, Garry Perry and colleagues, with an educational adenike from [employer]. Review of Systems Const Denies chills, Denies fatigue, Denies headache(s) and Denies weight loss Eyes Denies change in vision, Denies diplopia and Denies eye pain ENT Reports Normal hearing present, Denies vertigo, Denies dizziness, Denies headache(s) and Denies nasal discharge Card Denies chest pain, Denies rapid heart rate and Denies dyspnea on exertion Resp Denies chest congestion, Denies cough, Denies pain with cough and Denies dyspnea on exertion GI Denies abdominal pain, Denies hematochezia and Denies change in bowel habits Musc Denies myalgias, Denies arthralgias and Denies joint swelling Skin/Breast Denies lesions and Denies unusual bruising Neuro Reports Normal hearing present, Denies vertigo, Denies dizziness, Denies headache(s) and Denies focal weakness Endo Denies fatigue Physical Exam Vital Signs: Last Vital Signs Pulse 60 07/31/24 12:52 BP 130/70 07/31/24 12:52 Pulse Ox 96 07/31/24 12:52 Oxygen Delivery Method Room Air 07/31/24 12:52 BMI result Body Mass Index 28.3 Neuro Cranial nerves: Yes Normal hearing present Office Procedures Flu Questionnaire Does the patient have a severe egg allergy?: No Immunizations Fluarix Triv [id number] (PF) 45 mcg (15 mcg x 3)/0.5 mL IM syringe Performing Provider: Ciaran Carlos MD [facility] Documented (not given) by: CLAUDETTE Bridges on 07/31/24 13:03 Reason Not Given: Patient Refused Assessment & Plan Assessment & Plan (1) Encounter for initial annual wellness visit (AWV) in Medicare patient: Code(s): Z00.00 - Encounter for general adult medical examination without abnormal findings Plan: rhomberg and whisper tests normal (2) Hypertension: Code(s): I10 - Essential (primary) hypertension Plan: stable; same rx (3) Hyperlipidemia: Code(s): E78.5 - Hyperlipidemia, unspecified Plan: stable; same rx Orders: Orders Influenza [id number] Immunization 07/31/24 Z23 - Encounter for immunization Lipid Panel 07/31/24 Z13.220 - Encounter for screening for lipoid disorders Medications: Refilled scopolamine base 1 patch transdermal Q3D PRN 4 ea 2RF nausea and vomiting scopolamine base 1 patch transdermal Q3D PRN 4 ea 0RF nausea and vomiting Quality Reporting (2019) Depression/Bipolar (159/160/161/177) PHQ-9: Total score: 0 Coding Level of Care Code Medicare Subsequent (G0439) Diagnoses Encounter for initial annual wellness visit (AWV) in Medicare patient Z00.00 Hypertension I10 Hyperlipidemia E78.5 CPT Codes Advance Care Planning - Advance Care Planning discussion: On file, no changes ([id number]) Additional Codes PHQ-9 - 56755 - PHQ-9 Billing: Yes ([id number]) Advance Care Planning Advance Care Planning discussion: On file, no changes Forms completed: Health Care Proxy
[2024-07-31 12:52] VITALS: BP 130/70; PULSE 60; O2SAT 96; BMI 28.3
--- OUTSIDE RECORDS SUMMARY | 2024-08-06 19:14 | XMS_ITS ---
Author Organization [facility] Address [address] [place] [address] Care Team Providers Care Cloth Measurer Machine Name Role Phone Terrance SHULTZ, Ciaran Primary Care Provider José Miguel Montaño [phone] Allergies Allergen (clinical drug ingredient) Drug/Non Drug Allergy documented on EMR Reaction Allergy Type Onset Date Status ChloraPrep One Step Rash Drug Allergy Active Keflex abdominal pain Drug Allergy Ac tive REASON FOR VISIT Last Visit PCP 01/2023 Medications Medication SIG (Take, Route, Frequency, Duration) Notes Start Date End Date Status Crestor 5 mg Not-Tanmay ing Gabapentin 300 MG 1 capsule Orally Once a day for 10 Not-Taking Piroxicam Not-Taking Naproxen Active Ursodiol 300 MG Orally Acti ve Caltrate 600 1500 (600 Ca) MG as directed Orally Active Anastrozole 1 MG 1 tablet Orally Once a day for 30 day(s) Active Gemfibrozil 600 MG Orally once a day Not-Taking Atenolol 50 MG Orally Once a day Active hydroCHLOROthiazide 25 MG Orally Once a day Active Voltaren 1 % as directed Externally Active Rosuvastatin Calcium 5 MG 1 tablet Orall y Once a day Active Valsartan Active Vital Signs Height 5 ft 7 in in 04/17/2023 Weight 176 lbs 04/17/2023 BMI 27.56 kg/m2 04/17/2023 Blood pressure systolic 140 mm Hg 04/17/20 23 Blood pressure diastolic 80 mm Hg 023 Encounters Encounter Location Date Provider Diagnosis [facility] [address] [place] [address] 04/17/2023 José Miguel Crooks Other hammer toe(s) [...] M20.21 and Hallux rigidus, left foot M20.22 Assessments Encounter Date Diagnosis (ICD Code) Assessment Notes Treatment Notes Treatment Clinical Notes Section Notes 04/17/2023 Other hammer toe(s) (acquired), left [...] Hallux rigidus, left foot (ICD-10 - M20.22) Plan Of Treatment Medication Medication Name Sig Start Date Stop Date Notes Voltaren 1 % as directed Externally Next Appt Details Follow Up: prn, Reason: Procedure Notes * Category Sub-Category Detail Notes Injection Sm. Joint, Bursa , J0702 In jection #2 sm/med joint bursa/capsule 1cc 1% Xylo.pl + 3mg Celestone Soluspan utilizing aseptic technique. The patient tolerated the procedure well. A dry sterile dressing was applied. Post injection instructions were dispensed, verbally discussed, and confirmed understood by the patient. I explained that a steroid and local anesthetic injection usually decreases pain and inflammation. I explained the possible complications including but not limited to signs/symptoms of steroid flare, change/deviation in toe position, infection, bruising, atrophy, discoloration of skin, additional injections may be necessary, LEFT 3rd mt-cun Progress Notes * Sada HAYDENOB:1949 (72 yo F)Acc No.[id number]:04/17/2023 Progress Note Patient:?Sada Hayden Provider:?José Miguel Crooks DPM :1950???Age:72 Y???Sex:Female D ate:04/17/2023 Address:[address] [place], [place] [id number] Pcp:Ciaran Carlos MD Subjective: * Chief Complaints: * ???Last Visit PCP 01/2023 * HPI: ???Foot Pain:?Nature:?aching, swelling, sharp, shooting.?Location:?Top, Midfoot, LEFT.?Duration:?several months.?Onset:?unknown.?Course:?worse in past 2 months.?Aggrevated:?shoes.?Treatments:?cortisone injection.?Severity/Quality:?5-6, scale 1-10.?Toe pain:?Nature:?aching.?Location:?Bottom, 5th toe, B/L feet.?Duration:?several months.?Onset/Cause:?gradual.?Course:?intermittent.?Aggrevated by:?standing/walking.? * ROS:?General/Constitutional:?Nausea?denies.?Vomiting?denies.?Hunger Thirst?denies.?Loss appetite?denies.?Chills?denies.?Fatigue?denies.?Fever?denies.?Night Sweats?denies.?Unexplained weight loss?denies.?Respiratory:?Patient denies?cough, hemoptysis, pain with inspiration, chest pain, shortness of breath at rest, shortness of breath with exertion.?Cardiovascular:?Patient denies?chest pain at rest, chest pain with exertion, palpitations.?Gastrointestinal:?Stomach/Abdominal pain?denies.?Dark blood stool?denies.?Irritable bowel ?denies.?Constipation?denies.?Diarrhea?denies.?Vomiting?denies.?Hematology:?Bleeding problem?denies.?Musculoskeletal:?Patient denies?any other musculoskeletal complaints.?Peripheral Vascular:?Patient denies?cold extremities.?Neurologic:?Difficulty sleeping?denies.?Confusion?denies.? * Medical History:? * Surgical History:?hysterecto my apr 2007hammer toe 07/12/rthroscopic knee surgery right knee 05/2018cataract surgery 04/2018Breast Surgery-lumpectomy 12/2018HT L 4th R4,5, Exotosis R5 DIPJ, Skin lesion R ft 05/30/2019 * Hospitalization/Major Diagno stic Procedure:?Arthrocopic knee surgery, right 05/2018 * Family History:?Mother: dece ased, cancer, arthritis, foot problems, high blood pressure, diagnosed with Family history of arthritis, Unspecified essential hypertension, Other malignant neoplasm of unspecified site.?Father: , cancer, diagnosed with Other malignant neoplasm of unspecified site.?Spouse: alive.? * Medications:?TakingRosuvasta tin Calcium 5 MG Tablet 1 tablet Orally Once a dayValsartan Atenolol 50 MG Tablet Orally Once a dayAnastrozole 1 MG Tablet 1 tablet Orally Once a dayCaltrate 600 1500 (600 Ca) MG Tablet as directed Orally hydroCHLOROthiazide 25 MG Tablet Orally Once a dayNaproxen Ursodiol 300 MG Capsule Orally Voltaren 1 % Gel as directed Externally Taking Rosuvastatin Calcium 5 MG Tablet 1 tablet Orally Once a dayTaking Valsartan Taking Atenolol 50 MG Tablet Orally Once a dayTaking Anastrozole 1 MG Tablet 1 tablet Orally Once a dayTaking Caltrate 600 1500 (600 Ca) MG Tablet as directed Orally Taking hydroCHLOROthiazide 25 MG Tablet Orally Once a dayTaking Naproxen Taking Ursodiol 300 MG Capsule Orally Taking Voltaren 1 % Gel as directed Externally Not-Taking/PRNGemfibrozil 600 MG Tablet Orally once a dayGabapentin 300 MG Capsule 1 capsule Orally Once a dayCrestor 5 mg Piroxicam Medication List reviewed and reconciled with the patientNot-Taking/PRN Gemfibrozil 600 MG Tablet Orally once a dayNot-Taking/PRN Gabapentin 300 MG Capsule 1 capsule Orally Once a dayNot-Taking/PRN Crestor 5 mg Not-Taking/PRN Piroxicam Medication List reviewed and reconciled with the patient * Allergies:?Keflex: abdominal painChloraPrep One Step: Rashyes[Allergies Verified] Objective: * Vitals:?Ht: 5 ft 7 in, Wt:17 6, BMI:27.56, Shoe size:9.5, BP:140/80 mm Hg. * Examination: ???General Examination: ?GENERAL APPEARANCE:?alert, well hydrated, in no distress , good attention to hygiene.?ORIENTED:?person, place, and time.?Dermatologic: ?SKIN FINDINGS:? Skin exam reveals Keratotic lesion(s) located at, SUB MTH (s), 5, B/L , SUB MTH (s), 1, B/L.?Neurological: ?SENSORY:? Neurological exam demonstrates pop dorusm left TN? 2nd and 3rd mt-cun and .?Vascular: ?DP PULSES:? 2/4, B/L.?PT PULSES:? 2/4, B/L.?Heel Pain: ?INSPECTION:? pop posterior right heel at AT insertion.?Orthopedic: ?MUSCLE STRENGTH:?5/5 all groups in a symmetrical fashion , B/L.?BUNION:? Limited 1st MPJ Dorsal ROM, Limited 1st MPJ Plantar ROM.?TAILOR'S BUNION:?Prominent 5th MTH/MPJ, B/L.? Assessment: * Assessment: 1.?Other hammer toe(s) (acqu ired), left foot - M20.42 (Primary)?2.?Pain in left foot - M79.672?3.?Other hammer toe(s) (acquired), right foot - M20.41?4.?Primary osteoarthritis, left ankle and foot - M19.072?5.?Calcaneal spur, right foot - M77.31?6. Metatarsalgia, right foot - M77.41?7.?Tailor's bunion of right foot - M21.621?8.?Tailor's bunion of left foot - M21.622?9.?Hallux rigidus, right foot - M20.21?10.?Hallux rigidus, left foot - M20.22? Plan: * Treatment: * Procedures:?Injection:?Sm. Joint, Bursa?, J0702 Injection #2 sm/med joint bursa/capsule 1cc 1% Xylo.pl + 3mg Celestone Soluspan utilizing aseptic technique. The patient tolerated the procedure well. A dry sterile dressing was applied. Post injection instructions were dispensed, verbally discussed, and confirmed understood by the patient. I explained that a steroid and local anesthetic injection usually decreases pain and inflammation. I explained the possible complications including but not limited to signs/symptoms of steroid flare, change/deviation in toe position, infection, bruising, atrophy, discoloration of skin, additional injections may be necessary, LEFT 3rd mt-cun.? * Procedure Codes:?J0702 INJ B ETAMETHSN ACTAT&SOD [id number] DRAIN/INJECT, JOINT/BURSA, Modifiers: XS * Preventive Medicine:? ??Counseling:?Discussion:?-13: Office or other outpatient visit for the evaluation and management of an established patient, which required a medically appropriate history and/or examination and LOW level of DECISION MAKING for: 1 STABLE ACUTE UNCOMPLICATED PROBLEM, 2 OR MORE MINOR PROBLEMS, OR 1 STABLE CHRONIC PROBLEM, THAT POSE(S) A LOW RISK FOR MORBIDITY/MORTALITY. The visit on the day of the encounter encompassed interpreting the data and educating the patient as to the nature of their condition, treatment options available according to their individual PMH, meds, allergies, and overall health/living conditions, as well as any potential risks or complications that may occur from a failure to adhere to, and participate in, the recommended course of therapy. The discussion included a complete verbal, and/or written explanation of the examination results, any x-rays taken, the proposed diagnosis, and outline of the treatment plan. A schedule for future care needs was also explained. The patient verbalized an understanding of the instructions at this time and agreed to be an active participant in their treatment. If the patient should think of any questions or concerns after the visit, I have encouraged the patient to call the office---debrided callouses melba .? * Follow Up:?prn * Images: * Sign off status: Completed true * Provider:?José Miguel Crooks DPM Date:? 023 Generated for Nataliia romero/Kostas/Ghulam on:?08/06/2024 07:13 PM EST History and Physical Notes * HPI (History of Present Illness) Category Sub-Category Detail Notes Category Not es Toe pain Nature: aching Location: Bottom, 5th toe, B/L feet Duration: several months Onset/Cause: gradual Course: intermittent Aggravated by: standing/walking Foot Pain Nature: aching, swelling, sharp, vlad oting Location: Top, Midfoot, LEFT Duration: several months Onset: unknown Course: worse in past 2 shivani hs Aggravated: shoes Treatments: cortisone injection Severity/Quality: 5-6, scale 1-10 Examination Category Sub-Category Detail Notes Category Not es Neurological SENSORY: Neurological exa m demonstrates pop dorusm left TN 2nd and 3rd mt-cun and Dermatologic SKIN FINDINGS: Skin exam reveal s Keratotic lesion(s) located at, SUB MTH (s), 5, B/L , SUB MTH (s), 1, B/L Orthopedic BUNION: Limited 1st MPJ Dorsal ROM, Limited 1st MPJ Plantar ROM TAILOR'S BUNION: Prominent 5th MTH/MP J, B/L MUSCLE STRENGTH: 5/5 all groups in a symmetrical fashion , B/L General Examination GENERAL APPEARANCE: alert, w ell hydrated, in no distress , good attention to hygiene ORIENTED: person, place, and t keyur Vascular DP PULSES(B): 2/4, B/L PT PULSES(B): 2/4, B/L Heel Pain INSPECTION: pop posterior right heel at AT insertion
--- OUTSIDE RECORDS SUMMARY | 2024-08-06 19:14 | XMS_ITS | Data Portability ---
Author Organization [place] [facility], [facility]- Address [address] [place] [address] Assessment Encounter Date Assessment Date Assessment LastModified by Organization Details LastModified Time 10/02/2023 10/02/2023 Her new x-rays confirm her end-stage osteoarthritis to both knees. She has a candidate for knee replacement, she wants to wait till May. She tolerated Depo-Medrol injections. We had a nice discussion about how Zilretta works and why she prefers Depo over the Zilretta. We will see her in 3 months' time. I would consider repeat injections at that time and then we can get her to the cue for total knee replacement. [email or web address] Not available 10/02/2023 10:36:10 Plan of Treatment Reminders Order Date Submit Date Provider Last Modified By Organization Details Last Modified Time Details Appointments None record ed. Lab None record ed. Referral None record ed. Procedures None record ed. Surgeries None record ed. Imaging XR, knee 023 04/21/20 23 [email or web address] In-Office Order, Internal Use Only DO Not Attach Compendium DO Not Attach Compendium, Do Not Delete/merge, [id number] 08:08:48 XR, knee 024 10/02/19 24 [email or web address] In-Office Order, Internal Use Only DO Not Attach Compendium DO Not Attach Compendium, Do Not Delete/merge, [id number] 15:52:00 Medication Orders None record ed. Patient TargetsNo targets recorded. Patient Instructions Encounter Date Encounter Id Patient Instructions Last Modified By Organization Details Last Modified Time 04/21/2023 [id number] X-rays of both k nees demonstrate significant osteoarthritic change, grade 3 osteoarthritis. MRI scan of her left knee demonstrates endstage patellofemoral arthritis and also significant lateral joint space narrowing consistent with osteoarthritic pattern. X-ray of the right knee demonstrates medial joint space narrowing with edema in the medial femoral condyle and tibial plateau and patella consistent with tricompartmental arthritis. At this time, we have had a nice discussion about the treatment options associated with knee osteoarthritis which could be a standard corticosteroid injection, Zilretta, viscosupplementation . We have also talked about laser, Orthobiologics, and surgical intervention including a total knee replacement. From a surgical perspective, the only operation we would consider would be a knee replacement moving forwards. She is an excellent candidate. She is otherwise in good health. Today, we are going to proceed with Zilretta injection to provide her temporary relief. They are going to go down to [place] for the winter, and when they return in the spring time, we are happy to get her set up and into the queue for a knee replacement at that time. [email or web address] Not available 04/22/2023 04:33:05 Reason for Referral None Reported. Results Created Date Observation Date Name Description Value Unit Range Abnormal Flag Note LastModifiedBy Organization Detail LastModifiedTime 04/21/20 XR, knee No observ ation record ed. [email or web address] In-Office Order Internal Use Only DO Not Attach Compendium DO Not Attach Compendium, Do Not Delete/merge, [id number] 04/21/2023 10:39:03 04/21/20 23 03/15/2018 MRI, knee, w/o contr ast No observ ation record ed. Not Available 2022 11:17:07 04/21/20 23 10/28/2022 MRI, knee, w/o contr ast No observ ation record ed. [email or web address] Not Available 2022 11:17:48 10/02/19 24 XR, knee No observ ation record ed. [email or web address] In-Office Order Internal Use Only DO Not Attach Compendium DO Not Attach Compendium, Do Not Delete/merge, [id number] 10/02/2023 10:21:33 Result Notes None recorded. Procedures Surgical History Date Name Laterality Status Provider Name and Address Organization Details Recorded Time 4 (SAS) Knee Cortisone Injection completed Alfredo Jade MD [address] [place], [address], [facility] 10/02/2023 10:33:34 3 (SAS) Knee Cortisone Injection completed Alfredo Jade MD [address] [place], [address], [facility] 04/21/2023 10:50:10 Imaging Results Imaging Date Name Status LastModified by Organiz ation Details LastModified Time 04/21/2023 XR, knee completed [email or web address] In-Office Orde r Internal Use Only DO Not Attach Compendium DO Not Attach Compendium, Do Not Delete/merge, [id number] 04/21/2023 10:39:03 03/15/2018 MRI, knee, w/o contrast completed Information not available 04/21/2023 11:17:07 10/28/2022 MRI, knee, w/o contrast completed [email or web address] Information not available 04/21/2023 11:17:48 10/02/2023 XR, knee completed [email or web address] In-Office Orde r Internal Use Only DO Not Attach Compendium DO Not Attach Compendium, Do Not Delete/merge, [id number] 10/02/2023 10:21:33 Procedure Notes None recorded. Medical Equipment None Reported. Allergies No known drug allergies Medications Name Sig Start Date Stop Date Status Note LastModified by Organization Details LastModified Time anastrozole 1 mg tablet TAKE 1 TABLET BY MOUTH EVERY DAY active Not Available Not Available No t Available triamcinolo ne acetonide 0.5 % topical cream APPLY TOPICALLY 2 TIMES A DAY active Not Available Not Available No t Available tretinoin 0.025 % topical cream APPLY DAILY AT BEDTIME TO FACE FOR PHOTOAGIN G. active Not Available Not Available No t Available valsartan 80 mg tablet TAKE 1 TABLET BY MOUTH EVERY DAY active Not Available Not Available No t Available aspirin 325 mg tablet,kapil yed release TAKE ONE TABLET TWICE A DAY FOR 30 DAYS ONLY. MEDICATIO N TO BE STARTED AFTER SURGERY. 04/21 completed Not Available Not Available Not Available gemfibrozil 600 mg tablet TAKE 1 TABLET BY MOUTH TWICE A DAY active Not Available Not Available No t Available pantoprazol e 40 mg tablet,kapil yed release TAKE 1 TABLET BY MOUTH EVERY DAY FOR AFTER SURGERY active Not Available Not Available No t Available ursodiol 300 mg capsule TAKE 2 CAPSULES BY MOUTH TWICE A DAY FOR 90 DAYS active Not Available Not Available No t Available docusate sodium 100 mg capsule TAKE 1 CAPSULE BY MOUTH TWICE A DAY DIRECTED TO BE STARTED AFTER SURGERY active Not Available Not Available No t Available hydrochloro thiazide 25 mg tablet TAKE 1 TABLET BY MOUTH EVERY DAY NEEDED FOR HYPERTENS ION active Not Available Not Available No t Available lorazepam 1 mg tablet TAKE 1 TABLET BY MOUTH AT BEDTIME NEEDED FOR ANXIETY active Not Available Not Available No t Available epinephrine 0.3 mg/0.3 mL injection, auto-inject or INJECT THE CONTENTS OF 1 PEN IN TO THE MUSCLE EVERY 4 HOURS NEEDED FOR ANAPHYLAX IS active Not Available Not Available No t Available scopolamine 1 mg over 3 days transdermal patch APPLY 1 PATCH EVERY 3 DAYS NEEDED FOR NAUSEA AND VOMITING active Not Available Not Available No t Available atenolol 50 mg tablet TAKE 1 TABLET BY MOUTH EVERY DAY active Not Available Not Available No t Available naproxen 500 mg tablet TAKE 1-2 TABLETS BY MOUTH DAILY WITH FOOD active Not Available Not Available No t Available rosuvastati n 5 mg tablet TAKE 1 TABLET BY MOUTH EVERY DAY active Not Available Not Available No t Available nitrofurant oin monohydrate /macrocryst als 100 mg capsule TAKE 1 CAPSULE BY MOUTH EVERY 12 HOURS WITH FOOD FOR 5 DAYS active Not Available Not Available No t Available bimatoprost 0.03 % drops with applicator, eyelash base APPLY 1 DROP TO UPPER EYELASHES AND EYEBROWS AT BEDTIME active Not Available Not Available No t Available sodium,pota ssium,mag sulfates 17.5 gram-3.13 gram-1.6 gram oral soln PLEASE SEE ATTACHED FOR DETAILED DIRECTION S active Not Available Not Available No t Available Flowflex COVID-19 Antigen Home Test kit FOLLOW DIRECTION S ON BOX active Not Available Not Available No t Available Vitals Date Recorded Body height Body weight Provider Name and Address Organization Details Last Updated DateTime 04/21/2023 167.64 cm 09611.81 g alejo payan [place] - [facility] 04/21/2023 10:18:09 Date Recorded Body height Body mass index (BMI) Body weight Provider Name and Address Organization Details Last Updated DateTime 10/02/2023 167.64 cm 29.4 kg/m2 78477.81 g Radha Aubrey h [place] [facility] 10/02/2023 09:59:31 Social History Question Answer Notes LastModified by Organizat ion Details LastModified Time Tobacco Smoking Status Never Smoker alejo payan [place] [facility] 04/21/2023 10:19:10 What Is Your Level Of Alcohol Consumption? None [email or web address] Information not available 04/21/2023 What Was The Date Of Your Most Recent Tobacco Screening? 04/21/2023 [email or web address] Information not available 04/21/2023 Do You Use Any Illicit Or Recreational Drugs? No Information not available 04/21/2023 Do You Or Have You Ever Used Any Other Forms Of Tobacco Or Nicotine? No [email or web address] Information not available 04/21/2023 Sex: Unknown Functional Status None recorded. Mental Status None recorded. Family History Nothing Reported. Medical History Condition Response Coronary Artery Disease N HIV or AIDS N Gout N Migraines N Thyroid Problems N Lung Disease N Depression N Blood Clots N Pacemaker N Anemia N Heart Attack ([place]) N Ulcers N Anxiety Disorder Y Diabetes N Bleeding Disorder N Arthritis Y Seizures/Epilepsy N Tuberculosis N Cancer Y Stroke N Asthma N Leg or Foot Ulcers N Peripheral Vascular Disease N GERD/Reflux N Hepatitis N Liver Disease Y Heart Disease N Rheumatoid Arthritis N Pulmonary Embolism N Hypertension N Osteoporosis N Kidney Disease N Gynecological HistoryNo gynecological history recorded. Obstetrics History GPAL:G 0 P 0 0 0 0 Past Encounters Encounter ID Performer Location Encounter Start Date Encounter Closed Date Diagnosis/Indication Diagnosis SNOMED-CT Code Diagnosis ICD10 Code [id number] MD JD Mosher [address] [place] [address] 04/21/2023 09:58:38 04/21/2023 10:57:02 Osteoarthritis of right knee joint 5113069685 10703 M17.11 Osteoarthr itis of left knee joint 5893216683 43828 M17.12 [id number] MD JD Mosher [address] [place] [address] 10/02/2023 09:57:14 10/02/2023 10:45:44 Osteoarthritis of right knee joint 4161790499 65491 M17.11 Osteoarthr itis of left knee joint 0847783328 00557 M17.12 Health Concerns Section Related Observation LastModified by Organization Detai ls LastModified Time None Recorded Concern Status LastModified by Organization Details LastModified Time None Recorded Advance Directives Directive None Recorded Payers Encounter Date Sequence Insurance Name Policy Number Policy Luevano Covered Member ID Luevano Member ID Guarantor Name 04/21/2023 1 [place] [employer] Betty Mera [id number] Betty Mera 04/21/2023 2 [place] [id number] Betty Mera [id number] Betty Mera 10/02/2023 1 [place] Betty Mera [id number] Betty Mera 10/02/2023 2 [place] [id number] Betty Mera [id number] Betty Mera Notes Date Note Type Note Provider Name and Address Organization Details Recorded Time 04/21/2023 text/html A 72-year-old [place] man who is from the [facility] area, who has heard about us from other patients, who presents with bilateral history of knee arthritis. She has had x-rays and MRI scan. She has had cortisone shots, nonoperative measures with worsening pain and discomfort as of late. She is strongly considering surgical intervention. She is here today for second opinion, here today with her as well. Alfredo Jade MD [address] [place] [address], [phone], [facility] 04/22/2023 04:33:09 10/02/2023 text/html Note on this patient today was well known to us for bilateral knee osteoarthritis. She most recently had Zilretta injections and she was not happy with the Zilretta wore off, if anything her symptoms have worsened over time. She is now here today for evaluation. She is considering a knee replacement but not until May. She is here today specifically hoping to have additional injections to improve pain and function. Alfredo Jade MD [address] [place] [address], [phone], [facility] 10/02/2023 10:37:18 OBGyn Episode No OBEpisode recorded.
--- OUTSIDE RECORDS SUMMARY | 2024-08-06 19:14 | XMS_ITS ---
Author Organization [facility] Address [address] [place] [address] Care Team Providers Care Textile Machine Mechanic Name Role Phone Terrance SHULTZ, Ciaran Primary Care Provider José Miguel Montaño [phone] Allergies Allergen (clinical drug ingredient) Drug/Non Drug Allergy documented on EMR Reaction Allergy Type Onset Date Status ChloraPrep One Step Rash Drug Allergy Active Keflex abdominal pain Drug Allergy Ac tive REASON FOR VISIT Last Visit PCP 11/2023 Medications Medication SIG (Take, Route, Frequency, Duration) Notes Start Date End Date Status Voltaren 1 % as directed Externally Active Valsartan Active Atenolol 50 MG Orally Once a day Active Anastrozole 1 MG 1 tablet Orally Once a day for 30 day(s) Active Rosuvastatin Calcium 5 MG 1 tablet Orall y Once a day Active Piroxicam Not-Taking Ursodiol 300 MG Orally Acti ve Gemfibrozil 600 MG Orally once a day Not-Taking Gabapentin 300 MG 1 capsule Orally Once a day for 10 Not-Taking Crestor 5 mg Not-Tanmay ing Caltrate 600 1500 (600 Ca) MG as directed Orally Active hydroCHLOROthiazide 25 MG Orally Once a day Active Naproxen Active Social History Tobacco Use: Social History Observation Description Date Details (start date - stop date) Never Smoker NA - NA Tobacco Use/Smoking Question Answer Notes Are you a: nonsmoker Additional Findings: Tobacco Non-User Current no n-smoker Alcohol Screen Question Answer Notes Did you have a drink containing alcohol in the p ast year? No Points 0 Interpretation Negative Tobacco use other than smoking: Question Answer Notes Are you an other tobacco user? No Vital Signs Height 5 ft 7 in in 04/03/2024 Weight 178 lbs 04/03/2024 BMI 27.88 kg/m2 04/03/2024 Blood pressure systolic 130 mm Hg 04/03/20 24 Blood pressure diastolic 80 mm Hg 024 Encounters Encounter Location Date Provider Diagnosis [facility] [address] [place] [address] 04/03/2024 José Miguel Crooks Other hammer toe(s) (acquired), [...] Treatment Notes Treatment Clinical Notes Section Notes 04/03/2024 Other hammer toe(s) (acquired), left foot (ICD-10 - M20.42) 04/03/2024 Pain in left foot (ICD-10 - M79.672) 04/03/2024 Other hammer toe(s) (acquired), right foot (ICD-10 - M20.41) 04/03/2024 Primary osteoarthritis, left ankle and foot (ICD-10 - M19.072) 04/03/2024 Calcaneal spur, right foot (ICD-10 - M77.31) 04/03/2024 Metatarsalgia, right foot (ICD-10 - M77.41) 04/03/2024 Tailor's bunion of right foot (ICD-10 - M21.621) 04/03/2024 Tailor's bunion of left foot (ICD-10 - M21.622) 04/03/2024 Hallux rigidus, right foot (ICD-10 - M20.21) 04/03/2024 Hallux rigidus, left foot (ICD-10 - M20.22) Plan Of Treatment Medication Medication Name Sig Start Date Stop Date Notes Voltaren 1 % as directed Externally Next Appt Details Follow Up: prn, Reason: Procedure Notes * Category Sub-Category Detail Notes Injection Sm. Joint, Bursa , J0702 In jection #2 sm/med joint bursa/capsule 2cc 1% Xylo.pl + 3mg Celestone Soluspan utilizing [...] additional injections may be necessary, LEFT 3rd mt[facility] Progress Notes * Sada HAYDENOB:1949 (73 yo F)Acc No.[id number]:04/03/2024 Progress Note Patient:?Sada Hayden Provider:?José Miguel Crooks DPM :1950???Age:73 Y???Sex:Female D ate:04/03/2024 Address:[address] [place] [id number] Pcp:Ciaran Carlos MD Subjective: * Chief Complaints: * ???Last Visit PCP 11/2023 * HPI: ???Foot Pain:?Nature:?aching, swelling, sharp, shooting.?Location:?Top, Midfoot, LEFT.?Duration:?several months.?Onset:?unknown.?Course:?worse.?Aggravated:?shoes.?Treatments:?cortisone injection.?Severity/Quality:?5-6, scale 1-10.?Toe pain:?Nature:?aching.?Location:?Bottom, 5th toe, B/L feet.?Duration:?several months.?Onset/Cause:?gradual.?Course:?intermittent.?Aggravated by:?standing/walking.? * ROS:?General/Constitutional:?Nausea?denies.?Vomiting?denies.?Hunger Thirst?denies.?Loss appetite?denies.?Chills?denies.?Fatigue?denies.?Fever?denies.?Night Sweats?denies.?Unexplained weight loss?denies.?Unexplained weight gain?denies.?HEENTM:?Dentures?denies.?Dizziness?denies.?Glasses/contacts?denies.?Retinopathy?de nies.?Blurred/double vision?denies.?TMJ?denies.?Discharge/drainage?denies.?Implants?denies.?Sore throat?denies.?Dental implants?denies.?Hard of hearing ?denies.?Difficulty chewing/swallowing/speaking?denies.?Nose bleeds?denies.?Sore mouth?denies.?Respiratory:?On Oxygen?denies.?Pneumonia/pleurisy?denies.?Bronchitis?denies.?Emphysema?denies.?C oughing?denies.?Cough blood?denies.?Shortness of breath?denies.?Wheezing?denies.?Cardiovascular:?Pacemaker?denies.?MVP?denies.?WPW?denies.?CHF?denies.?Heart attack?denies.?Septal defect?denies.?Rapid beat?denies.?Chest pain ?denies.?Atrial Fib.?denies.?Murmur/Palpitations?denies.?Gastrointestinal:?Hemorrhoids?denies.?Stomach/Abdominal pain?denies.?Dark blood stool?denies.?Irritable bowel ?denies.?Constipation?denies.?Diarrhea?denies.?Hematology:?Swelling?denies.?Clots?denies.?Varicose Veins?denies.?Bruising?denies.?Bleeding problem?denies.?Genitourinary:?Blood urine?denies.?Frequent/Painfu/urination/bladder control?denies.?Kidney stones?denies.?Infection (UTI)?denies.?Nephropathy?denies.?sex trans dis (STD)?denies.?Prostate?denies.?Musculoskeletal:?Hammertoes?denies.?Bunions?admits.?Back Pain?denies.?Muscle Cramps/ Resting?denies.?Muscle cramps / walking?denies.?Generalized aches and pains?admits.?Weakness?denies.?Integ.:?Godfrey?denies.?Scars?denies.?Corns/calluses?admits.?Ingrown nails?denies.?Painful nails?denies.?Open Sores?denies.?Rashes?denies.?Neurologic:?Difficulty sleeping?denies.?Brain disorder?denies.?Numbness?denies.?Balance trouble?denies.?Confusion?denies.?Fainting/blackouts?denies.?Tingling?denies.?Tr emors?denies.? * Medical History:? * Surgical History:?hysterecto my [...] malignant neoplasm of unspecified site.?Spouse: alive.? * Social History:?Tobacco Use:?Tobacco Use/Smoking?Are you a:?nonsmoker ?Additional Findings: Tobacco Non-User?Current non-smoker ?Tobacco use other than smoking?Are you an other tobacco user??No ???Drugs/Alcohol:?Drugs?Have you used drugs other than those for medical reasons in the past 12 months??No ?Alcohol Screen?Did you have a drink containing alcohol in the past year??No ?Points?0 ?Interpretation?Negative ???Miscellaneous:?Caffeine: yes, 1 cups per day. ?Children: yes, 2. ?Exercise: yes, swimming, walking, gym. ?Marital status: . 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 * Medications:?TakingVoltaren 1 % Gel as directed Externally Rosuvastatin Calcium 5 MG Tablet 1 tablet Orally Once a dayValsartan Atenolol 50 MG Tablet Orally Once a dayAnastrozole 1 MG Tablet 1 tablet Orally Once a dayCaltrate 600 1500 (600 Ca) MG Tablet as directed Orally hydroCHLOROthiazide 25 MG Tablet Orally Once a dayNaproxen Ursodiol 300 MG Capsule Orally Taking Voltaren [...] Naproxen Taking Ursodiol 300 MG Capsule Orally Not-Taking/PRNGemfibrozil 600 MG Tablet Orally once a [...] * Vitals:?Ht: 5 ft 7 in, Wt:17 8, BMI:27.88, Shoe size:9.5, BP:130/80 mm Hg. * Examination: ???General Examination: ?GENERAL APPEARANCE:?alert, well hydrated, in no distress , good attention to hygiene.?ORIENTED:?person, place, and time.?Dermatologic: ?SKIN FINDINGS:? Skin exam reveals Keratotic lesion(s) located at, SUB MTH (s), 5, B/L , SUB MTH (s), 1, B/L.?Neurological: ?SENSORY:? Neurological exam demonstrates pop dorusm left 2nd and 3rd mt- cun and .?Vascular: ?DP PULSES:? 2/4, B/L.?PT PULSES:? [...] M20.22? Plan: * Treatment: * Procedures:?Injection:?Sm. Joint, Bursa?60351, J0702 Injection #2 sm/med joint bursa/capsule 2cc 1% Xylo.pl + 3mg Celestone Soluspan utilizing [...] * Procedure Codes:?J0702 INJ B ETAMETHSN ACTAT&SOD [id number] DRAIN/INJECT, JOINT/BURSA, Modifiers: XS * Preventive Medicine:? [...] true * Provider:?José Miguel Crooks DPM Date:? 024 Generated for Nataliia romero/Kostas/eTbrendan on:?08/06/2024 07:13 PM EST History and Physical Notes * HPI (History of Present Illness) Category Sub-Category Detail Notes Category Not es Toe pain Nature: aching Location: Bottom, 5th toe, B/L feet Duration: several months Onset/Cause: gradual Course: intermittent Aggravated by: standing/walking Foot Pain Nature: aching, swelling, sharp, vlad oting Location: Top, Midfoot, LEFT Duration: several months Onset: unknown Course: worse Aggravated: shoes Treatments: cortisone injection Severity/Quality: 5-6, scale 1-10 Examination Category Sub-Category Detail Notes Category Not es Neurological SENSORY: Neurological exa m demonstrates pop dorusm left 2nd and 3rd mt-[facility] and Dermatologic SKIN [...]
--- OUTSIDE RECORDS SUMMARY | 2024-08-06 19:14 | XMS_ITS | Patient Health Record ---
Author [facility] Address [address] [place] [address] Care Team Providers Care Crm Coordinator Name Role Phone Ciaran Carlos MD Primary Care Provider José Miguel Montaño Unavailable [phone] Allergies Allergen (clinical drug ingredient) Drug/Non Drug Allergy documented on EMR Reaction Allergy Type Onset Date Status ChloraPrep One Step Rash Drug Allergy Active Keflex abdominal pain Drug Allergy Ac tive Reason For Referral No Information Medications Medication SIG (Take, Route, Frequency, Duration) Notes Start Date End Date Status Piroxicam Not-Taking Valsartan Active Atenolol 50 MG Orally Once a day Active Anastrozole 1 MG 1 tablet Orally Once a day for 30 day(s) Active Caltrate 600 1500 (600 Ca) MG as directed Orally Active hydroCHLOROthiazide 25 MG Orally Once a day Active Naproxen Active Ursodiol 300 MG Orally Acti ve Gemfibrozil 600 MG Orally once a day Not-Taking Gabapentin 300 MG 1 capsule Orally Once a day for 10 Not-Taking Crestor 5 mg Not-Tanmay ing Rosuvastatin Calcium 5 MG 1 tablet Orall y Once a day Active Voltaren 1 % as directed Externally Active Immunizations Vaccine Route Administration Date Status Comme nts COVID-19 Moderna Vaccine Unknown 12/23/2020 Administere d 1st 11/25/2020 Social History Tobacco Use: Social History Observation [...] Are you an other tobacco user? No Problems Problem Type SNOMED Code ICD Code Onset Dates Problem Status W/U Status Risk Notes Problem Pain in left foot (820124858650307) Pain in left foot (M79.672) Active confirmed Problem Localized, primary osteoarthritis of the ankle and/or foot (896027267) Primary osteoarthrit is, left ankle and foot (M19.072) Active confirmed Problem Acquired hallux rigidus (7632394) Hallux rigidus, left foot (M20.22) Active confirmed Problem Acquired hammer toe of right foot (4327200969756978) Other hammer toe(s) (acquired), right foot (M20.41) Active confirmed Problem Acquired hammer toe of left foot (3035946950816537) Other hammer toe(s) (acquired), left foot (M20.42) Active confirmed Problem Acquired hallux rigidus (2140153) Hallux rigidus, right foot (M20.21) Active confirmed Vital Signs Blood pressure diastolic 80 mm Hg 04/03/2024 Height 5 ft 7 in in 04/03/2024 Blood pressure systolic 130 mm Hg 04/03/2024 Weight 178 lbs 04/03/2024 BMI 27.88 kg/m2 04/03/2024 Encounters Encounter Location Date Provider Diagnosis [facility] [address] [address] 04/03/2024 José Miguel Crooks Other hammer toe(s) [...] foot (ICD-10 - M20.22) Plan Of Treatment Pending Test Test Name Order Date X ray : Foot, left 2V 05/14/2012 X ray : Foot, left 2V 07/16/2012 X ray : Foot, left 2V 07/25/2012 X ray : Foot, left 2V 08/08/2012 X ray : Foot, right 2V 05/14/2012 X ray : Foot, left 3V 09/18/2018 X ray : Foot, left 3V 06/03/2019 X ray : Foot, left 3V 06/17/2019 X ray : Foot, left 3V 04/13/2015 X ray : Foot, left 3V 07/15/2019 X ray : Foot, left 3V 01/06/2020 X ray : Foot, left 3V 04/08/2021 X ray : Foot, right 3V 06/03/2019 X ray : Foot, right 3V 01/06/2020 X ray : Foot, right 3V 07/15/2019 X ray : Foot, right 3V 06/17/2019 X ray : Foot, right 3V 09/18/2018, J0702- INJECT or DRAIN, JOINT/BUR SA 04/08/2021, R3497-GYNYW/INJECT, JOINT/BURSA 1 09/12/2021 52418, H0115-RVQME/INJECT, JOINT/BURSA 0 03/15/2021, X3492-JXFCC/INJECT, JOINT/BURSA 1 09/14/2018 85980, E9516-DNKXJ/INJECT, JOINT/BURSA 0 09/18/2018 68358, J0702- Neuroma/Injection 04/13/20 15 17938, J0702- Neuroma/Injection 05/13/20 15 16425, J0702- Neuroma/Injection 03/16/20 16 Insurance Providers Payer Name Payer Address Payer Phone Subscriber Number Group Number Insured Name Patient Relationship to Insured Coverage Start Date Coverage End Date Medicare [employer] [facility] [employer] [address] [place] [address] [id number] Sada Mera Self - patient is the insured [employer] [address] [place] [address] [id number] Sada Mera Self - patient is the insured Medical (General) History Medical History History ICD Code Arthritis Cholesterol high blood pressure chicken pox Surgical History Surgery Date(Month/Year) hysterectomy apr 2007 hammer toe 07/12/2012 arthroscopic knee surgery right knee 2017 cataract surgery 04/2018 Breast Surgery-lumpectomy 12/2018 HT L 4th R4,5, Exotosis R5 DIPJ, Skin le elisha R ft 05/30/2019 Hospitalization History Reason Date(Month/Year) Arthrocopic knee surgery, right 05/2018
== END 2024-07-31 13:16 | disposition home or self-care (01) ==
PROVIDERS: PCP Internal Medicine; Visit Provider Internal Medicine
DX: Z00.00 Encounter for general adult medical examination without abnormal findings (principal); I10 Essential (primary) hypertension; E78.5 Hyperlipidemia, unspecified

== ENCOUNTER → 2024-07-31 12:46 | Outpatient (BNVA) | payer MEDICARE, SELFPAY | PROVIDERS: PCP Internal Medicine; Visit Provider Internal Medicine | DX: Z00.00 Encounter for general adult medical examination without abnormal findings (principal); I10 Essential (primary) hypertension; E78.5 Hyperlipidemia, unspecified | CPT/HCPCS: 90471; 96127 ==

== ENCOUNTER 2024-08-06 09:02 | Outpatient (REF) | payer MEDICARE, SELFPAY ==
[2024-08-06 11:36] LABS: Cholesterol 152 mg/dL (<200); HDL Cholesterol 53 mg/dL (>40); LDL Cholesterol Calculated 77 mg/dL (<100); Triglycerides 113 mg/dL (<150)
== END 2024-08-06 09:03 | disposition home or self-care (01) ==
LOC: HO.LAB 09:02
PROVIDERS: PCP Internal Medicine; Visit Provider Internal Medicine
DX: Z13.220 Encounter for screening for lipoid disorders (principal); Z13.6 Encounter for screening for cardiovascular disorders
CPT/HCPCS: 36415; 80061

== ENCOUNTER 2024-10-09 11:32 | Outpatient (AMB) | payer MEDICARE, SELFPAY ==
[2024-10-09 12:13] VITALS: BP 128/76; PULSE 60; RESP 18; TEMP 37; O2SAT 97; BMI 28.4
--- NOTE | 2024-10-09 12:13 | AM.OFFWIN_ITS ---
Intake Vital Signs 10/09/24 12:13 Height 5 ft 6 in Weight 176 lb BMI 28.4 BP 128/76 Blood Pressure Location Lt brachial Position Sitting Respiration 18 Pulse 60 Pulse Source Pulse Oximeter Temp 98.6 F Temp Source Oral Pulse Oximetry (%) 97 Oxygen Delivery Method Room Air Intake Visit Reasons: EP-?sinus infection Intake Note: Pt is here today for a walk in visit. Pt c/o sinus pain and pressure congestion a lot of mucus, eyes crusty. Patient Tobacco Use Status: Never used Tobacco Allergies chlorhexidine [CHLORAPREP] Allergy (Mild, Verified 10/09/24 12:17) RASH cephalexin [Keflex] Allergy (Unknown, Verified 10/09/24 12:17) GI upset HPI HPI Comments History of Present Illness Details She presents to office with concern for sinus infection Ongoing x 4 days She said worsening eye crusting discharge in the morning She said feels in head and not in lungs No fever or chills She has hoarse voice in am She denies pain in lface She said no ear pain or ST + fatigue without body aches She took OTC sinus symptoms without relief PFSH Medical History Hemochromatosis Thrombocytopenia Fatty liver Breast cancer Endometrial carcinoma Panic disorder Hyperlipidemia Hypertension Primary osteoarthritis of left knee Primary osteoarthritis of right knee Surgical History History of colonoscopy (~02/03/23) History of lumpectomy of left breast History of cataract surgery History of liver biopsy History of foot surgery History of hysterectomy Family History Father Lung cancer Smoker Mother Osteoarthritis Bone cancer Maternal Aunt Osteoarthritis Social History Housing: House Alcohol intake: current Alcohol intake frequency: 0-2 drinks per day Patient Tobacco Use Status: Never used Tobacco e-Cigarette/Vaping Use: Never Used Second Hand Smoke Exposure: No service: No Current occupational status: employed 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 Cognitive needs: No Hearing needs: No Vision needs: Yes Review of Systems Const Denies body aches, Denies chills, Reports fatigue, Denies fever(s) and Denies headache(s) Eyes Denies blurry vision, Denies change in vision, Denies diplopia, Reports eye discharge and Reports irritation ENT Denies dizziness, Denies otalgia, Denies headache(s), Reports nasal congestion, Reports post nasal drip, Denies sinus pain, Denies sinus pressure and Denies sore throat Card Denies chest pain and Denies dyspnea Resp Denies cough and Denies dyspnea Musc Denies myalgias Neuro Denies dizziness and Denies headache(s) Endo Reports fatigue Physical Exam Vital Signs: Last Vital Signs Temp 98.6 F 10/09/24 12:13 Pulse 60 10/09/24 12:13 Resp 18 10/09/24 12:13 BP 128/76 10/09/24 12:13 Pulse Ox 97 10/09/24 12:13 Oxygen Delivery Method Room Air 10/09/24 12:13 BMI result Body Mass Index 28.4 General: Non-toxic, NAD. Speaking full sentences. Skin: Warm dry throughout Eye: EOMI HENT: Airway patent. Uvula midline. No pharyngeal erythema or edema. No TECHNICAL ADJUSTER. Bilateral canals clear. TM non-erythematous, non-bulging. No TM perforation or hemotympanum noted. No frontal or maxillary sinus ttp Respiratory: CTA bilaterally. No wheezes, rales or rhonchi Cardiac: RRR. No murmur Neurology: Alert. No aphasia or facial droop. Gait without abnormality Psych: Good mood and affect Assessment & Plan Assessment & Plan (1) Viral sinusitis: Code(s): J32.9 - Chronic sinusitis, unspecified; B97.89 - Other viral agents as the cause of diseases classified elsewhere Plan: Patient seen and evaluated. Symptoms appear consistent iw viral sinusitis as there is no sinus ttp and symptoms only present x 4 days Will trial nasal steroid Increase fluids/rest Call with concerns Patient gave verbal understanding and had no additional questions or concerns at time of discharge All questions answered Medications: New ipratropium bromide administer into each nostril 2 sprays intranasal BID-TID PRN 30 mL 0RF allergy symptoms Coding Level of Care Code Est Pt Level 3 (92887) Diagnoses Viral sinusitis J32.9; B97.89
--- OUTSIDE RECORDS SUMMARY | 2024-10-09 13:24 | XMS_ITS | Patient Health Record ---
Author Organization [facility] Address [address] [place] [address] Care Team Providers Care Levee Superintendent Name Role Phone Ciaran Carlos MD Primary Care Provider José Miguel Montaño Unavailable [phone] Allergies Allergen (clinical drug ingredient) Drug/Non Drug [...] Risk Notes Problem Pain in left foot (910417857944361) Pain in left foot (M79.672) Active confirmed Problem Localized, primary osteoarthritis of the ankle and/or foot (397202116) Primary osteoarthrit is, left ankle and foot (M19.072) Active confirmed Problem Acquired hallux rigidus (3377805) Hallux rigidus, left foot (M20.22) Active confirmed Problem Acquired hammer toe of right foot (7749235792984752) Other hammer toe(s) (acquired), right foot (M20.41) Active confirmed Problem Acquired hammer toe of left foot (5696586372707974) Other hammer toe(s) (acquired), left foot (M20.42) Active confirmed Problem Acquired hallux rigidus (9971075) Hallux rigidus, right foot (M20.21) Active confirmed Vital Signs Blood pressure diastolic 80 mm Hg 04/03/2024 Height 5 ft 7 in in 04/03/2024 Blood pressure systolic 130 mm Hg 04/03/2024 Weight 178 lbs 04/03/2024 BMI 27.88 kg/m2 04/03/2024 Encounters Encounter Location Date Provider Diagnosis [facility] [address] [address] 04/03/2024 José Miguel Crooks Other hammer toe(s) [...] J0702- INJECT or DRAIN, JOINT/BUR SA 04/08/2021, N7750-JOBUY/INJECT, JOINT/BURSA 1 09/12/2021 60064, X9165-NYJGV/INJECT, JOINT/BURSA 0 03/15/2021, J2018-KFNJR/INJECT, JOINT/BURSA 1 09/14/2018 66666, J1482-HQFEK/INJECT, JOINT/BURSA 0 09/18/2018 01805, J0702- Neuroma/Injection 04/13/20 15 84810, J0702- Neuroma/Injection 05/13/20 15 41917, J0702- Neuroma/Injection 03/16/20 16 Insurance Providers Payer Name Payer Address Payer Phone Subscriber Number Group Number Insured Name Patient Relationship to Insured Coverage Start Date Coverage End Date Medicare National [facility] [employer] [address] [place] [address] [id number] Sada Mera Self - patient is the insured [employer] [address] [place] [address] [id number] Sada Mera Self - patient is the [...]
--- OUTSIDE RECORDS SUMMARY | 2024-10-09 13:24 | XMS_ITS | Data Portability ---
Author Organization [place] - [facility], [facility]- Address [address] [place] [address] Assessment Encounter Date Assessment Date Assessment LastModified [...] DO Not Attach Compendium, Do Not Delete/merge, [id number] 08:08:48 XR, knee 024 10/02/19 24 [email or web address] In-Office Order, Internal Use Only DO Not Attach Compendium DO Not Attach Compendium, Do Not Delete/merge, [id number] 15:52:00 Medication Orders None record ed. Patient TargetsNo targets recorded. Patient Instructions Encounter Date Encounter Id Patient Instructions Last Modified By Organization Details Last Modified Time 04/21/2023 [id number] X-rays of both k nees demonstrate significant [...] They are going to go down to [place] for the winter, and when they return [...] DO Not Attach Compendium, Do Not Delete/merge, [id number] 04/21/2023 10:39:03 04/21/20 23 03/15/2018 MRI, knee, w/o contr ast No observ ation record ed. [email or web address] Not Available 2022 11:17:07 04/21/20 23 10/28/2022 MRI, knee, w/o contr ast No observ ation record ed. [email or web address] Not Available 2022 11:17:48 10/02/19 24 XR, knee No observ ation record ed. [email or web address] In-Office Order Internal Use Only DO Not Attach Compendium DO Not Attach Compendium, Do Not Delete/merge, [id number] 10/02/2023 10:21:33 Result Notes None recorded. Procedures Surgical History Date Name Laterality Status Provider Name and Address Organization Details Recorded Time 4 (SAS) Knee Cortisone Injection completed Alfredo Jade MD [address] [place], [address], [facility] 10/02/2023 10:33:34 3 (SAS) Knee Cortisone Injection completed Alfredo Jade MD [address] [place], [address], [facility] 04/21/2023 10:50:10 Imaging Results Imaging Date Name Status LastModified by Organiz ation Details LastModified Time 04/21/2023 XR, knee completed [email or web address] In-Office Orde r Internal Use Only DO Not Attach Compendium DO Not Attach Compendium, Do Not Delete/merge, [id number] 04/21/2023 10:39:03 03/15/2018 MRI, knee, w/o contrast completed Information not available 04/21/2023 11:17:07 10/28/2022 MRI, knee, w/o contrast completed [email or web address] Information not available 04/21/2023 11:17:48 10/02/2023 XR, knee completed [email or web address] In-Office Orde r Internal Use Only DO Not Attach Compendium DO Not Attach Compendium, Do Not Delete/merge, [id number] 10/02/2023 10:21:33 Procedure Notes None recorded. Medical [...] Details Last Updated DateTime 04/21/2023 167.64 cm 86636.81 g alejo payan [place] - [facility] 04/21/2023 10:18:09 Date Recorded Body height Body mass index (BMI) Body weight Provider Name and Address Organization Details Last Updated DateTime 10/02/2023 167.64 cm 29.4 kg/m2 20559.81 g Radha Aubrey h [place] - [facility] 10/02/2023 09:59:31 Social History Question Answer Notes LastModified by Organizat ion Details LastModified Time Tobacco Smoking Status Never Smoker alejo payan quintin [place] - [facility] 04/21/2023 10:19:10 What Is Your Level Of Alcohol Consumption? None [email or web address] Information not available 04/21/2023 What Was The Date Of Your Most Recent Tobacco Screening? 04/21/2023 [email or web address] Information not available 04/21/2023 Do You Use Any Illicit Or Recreational Drugs? No [email or web address] Information not available 04/21/2023 Do You Or Have You Ever Used Any Other Forms Of Tobacco Or Nicotine? No [email or web address] Information not available 04/21/2023 Sex: Unknown Functional Status None recorded. Mental Status None recorded. Family History Nothing Reported. Medical History Condition Response Coronary Artery Disease N HIV or AIDS N Gout N Lung Disease N Depression N Blood Clots N Pacemaker N Anxiety Disorder Y Arthritis Y Cancer Y Stroke N Leg or Foot Ulcers N Liver Disease Y Rheumatoid Arthritis N Kidney Disease N Migraines N Thyroid Problems N Anemia N Heart Attack ([place]) N Ulcers N Diabetes N Bleeding Disorder N Seizures/Epilepsy N Tuberculosis N Asthma N Peripheral Vascular Disease N GERD/Reflux N Hepatitis N Heart Disease N Pulmonary Embolism N Hypertension N Osteoporosis N Gynecological HistoryNo gynecological history recorded. Obstetrics History GPAL:G 0 P 0 0 0 0 Past Encounters Encounter ID Performer Location Encounter Start Date Encounter Closed Date Diagnosis/Indication Diagnosis SNOMED-CT Code Diagnosis ICD10 Code Diagnosis Note [id number] MD JD Mosher [address] [place] [address] 04/21/2023 09:58:38 04/21/2023 10:57:02 Osteoarthritis of right knee joint 9453445638 56011 M17.11 Osteoarthr itis of left knee joint 0657310070 91331 M17.12 [id number] MD JD Mosher [address] [place] [address] 10/02/2023 09:57:14 10/02/2023 10:45:44 Osteoarthritis of right knee joint 8645197333 56936 M17.11 Osteoarthr itis of left knee joint 6754443433 02621 M17.12 Health Concerns Section Related Observation LastModified by Organization Detai ls LastModified Time None Recorded Concern Status LastModified by Organization Details LastModified Time None Recorded Advance Directives Directive None Recorded Payers Encounter Date Sequence Insurance Name Policy Number Policy Luevano Covered Member ID Luevano Member ID Guarantor Name 04/21/2023 1 [place] [employer] Betty Mera [id number] Betty Mera 04/21/2023 2 [place] [id number] Betty Mera [id number] Betty Mera 10/02/2023 1 [place] [employer] Betty Mera [id number] Betty Mera 10/02/2023 2 [place] [id number] Betty Mera [id number] Betty Mera Notes Date Note Type Note Provider Name and Address Organization Details Recorded Time 04/21/2023 text/html A 72-year-old [place] man who is from the [facility] area, who has heard about us from other patients, who presents with bilateral history of knee arthritis. She has had x-rays and MRI scan. She has had cortisone shots, nonoperative measures with worsening pain and discomfort as of late. She is strongly considering surgical intervention. She is here today for second opinion, here today with her as well. Alfredo Jade MD [address] [place] [address], [phone], [facility] 04/22/2023 04:33:09 10/02/2023 text/html [...] improve pain and function. Alfredo Jade MD [address] [place] [address], [phone], [place] - [facility] 10/02/2023 10:37:18 OBGyn Episode No OBEpisode recorded.
--- OUTSIDE RECORDS SUMMARY | 2024-10-09 13:24 | XMS_ITS ---
[facility] Address [address] [place] [address] Care Team Providers Care Sales Professional Bilingual Name Role Phone Terrance SHULTZ, Ciaran Primary Care Provider José Miguel Montaño [phone] Allergies Allergen (clinical drug ingredient) Drug/Non Drug [...] 024 Encounters Encounter Location Date Provider Diagnosis [facility] [place] [address] [place] [address] 04/03/2024 José Miguel Crooks Other hammer toe(s) [...] additional injections may be necessary, LEFT 3rd [facility] Progress Notes * Sada HAYDENOB:1949 (73 yo F)Acc No.[id number]:04/03/2024 Progress Note Patient:?Sada Hayden Provider:?José Miguel Crooks DPM :1950???Age:73 Y???Sex:Female D ate:04/03/2024 Address:[address] [place] [phone] Pcp:Ciaran Carlos MD Subjective: * Chief Complaints: [...] M20.22? Plan: * Treatment: * Procedures:?Injection:?Sm. Joint, Bursa?09620, J0702 Injection #2 sm/med joint bursa/capsule 2cc [...] * Procedure Codes:?J0702 INJ B ETAMETHSN ACTAT&SOD [id number] DRAIN/INJECT, JOINT/BURSA, Modifiers: XS * Preventive Medicine:? [...] DPM Date:? 024 Generated for Nataliia romero/Kostas/eTbrendan on:?10/09/2024 01:24 PM EST History and Physical Notes * [...] person, place, and t keyur Vascular DP PULSES (B): 2/4, B/L PT PULSES (B): 2/4, B/L Heel Pain INSPECTION: pop posterior right heel at AT insertion
--- OUTSIDE RECORDS SUMMARY | 2024-10-09 13:24 | XMS_ITS ---
Author Organization [facility] Address [address] [place] [address] Care Team Providers Care Cad Intern Name Role Phone Terrance SHULTZ, Ciaran Primary Care Provider José Miguel Montaño [phone] Allergies Allergen (clinical drug ingredient) Drug/Non Drug [...] 023 Encounters Encounter Location Date Provider Diagnosis [facility] [address] [place] [address] 04/17/2023 José Miguel Crooks Other hammer toe(s) [...] Notes * Sada HAYDENOB:1949 (72 yo F)Acc No.[id number]:04/17/2023 Progress Note Patient:?Sada Hayden Provider:?José Miguel Crooks DPM :1950???Age:72 Y???Sex:Female D ate:04/17/2023 Address:[address] [place], [place] [phone] Pcp:Ciaran Carlos MD Subjective: * Chief Complaints: [...] * Procedure Codes:?J0702 INJ B ETAMETHSN ACTAT&SOD [id number] DRAIN/INJECT, JOINT/BURSA, Modifiers: XS * Preventive Medicine:? [...] have encouraged the patient to call the [facility] .? * Follow Up:?prn * Images: * Sign off status: Completed true * Provider:?José Miguel Crooks DPM Date:? 023 Generated for Nataliia romero/Kostas/Ghulam on:?10/09/2024 01:24 PM EST History and Physical [...]
--- OUTSIDE RECORDS SUMMARY | 2024-10-09 13:25 | XMS_ITS | Continuity of Care Document ---
Author Organization [facility], NARENDRA [address] floor Address [address] [place] [address] Care Team Providers Care Outboard Technician Name Role Phone PAPI OWUSU Referring Provider [phone] PAPI OWUSU Primary Care Provider [phone] Assessment No assessment recorded. Plan of Treatment Reminders Order Date Submit Date Provider Last Modified By Organization Details Last Modified Time Details Appointments RECHECK 10 2024 01:50P M Holland Lu MD Not available Not available Not available Lab None recorded . Referral None recorded . Procedures None recorded . Surgeries None recorded . Imaging None recorded . Medication Orders None recorded . Patient TargetsNo targets recorded. Patient InstructionsNo instructions recorded. Reason for Referral None Reported. Problems Name Problem SNOMED Code Status Onset Date Resolution Date Notes Provider Name and Address Organization Details Recorded Time Osteoarthr itis of left knee joint 4692369724267 09 Active 2023 Holland Lu MD [address], [place], [address] , [facility] 4 13:02:59 Bilateral osteoarthr itis of knees 4028998550535 07 Active 2023 Holland Lu MD [address], [place], [address] , [facility] 4 13:03:00 Osteoarthr itis of right knee joint 2439286934029 00 Active 2023 Holland Lu MD [address], [place], [address] , [facility] 4 13:03:15 Problem Notes None recorded. Procedures Surgical History Date Name Laterality Status Provider Name and Address Organization Details Recorded Time 07/12/20 06990 Therapeutic Exercise (1:1) completed Rajni Lynn PTA [address], [place], [address], [facility] 07/12/2024 10:57:29 07/12/20 53635: Manual therapy completed Rajni Lynn PTA [address], [place], [address], [facility] 07/12/2024 10:57:29 07/10/20 44751 Therapeutic Exercise (1:1) completed Rajni Lynn PTA [address], [place], [address], [facility] 07/10/2024 12:02:38 07/10/20 97010: Manual therapy completed Rajni Lynn PTA [address], [place], [address], [facility] 07/10/2024 07:58:41 07/05/20 42495 Therapeutic Exercise (1:1) completed Rajni Lynn PTA [address], [place], [address], [facility] 07/05/2024 11:00:21 07/05/20 69656: Manual therapy completed Rajni Lynn PTA [address], [place], [address], [facility] 07/05/2024 11:00:22 07/03/20 05613 Therapeutic Exercise (1:1) completed Rajni Lynn PTA [address], [place], [address], [facility] 07/03/2024 07:51:19 07/03/20 91277: Manual therapy completed Rajni Lynn PTA [address], [place], [address], [facility] 07/03/2024 07:51:19 06/28/20 08461 Therapeutic Exercise (1:1) completed Rajni Lynn, PRIZE JACKER [address], [place], [address], [facility] 06/28/2024 14:32:01 06/28/20 05030: Manual therapy completed Rajni Lynn, PRIZE JACKER [address], [place], [address], [facility] 2024 09:18:47 06/28/20 Sports Knee 4&1 completed Chago Rodriguez PA-C [address], [place], [address], [facility] 06/28/2024 12:32:42 06/26/20 44399 Therapeutic Exercise (1:1) completed Rajni Lynn, PRIZE JACKER [address], [place], [address], [facility] 06/26/2024 16:13:47 06/24/20 92203 Therapeutic Exercise (1:1) completed Yoselyn Lipscomb, PT [address], [place], [address], [facility] 06/24/2024 12:40:57 06/24/20 09766: Low complexity PT Eval completed Yoselyn Lipscomb, PT [address], [place], [address], [facility] 06/24/2024 12:40:57 06/24/20 G8417 BMI Above Upper Parameters, F/U Documented completed Yoselyn Lipscomb, PT [address], [place], [address], [facility] 06/24/2024 12:40:57 06/24/20 G8427 Current Medication Documented completed Yoselyn Lipscomb, PT [address], [place], [address], [facility] 06/24/2024 12:40:57 08/27/20 24 11671 Therapeutic Exercise (1:1) completed Yoselyn Lipscomb, PT [address], [place], [address], [facility] 04/23/2024 15:00:55 04/23/20 24 98351: Low complexity PT Eval completed Yoselyn Lipscomb, PT [address], [place], [address], [facility] 04/23/2024 15:00:58 04/23/20 24 G8417 BMI Above Upper Parameters, F/U Documented completed Yoselyn Lipscomb, PT [address], [place], [address], [facility] 04/23/2024 15:00:51 04/23/20 24 G8427 Current Medication Documented completed Yoselyn Lipscomb, PT [address], [place], [address], [facility] 04/23/2024 15:00:49 03/22/20 24 Knee Kenalog 1cc L/R completed Holland Lu MD [address], [place], [address], [facility] 03/22/2024 13:03:31 03/20/20 24 11150 Therapeutic Exercise (1:1) completed Rajni Lynn, PRIZE JACKER [address], [place], [address], [facility] 03/21/2024 10:27:18 03/15/20 53748 Therapeutic Exercise (1:1) completed Yoselyn Lipscomb, PT [address], [place], [address], [facility] 03/15/2024 09:55:16 03/13/20 24967 Therapeutic Exercise (1:1) completed Yoselyn Lipscomb, PT [address], [place], [address], [facility] 03/13/2024 12:29:15 03/07/20 47385 Therapeutic Exercise (1:1) completed Rajni Lynn, PRIZE JACKER [address], [place], [address], [facility] 03/07/2024 10:15:39 03/05/20 24 96835 Therapeutic Exercise (1:1) completed Rajni Lynn, PRIZE JACKER [address], [place], [address], [facility] 03/05/2024 09:49:05 02/27/20 24 36363 Therapeutic Exercise (1:1) completed Yoselyn Lipscomb, PT [address], [place], [address], [facility] 02/27/2024 12:27:42 02/22/20 28654 Therapeutic Exercise (1:1) completed Yoselyn Lipscomb, PT [address], [place], [address], [facility] 02/22/2024 13:07:13 02/20/20 24 89547 Therapeutic Exercise (1:1) completed Yoselyn Lipscomb, PT [address], [place], [address], [facility] 02/20/2024 13:20:34 02/20/20 24 54014: Low complexity PT Eval completed Yoselyn Lipscomb, PT [address], [place], [address], [facility] 02/20/2024 13:20:37 02/20/20 24 G8417 BMI Above Upper Parameters, F/U Documented completed Yoselyn Lipscomb, PT [address], [place], [address], [facility] 02/20/2024 13:20:25 02/20/20 24 G8427 Current Medication Documented completed Yoselyn Lipscomb, PT [address], [place], [address], [facility] 02/20/2024 13:20:28 Imaging Results None recorded. Procedure Notes None recorded. Medical Equipment None Reported. Allergies Allergen ID Allergen Name Allergen Category Reaction Reaction Severity Criticality Documentation Date Start Date Code Code System Note Provider Name and Address Organization Details Recorded Time 882037 Keflex medicatio n Not available Not available Not available 02/02/202411283 7 RxNorm NUBIA DUVAL [facility] 4 08:50:08 285350 ChloraPre p medicatio n Not available Not available Not available 02/02/2024 37755 9 RxNorm NUBIA DUVAL [facility] 4 08:50:41 Medications Name Sig Start Date Stop Date Status Note LastModified by Organization Details LastModified Time anastrozole 1 mg tablet TAKE 1 TABLET BY MOUTH EVERY DAY active Not Available Not Available No t Available clindamycin HCl 300 mg capsule TAKE 2 CAPSULES BY MOUTH ONE HALF HOUR PRIOR TO DENTAL PROCEDURE active Not Available Not Available No t Available tretinoin 0.025 % topical cream APPLY DAILY AT BEDTIME TO FACE FOR PHOTOAGING. active Not Available Not Available Not Available ondansetron HCl 4 mg tablet TAKE 1 TABLET BY MOUTH THREE TIMES A DAY FOR 7 DAYS active Not Available Not Available N ot Available valsartan 80 mg tablet TAKE 1 TABLET BY MOUTH EVERY DAY active Not Available Not Available No t Available sulfamethoxa zole 800 mg-trimethop rim 160 mg tablet TAKE 1 TABLET BY MOUTH TWICE A DAY FOR 10 DAYS active Not Available Not Available No t Available tramadol 50 mg tablet TAKE 1 TO 2 TABLETS BY MOUTH EVERY 6 HOURS NEEDED FOR PAIN active Not Available Not Available No t Available amoxicillin 875 mg tablet TAKE 1 TABLET BY MOUTH TWICE A DAY DIRECTED UNTIL FINISHED START 1 DAY BEFORE SURGERY active Not Available Not Available No t Available aspirin 325 mg tablet,delay ed release TAKE 1 TABLET BY MOUTH TWICE A DAY active Not Available Not Available No t Available pantoprazole 40 mg tablet,delay ed release TAKE 1 TABLET BY MOUTH EVERY DAY FOR 30 DAYS active Not Available Not Available No t Available ursodiol 300 mg capsule TAKE 2 CAPSULES BY MOUTH TWICE A DAY active Not Available Not Available No t Available docusate sodium 100 mg capsule TAKE 1 CAPSULE BY MOUTH TWICE A DAY FOR 30 DAYS active Not Available Not Available No t Available hydrochlorot hiazide 25 mg tablet TAKE 1 TABLET BY MOUTH EVERY DAY NEEDED FOR HYPERTENSIO N active Not Available Not Available No t Available lorazepam 1 mg tablet TAKE 1 TABLET BY MOUTH EVERY DAY AT BEDTIME NEEDED FOR ANXIETY active Not Available Not Available No t Available scopolamine 1 mg over 3 days transdermal patch APPLY 1 PATCH TRANSDERMAL LY EVERY 3 DAYS NEEDED FOR NAUSEA AND VOMITING active Not Available Not Available No t Available atenolol 50 mg tablet TAKE 1 TABLET BY MOUTH EVERY DAY active Not Available Not Available No t Available naproxen 500 mg tablet TAKE 1-2 TABLETS BY MOUTH DAILY WITH FOOD active Not Available Not Available No t Available oxycodone 5 mg tablet TAKE 1 TABLET BY MOUTH EVERY 4 HOURS FOR 7 DAYS active Not Available Not Available No t Available rosuvastatin 5 mg tablet TAKE 1 TABLET BY MOUTH EVERY DAY active Not Available Not Available No t Available nitrofuranto in monohydrate/ macrocrystal s 100 mg capsule TAKE 1 CAPSULE BY MOUTH EVERY 12 HOURS WITH FOOD FOR 5 DAYS active Not Available Not Available N ot Available chlorhexidin e gluconate 0.12 % mouthwash PLEASE SEE ATTACHED FOR DETAILED DIRECTIONS active Not Available Not Available N ot Available Crestor active Not Available Not Avail able Not Available bimatoprost 0.03 % drops with applicator, eyelash base APPLY ONE DROP AT BEDTIME TO UPPER EYELASHES AND EYEBROWS active Not Available Not Available No t Available Eliquis 2.5 mg tablet TAKE 1 TABLET BY MOUTH TWICE A DAY active Not Available Not Available No t Available EC-Naproxen EC-Naproxen 500MG Tablet Delayed Release 2021 active Statu s: 'Curr ent'; Not Available Not Available Not Available Vitals Date Recorded Body height Body mass index (BMI) Body weight Provider Name and Address Organization Details Last Updated DateTime 10/04/2024 165.1 cm 30 kg/m2 64488.63 g Yajaira Velazquez [facility] 10/04/2024 13:28:56 Social History Question Answer Notes LastModified by Organizat ion Details LastModified Time Tobacco Smoking Status Never Smoker Jimena ribeiro [place] - [place] [facility] 06/28/2024 11:02:18 How Many Times Per Week Do You Consume Alcohol? Less Than 1 Time Per Week [email or web address] Information not available 06/28/2024 Do You Or Have You Ever Used E-cigarettes Or Vape? Never Used Electronic Cigarettes [email or web address] Information not available 06/28/2024 What Is Your Relationship Status? [email or web address] Information not available 06/28/2024 Do You Use Any Illicit Or Recreational Drugs? No Information not available 06/28/2024 How Many Years Have You Smoked Tobacco? 0 [email or web address] Information not available 06/28/2024 Do You Or Have You Ever Used Any Other Forms Of Tobacco Or Nicotine? No [email or web address] Information not available 06/28/2024 Sex: Unknown Functional Status None recorded. Mental Status None recorded. Family History Nothing Reported. Medical History Condition Response Arthritis Y Cancer Y Hypertension Y Gynecological HistoryNo gynecological history recorded. Obstetrics History GPAL:G 0 P 0 0 0 0 Past Encounters Encounter ID Performer Location Encounter Start Date Encounter Closed Date Diagnosis/Indication Diagnosis SNOMED-CT Code Diagnosis ICD10 Code Diagnosis Note [id number] [facility] [address] [place] [address] 10/04/2024 13:24:34 10/04/2024 13:55:25 Osteoarthritis of right knee joint 2488239279 11658 M17.11 You have been provided with a cortisone injection in order to reduce the pain and inflammati on that you are experienci ng. The injection consists of two medication s. Cortisone (an anti-infla mmatory that will take 48-72 hours to take effect) and Lidocaine (a numbing agent that will last 2-3 hours). Please note that not everyone will have a lasting response following the injection. PATIENT INSTRUCTIO NSOnce the Lidocaine wears off, you may have an increase in your pain. I recommend icing the affected area for 20 minutes 3-4 times per day.It is recommende d that you refrain from any high level activities using the joint or limb that was injected for approximat tomy 24-48 hours. Normal day-to-day activities are generally not a problem.PO SSIBLE SIDE EFFECTSInd ividuals with dark complexion s may experience some skin discolorat ion locally at the site of the injection. There is the possibilit y of an increase in discomfort within 48 hours following the injection. This is called a ? f lare? . To help minimize the chances of this, please see the post-injec tion instructio ns above.Ther e is a less than 1% chance of an infection. If you notice any signs of infection (redness, warmth, drainage, fever greater than 100 degrees) please call our office or contact us through the portal [place]. Health Concerns Section Related Observation LastModified by Organization Detai ls LastModified Time None Recorded Concern Status LastModified by Organization Details LastModified Time None Recorded Payers Encounter Date Sequence Insurance Name Policy Number Policy Luevano Covered Member ID Luevano Member ID Guarantor Name 10/04/2024 2 [place] [id number] Sada Mera [id number] Sada Mera 10/04/2024 1 [place] [employer] Betty Mera [id number] Sada Mera Notes Date Note Type Note Provider Name and Address Organization Details Recorded Time 10/04/2024 text/html I am seeing the patient today under the supervision of {{Dr. Noa Pittman#}} who was available but who did not see the patient. HPI: Patient comes in for recheck of {{right* left bilate ral}} knee pain. Has known osteoarthritis in the medial compartment of the knee(s). Been treated conservatively with cortisone injection to this point with {{ 10#}} weeks relief of symptoms. No new injury or modalities. Past family, medical, social history and review of systems has been reviewed, updated and is located in the patient? s chart. Examination:The patient is well appearing and in no apparent distress. Alert and oriented x3. Vital signs per intake sheet. Examination of the {{right* left bilate ral}} knee reveals no effusion erythema or warmth. Decreased range of motion. Lower extremity varus deformity. Point tender over the medial joint line. Calf soft and nontender. 4+/5 strength of knee flexion extension. Impression: Osteoarthritis Plan: Nature of the diagnosis discussed with the patient today. Both surgical and nonsurgical options were reviewed. This point recommend a repeat cortisone injection. Patient agreed. {{anterior medial anterior lateral* Superior Lateral}} portal was used. See Procedure note. Follow-up with us in 3 months for discussion of continued conservative management versus total joint arthroplasty. Chago Rodriguez PA-C [address], [place], [address], [facility] - [place] [facility] 10/04/2024 13:55:22 OBGyn Episode No OBEpisode recorded.
== END 2024-10-09 12:42 | disposition home or self-care (01) ==
PROVIDERS: PCP Internal Medicine; Visit Provider Physician Assistant
DX: J32.9 Chronic sinusitis, unspecified (principal); B97.89 Other viral agents as the cause of diseases classified elsewhere

== ENCOUNTER → 2024-10-09 11:32 | Outpatient (BNVA) | payer MEDICARE, SELFPAY | PROVIDERS: PCP Internal Medicine | DX: J32.9 Chronic sinusitis, unspecified (principal); B97.89 Other viral agents as the cause of diseases classified elsewhere | CPT/HCPCS: 99212 ==

== ENCOUNTER 2025-01-21 14:30 | Outpatient (AMB) | payer MEDICARE, SELFPAY ==
--- OUTSIDE RECORDS SUMMARY | 2025-01-21 14:33 | XMS_ITS | Data Portability ---
Author Organization [place] - [facility], [facility]- Address [address] [place] [address] Assessment Encounter Date Assessment Date Assessment LastModified [...] Surgeries None record ed. Imaging XR, knee 024 10/02/19 24 candida 5 In-Office Order, Internal Use Only DO Not Attach Compendium DO Not Attach Compendium, Do Not Delete/merge, [id number] 15:52:00 XR, knee 023 04/21/20 23 [email or web address] In-Office Order, Internal Use Only DO Not Attach Compendium DO Not Attach Compendium, Do Not Delete/merge, [id number] 3 08:08:48 Medication Orders None record ed. Patient TargetsNo targets recorded. Patient Instructions Encounter Date Encounter Id Patient Instructions Last Modified By Organization Details Last Modified Time 04/21/2023 [id number] X-rays of both k nees demonstrate significant [...] They are going to go down to [place] for the winter, and when they return [...] DO Not Attach Compendium, Do Not Delete/merge, [id number] 04/21/2023 10:39:03 04/21/20 23 03/15/2018 MRI, knee, w/o contr ast No observ ation record ed. [email or web address] Not Available 2022 11:17:07 04/21/20 23 10/28/2022 MRI, knee, w/o contr ast No observ ation record ed. Not Available 2022 11:17:48 10/02/19 24 XR, knee No observ ation record ed. [email or web address] In-Office Order Internal Use Only DO Not Attach Compendium DO Not Attach Compendium, Do Not Delete/merge, [id number] 10/02/2023 10:21:33 Result Notes None recorded. Procedures Surgical History Date Name Laterality Status Provider Name and Address Organization Details Recorded Time 4 (SAS) Knee Cortisone Injection completed Alfredo Jade MD [address] [place], [address], [facility] 10/02/2023 10:33:34 3 (SAS) Knee Cortisone Injection completed Alfredo Jade MD [address] [place], [address], [facility] 04/21/2023 10:50:10 Imaging Results None recorded. Procedure Notes None [...] Updated DateTime 10/02/2023 167.64 cm 29.4 kg/m2 28606.81 g Radha sanders [place] [facility] 10/02/2023 09:59:31 Date Recorded Body height Body weight Provider Name and Address Organization Details Last Updated DateTime 04/21/2023 167.64 cm 18585.81 g alejo payan [place] [facility] 04/21/2023 10:18:09 Social History Question Answer Notes LastModified by [employer] Details LastModified Time Tobacco Smoking Status Never Smoker alejo ribeiro [place] - [facility] 04/21/2023 10:19:10 What Was The Date Of Your Most Recent Tobacco Screening? 04/21/2023 [email or web address] Information not available 04/21/2023 Sex: Unknown Functional Status Question Answer Note LastModified by [employer] Details LastModified Time Do you use any illicit or recreational drugs? No [email or web address] Information not available 04/21/2023 Do you or have you ever used any other forms of tobacco or nicotine? No [email or web address] Information not available 04/21/2023 What is your level of alcohol consumption? None [email or web address] Information not available 04/21/2023 Mental Status None recorded. Family History Nothing Reported. Medical History Condition Response Coronary Artery Disease N HIV or AIDS N Gout N Lung Disease N Depression N Blood Clots N Pacemaker N Anxiety Disorder Y Arthritis Y Cancer Y Stroke N Leg or Foot Ulcers N Liver Disease Y Rheumatoid Arthritis N Kidney Disease N Migraines N Thyroid Problems N Anemia N Ulcers N Heart Attack ([place]) N Diabetes N Bleeding Disorder N Seizures/Epilepsy [...] SNOMED-CT Code Diagnosis ICD10 Code Diagnosis Note [id number] MD JD Mosher [address] [place] [address] 04/21/2023 09:58:38 04/21/2023 10:57:02 Osteoarthritis of right knee joint [id number] 80038 M17.11 Osteoarthr itis of left knee joint 7108941111 04256 M17.12 [id number] MD JD Mosher [address] [place] [address] 10/02/2023 09:57:14 10/02/2023 10:45:44 Osteoarthritis of right knee joint 6491669576 82931 M17.11 Osteoarthr itis of left knee joint 4728604362 30163 M17.12 Health Concerns Section Related Observation LastModified by Organization Detai ls LastModified Time None Recorded Concern Status LastModified by Organization Details LastModified Time None Recorded Advance Directives Directive None Recorded Payers Encounter Date Sequence Insurance Name Policy Number Policy Luevano Covered Member ID Luevano Member ID Guarantor Name 04/21/2023 1 [place] [employer] Betty Mera [id number] Betty Curtison 04/21/2023 2 [place] [id number] Betty Samaria [id number] Betty Curtison 10/02/2023 1 [place] [employer] Betty Mera [id number] Betty Mera 10/02/2023 2 [facility] [id number] Betty Mera [id number] Betty Mera Notes Date Note Type Note Provider Name and Address Organization Details Recorded Time 04/21/2023 text/html A 72-year-old [place] man who is from the [facility] area, who has heard about us from other patients, who presents with bilateral history of knee arthritis. She has had x-rays and MRI scan. She has had cortisone shots, nonoperative measures with worsening pain and discomfort as of late. She is strongly considering surgical intervention. She is here today for second opinion, here today with her as well. Alfredo Jade MD [address] [place] [address], [address], [facility] 04/22/2023 04:33:09 10/02/2023 [...] improve pain and function. Alfredo Jade MD [address] [place] [address], [address], [facility] 10/02/2023 10:37:18 OBGyn Episode No OBEpisode recorded.
[2025-01-21 14:34] VITALS: BP 164/80; PULSE 68; TEMP 36.2; O2SAT 98; BMI 28.4
--- NOTE | 2025-01-21 14:34 | MHC.PC.OV ---
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 Laundry Required: No Accompanied by: Self / Same As Patient Allergies chlorhexidine [CHLORAPREP] Allergy (Mild, Verified 01/21/25 15:01) RASH cephalexin [Keflex] Allergy (Unknown, Verified 01/21/25 15:01) GI upset Medication List - Last Reconciled 01/21/25 by ROSY Nj aspirin 81 mg PO DAILY atenolol 50 mg PO DAILY cholecalciferol (vitamin D3) 50 mcg PO DAILY epinephrine (EpiPen 2-Octavio) 0.3 mg (0.3 mL) IM Q4H PRN hydrochlorothiazide 25 mg PO DAILY PRN ipratropium bromide 2 sprays intranasal BID-TID PRN lorazepam 1 mg PO BEDTIME PRN naproxen 500 mg PO DAILY rosuvastatin 5 mg PO DAILY scopolamine base 1 patch transdermal Q3D PRN scopolamine base 1 patch transdermal Q3D PRN ursodiol 300 mg PO BID valsartan 80 mg PO DAILY 90 days Tobacco use date assessed: 01/21/25 Fall risk assessment: No Falls in past year Last assessed Fall Risk: 01/21/25 Dental Screening Dental Screen Date: 01/21/25 Did you have a dental visit in the last 12 months?: Yes Did you have a dental problem in the last 6 months where you did not have access to dental care?: No Was dental information given to patient?: Patient has dentist HPI [facility] Discharge follow up Headaches HPI Details The patient is a 74-year-old female presenting with referral requests for both neurovascular narrowing and ear blockage. Dizziness began in November, with a significant episode leading to ER visits. Subsequent imaging pointed to vascular narrowing, with no stroke evident. Earlier in October, the patient contracted Influenza B, resulting in ear blockage and prolonged anosmia and ageusia, neither improving significantly over weeks. Attempts to see ENT specialists for ear concerns have been impeded by appointment delays. She seeks guidance on addressing both neurovascular and ENT issues effectively. [facility] Medical History Hemochromatosis Thrombocytopenia Fatty liver Breast cancer Endometrial carcinoma Panic disorder Hyperlipidemia Hypertension Primary osteoarthritis of left knee Primary osteoarthritis of right knee Surgical History History of colonoscopy (~02/03/23) History of lumpectomy of left breast History of cataract surgery History of liver biopsy History of foot surgery History of hysterectomy Family History Father Lung cancer Smoker Mother Osteoarthritis Bone cancer Maternal Aunt Osteoarthritis Social History Housing: House Alcohol intake: current Alcohol intake frequency: 0-2 drinks per day Patient Tobacco Use Status: Never used Tobacco e-Cigarette/Vaping Use: Never Used Second Hand Smoke Exposure: No service: No Current occupational status: employed 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 1. Little interest or pleasure in doing things: not at all 2. Feeling down, depressed, or hopeless: not at all 3. Trouble falling or staying asleep, or sleeping too much: not at all 4. Feeling tired or having little energy: not at all 5. Poor appetite or overeating: not at all 6. Feeling bad about yourself - or that you are a failure or have let yourself or your family down: not at all 7. Trouble concentrating on things, such as reading the newspaper or watching television: not at all 8. Moving or speaking so slowly that other people could have noticed. Or the opposite - being so fidgety or restless that you have been moving around a lot more than usual: not at all 9. Thoughts that you would be better off or of hurting yourself in some way: not at all Total score: 0 Depression Screening Interpretation: Negative Depression Screening Done: Yes 81783 - PHQ-9 Billing: Yes Source: Developed by Drs. Serafin Flores, Christina Sheppard, Garry Perry and colleagues, with an educational adenike from [employer]. Thrive Questionnaire Date Thrive assessed: 01/20/25 I am a: Patient What is your living situation today?: I have a steady place to live Within the past 12 months, did the food you bought not last and you didn't have the money to get more?: Never true Within the past 12 months, did you worry whether your food would run out before you got money to buy more?: Never true Do you have trouble paying for medicines?: No Do you have trouble getting transportation to medical appointments?: No Do you have trouble paying your heating and electricity bill?: No Do you have trouble taking care of your child, family member or friend?: No Do you have trouble with day-to-day activities such as bathing, preparing meals, shopping, managing finances, etc.?: No Are you currently unemployed and looking for a job?: No Are you interested in more education?: No Please select the resources that you would like help with: None Currently or been in a relationship where the following occur: No concerns reported THRIVE Score: 0 AUDIT C Alcohol Use Questionnaire (AUDIT-C) 1. How often do you have a drink containing alcohol?: 2-4 times a month 2. How many drinks containing alcohol do you have on a typical day when you are drinking?: 1 or 2 3. How often do you have six or more drinks on one occasion?: Never Total Score: 2 ALMA-7 AMB Questionnaire ALMA-7 Date ALMA - 7 assessed: 01/21/25 Feeling nervous, anxious, or on edge: 0 = Not at all Not being able to stop or control worryin = Not at all Worrying too much about different things: 0 = Not at all Trouble relaxin = Not at all Being so restless that it is hard to sit still: 0 = Not at all Becoming easily annoyed or irritable: 0 = Not at all Feeling afraid as if something awful might happen: 0 = Not at all Total ALMA-7 score (0-4 normal; 5-9 mild; 10-14 moderate; 15-21 severe): 0 Source: Developed by Drs. Serafin Flores, Christina Sheppard, Garry Perry and colleagues, with an educational adenike from [employer]. ALMA-7 Assessment Billing ALMA-7 Assessment Tool: ALMA-7 Assessment 12627 Review of Systems Const Denies headache(s) Eyes Denies loss of vision ENT Denies vertigo, Reports dizziness (Resolved), Denies headache(s), Denies sore throat and Reports other (Lost of smell and taste) Card Denies chest pain, Denies leg edema and Denies lightheadedness Resp Denies cough, Denies hemoptysis and Denies wheezing GI Denies abdominal pain, Denies melena, Denies constipation, Denies diarrhea and Denies vomiting Denies urinary frequency, Denies dysuria and Denies urinary urgency Musc Denies numbness Neuro Denies Abnormal speech present, Denies behavioral changes, Denies vertigo, Reports dizziness (Resolved), Denies headache(s), Denies loss of vision, Denies memory loss and Denies numbness Psych Denies anxiety, Denies behavioral changes, Denies depression, Denies memory loss and Denies panic attacks Cong/Lymph Denies easy bleeding and Denies easy bruising Aller/Immun Denies wheezing Physical exam (Primary Care) Vital Signs: Last Vital Signs Temp 97.1 F 01/21/25 14:34 Pulse 68 01/21/25 14:34 BP 164/80 H 01/21/25 14:34 Pulse Ox 98 01/21/25 14:34 Oxygen Delivery Method Room Air 01/21/25 14:34 BMI result Body Mass Index 28.4 Tobacco/Smoking Status: Tobacco use Status Tobacco use date assessed 01/21/25 01/21/25 14:42 Patient Tobacco Use Status Never used Tobacco 01/21/25 14:35 e-Cigarette/Vaping Use Never Used 01/21/25 14:35 PHQ-9: PHQ-9 Score PHQ-9: Total score 0 01/22/25 14:33 Depression Screening Interpretation: Negative Thrive Assessment: Date of Thrive Assessment Date Thrive assessed 01/20/25 01/21/25 14:35 Currently or been in a relationship where the following occur: No concerns reported Const General: healthy appearing, no acute distress, alert and awake Nutritional Appearance: well nourished Orientation/consciousness: oriented to person, oriented to place and oriented to time HENMT Ears: TM normal on the left and Abnormal EAC present cerumen impaction on the right General nose exam: Normal nasal mucous membranes and turbinates present Eyes Conjunctivae: conjunctivae normal Sclerae: sclerae normal Pupils: Equal, round and reactive pupils present Neck Neck: Yes no lymphadenopathy and Yes no JVD Thyroid: Thyroid normal Carotids: no bruits Resp Effort & Inspection: normal respiratory effort and not tachypneic Auscultation: no crackles, no rales, no rhonchi and no wheezes Cardio Rate: regular rate Rhythm: regular rhythm Heart sounds: no murmurs and normal S1 and S2 GI Palpation (GI): Soft to palpation, nontender, no hepatomegaly and no splenomegaly Auscultation: normal bowel sounds Skin General skin exam: no rashes or lesions noted and dry skin Neuro General: oriented to person, oriented to place and oriented to time Cranial nerves: Yes Equal, round and reactive pupils present Speech: No Abnormal speech present Gait exam (Neuro): Normal gait present Motor exam (neuro): no tremor noted Extrem Right upper extremity: full ROM Left upper extremity: full ROM Right lower extremity: full ROM; no edema Left lower extremity: full ROM; no edema Psych Mental Status: mental status grossly normal Speech and movement: Normal speech and movement present Affect: normal affect Attitude: cooperative Thought process: Normal thought process present Coding Level of Care Code Est Pt Level 3 (81586) Diagnoses Right ear impacted cerumen H61.21 Unspecified disturbances of smell and taste R43.9 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 Start Debrox ear drops OTC as recommended and return for ear flush/cleaning. (2) Unspecified disturbances of smell and taste: Code(s): R43.9 - Unspecified disturbances of smell and taste Category: Medical Plan: Related to post upper respiratory illness. Explained to patient that this might take some time to resume back to her normal senses. 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 CTA showed severe left vertebral artery stenosis. We will refer the patient to neuro endovascular surgeon. Patient has a preference and would like to go to [facility] endovascular program. In addition, the patient symptom of dizziness was ruled to be most likely be BPPV given her upper respiratory tract infection weeks prior. Orders: Referrals Vascular Neurology Referral I65.02 - Occlusion and stenosis of left vertebral artery Medications: Refilled hydrochlorothiazide 25 mg PO DAILY PRN 90 tabs 3RF hypertension epinephrine (EpiPen 2-Octavio) 0.3 mg (0.3 mL) IM Q4H PRN 2 ea 3RF anaphylaxis lorazepam 1 mg PO BEDTIME PRN 30 tabs 0RF anxiety atenolol 50 mg PO DAILY 90 tabs 3RF
== END 2025-01-21 15:31 | disposition home or self-care (01) ==
LOC: HO.HMCH 14:31
PROVIDERS: PCP Internal Medicine
DX: H61.21 Impacted cerumen, right ear (principal); R43.9 Unspecified disturbances of smell and taste; I65.02 Occlusion and stenosis of left vertebral artery

== ENCOUNTER → 2025-01-21 14:30 | Outpatient (BNVA) | payer MEDICARE, SELFPAY | PROVIDERS: PCP Internal Medicine | DX: H61.21 Impacted cerumen, right ear (principal); R43.9 Unspecified disturbances of smell and taste; I65.02 Occlusion and stenosis of left vertebral artery | CPT/HCPCS: 96127; 99212 ==

== ENCOUNTER 2025-01-28 12:55 | Outpatient (AMB) | payer MEDICARE, SELFPAY ==
[2025-01-28 12:57] VITALS: BP 110/72; PULSE 68; O2SAT 98; BMI 28.3
--- NOTE | 2025-01-28 12:57 | MHC.PC.OV ---
Vital Signs 01/28/25 12:57 Height 5 ft 6 in Weight 175 lb 6 oz BMI 28.3 BP 110/72 Blood Pressure Location Lt brachial Position Sitting Pulse 68 Pulse Source Pulse Oximeter Pulse Oximetry (%) 98 Oxygen Delivery Method Room Air Intake Visit Reasons: ear cleaning with REZA Schmidt [employer] Specialist Required: No Accompanied by: Self / Same As Patient Allergies chlorhexidine [CHLORAPREP] Allergy (Mild, Verified 01/28/25 13:11) RASH cephalexin [Keflex] Allergy (Unknown, Verified 01/28/25 13:11) GI upset Medication List - Last Reconciled 01/28/25 by Roxana Gonzalez PA-C aspirin 81 mg PO DAILY atenolol 50 mg PO DAILY cholecalciferol (vitamin D3) 50 mcg PO DAILY epinephrine (EpiPen 2-Octavio) 0.3 mg (0.3 mL) IM Q4H PRN hydrochlorothiazide 25 mg PO DAILY PRN ipratropium bromide 2 sprays intranasal BID-TID PRN lorazepam 1 mg PO BEDTIME PRN naproxen 500 mg PO DAILY rosuvastatin 5 mg PO DAILY scopolamine base 1 patch transdermal Q3D PRN scopolamine base 1 patch transdermal Q3D PRN ursodiol 300 mg PO BID valsartan 80 mg PO DAILY 90 days Tobacco use date assessed: 01/28/25 Fall risk assessment: No Falls in past year Dental Screening Dental Screen Date: 01/28/25 Did you have a dental visit in the last 12 months?: Yes Did you have a dental problem in the last 6 months where you did not have access to dental care?: No Was dental information given to patient?: Patient has dentist HPI ear cleaning with REZA Schmidt HPI Details 74-year-old female with past medical history of hyperlipidemia, panic disorder, hyperlipidemia last seen 12/2024 by nurse practitioner coming in for ear cleaning. Patient has been using Debrox drops for the last 5 days in the right ear. She denies any dizziness or lightheadedness but does endorse ear pressure. She is also requesting a lipid panel as Dr. Carlos typically checks her cholesterol every 6 months [facility] Medical History Hemochromatosis Thrombocytopenia Fatty liver Breast cancer Endometrial carcinoma Panic disorder Hyperlipidemia Hypertension Primary osteoarthritis of left knee Primary osteoarthritis of right knee Surgical History History of colonoscopy (~02/03/23) History of lumpectomy of left breast History of cataract surgery History of liver biopsy History of foot surgery History of hysterectomy Family History Father Lung cancer Smoker Mother Osteoarthritis Bone cancer Maternal Aunt Osteoarthritis Social History Housing: House Alcohol intake: current Alcohol intake frequency: 0-2 drinks per day Patient Tobacco Use Status: Never used Tobacco e-Cigarette/Vaping Use: Never Used Second Hand Smoke Exposure: No service: No Current occupational status: employed 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 1. Little interest or pleasure in doing things: not at all 2. Feeling down, depressed, or hopeless: not at all 3. Trouble falling or staying asleep, or sleeping too much: not at all 4. Feeling tired or having little energy: not at all 5. Poor appetite or overeating: not at all 6. Feeling bad about yourself - or that you are a failure or have let yourself or your family down: not at all 7. Trouble concentrating on things, such as reading the newspaper or watching television: not at all 8. Moving or speaking so slowly that other people could have noticed. Or the opposite - being so fidgety or restless that you have been moving around a lot more than usual: not at all 9. Thoughts that you would be better off or of hurting yourself in some way: not at all Total score: 0 Depression Screening Interpretation: Negative Depression Screening Done: Yes 72718 - PHQ-9 Billing: Yes Source: Developed by Drs. Serafin Flores, Christina Sheppard, Garry Perry and colleagues, with an educational adenike from [employer]. Thrive Questionnaire Date Thrive assessed: 01/28/25 I am a: Patient What is your living situation today?: I have a steady place to live Within the past 12 months, did the food you bought not last and you didn't have the money to get more?: Never true Within the past 12 months, did you worry whether your food would run out before you got money to buy more?: Never true Do you have trouble paying for medicines?: No Do you have trouble getting transportation to medical appointments?: No Do you have trouble paying your heating and electricity bill?: No Do you have trouble taking care of your child, family member or friend?: No Do you have trouble with day-to-day activities such as bathing, preparing meals, shopping, managing finances, etc.?: No Are you currently unemployed and looking for a job?: No Are you interested in more education?: No Please select the resources that you would like help with: None Currently or been in a relationship where the following occur: No concerns reported THRIVE Score: 0 AUDIT C Alcohol Use Questionnaire (AUDIT-C) 1. How often do you have a drink containing alcohol?: 2-4 times a month 2. How many drinks containing alcohol do you have on a typical day when you are drinking?: 1 or 2 3. How often do you have six or more drinks on one occasion?: Never Total Score: 2 ALMA-7 AMB Questionnaire ALMA-7 Date ALMA - 7 assessed: 01/28/25 Feeling nervous, anxious, or on edge: 0 = Not at all Not being able to stop or control worryin = Not at all Worrying too much about different things: 0 = Not at all Trouble relaxin = Not at all Being so restless that it is hard to sit still: 0 = Not at all Becoming easily annoyed or irritable: 0 = Not at all Feeling afraid as if something awful might happen: 0 = Not at all Total ALMA-7 score (0-4 normal; 5-9 mild; 10-14 moderate; 15-21 severe): 0 Source: Developed by Drs. Serafin Flores, Christina Sheppard, Garry Perry and colleagues, with an educational adenike from [employer] ALMA-7 Assessment Billing ALMA-7 Assessment Tool: ALMA-7 Assessment 29879 Review of Systems ENT Details: Ear clogged feeling and decreased hearing on the right side Physical exam (Primary Care) Vital Signs: Last Vital Signs Pulse 68 01/28/25 12:57 BP 110/72 01/28/25 12:57 Pulse Ox 98 01/28/25 12:57 Oxygen Delivery Method Room Air 01/28/25 12:57 BMI result Body Mass Index 28.3 Tobacco/Smoking Status: Tobacco use Status Tobacco use date assessed 01/28/25 01/28/25 13:08 Patient Tobacco Use Status Never used Tobacco 01/28/25 13:08 e-Cigarette/Vaping Use Never Used 01/28/25 13:08 PHQ-9: PHQ-9 Score PHQ-9: Total score 0 01/28/25 13:08 Depression Screening Interpretation: Negative Thrive Assessment: Date of Thrive Assessment Date Thrive assessed 01/28/25 01/28/25 13:08 Currently or been in a relationship where the following occur: No concerns reported Const General: cooperative, healthy appearing, comfortable and no acute distress HENMT Head: Yes normocephalic Ears: hearing grossly normal bilaterally and Abnormal EAC present cerumen impaction on the right General nose exam: Normal external nose present Resp Effort & Inspection: normal respiratory effort Cardio Rate: regular rate Psych Affect: normal affect Attitude: cooperative Insight: Good insight present (Psych) Judgement: Good judgement present (Psych) Office Procedures Cerumen Removal From which ear canal was the cerumen removed: right Removal: cerumen loop/spoon Notes: patient tolerated procedure well, no complications and ear canal clear [id number] Wax Removal by Spoon/Curette Coding Level of Care Code Est Pt Level 2 (88771) Diagnoses Right ear impacted cerumen H61.21 Hyperlipidemia E78.5 CPT Codes Office Procedure - CPT: 49794-Rjg Wax Removal by Spoon/Curette ([id number]) Additional Codes ALMA-7 Assessment Billing - ALMA-7 Assessment Tool: ALMA-7 Assessment 14986 ([id number]) PHQ-9 - 28086 - PHQ-9 Billing: Yes ([id number]) Assessment & Plan Assessment & Plan (1) Right ear impacted cerumen: Code(s): H61.21 - Impacted cerumen, right ear Category: Medical Plan: Right ear was successfully cleaned using lighted curette. Patient tolerated the procedure well TM was visualized as intact with well aerated middle ear space without retraction or perforation. Follow up as needed for this concern (2) Hyperlipidemia: Code(s): E78.5 - Hyperlipidemia, unspecified Category: Medical Plan: Avoid foods that are high in cholesterol such as red meat, fried foods, eggs and baked goods. Triglyceride goal of less than 150 and LDL goal of less than 70. Continue on rosuvastatin 5 Plan This note was constructed using voice recognition software. While every effort has been made to ensure accuracy and sports broadcaster, still areas may have been included sometimes these areas may affect the content or meeting of the given symptoms. Total time spent caring for the patient today was 20 minutes. This includes time spent before the visit reviewing the chart, time spent during the visit, and time spent after the visit and documentation. Orders: Orders Lipid Panel Today E78.00 - Pure hypercholesterolemia, unspecified Referrals Vascular Neurology Referral I65.02 - Occlusion and stenosis of left vertebral artery
--- OUTSIDE RECORDS SUMMARY | 2025-01-28 14:19 | XMS_ITS | Data Portability ---
Author Organization [place] - [facility], [facility]- Address [address] [place] [address] Assessment Encounter Date Assessment Date Assessment LastModified [...] DO Not Attach Compendium, Do Not Delete/merge, [id number] 15:52:00 XR, knee 023 04/21/20 23 [email or web address] In-Office Order, Internal Use Only DO Not Attach Compendium DO Not Attach Compendium, Do Not Delete/merge, [id number] 08:08:48 Medication Orders None record ed. Patient TargetsNo targets recorded. Patient Instructions Encounter Date Encounter Id Patient Instructions Last Modified By Organization Details Last Modified Time 04/21/2023 [id number] X-rays of both k nees demonstrate significant [...] DO Not Attach Compendium, Do Not Delete/merge, [id number] 04/21/2023 10:39:03 04/21/20 23 03/15/2018 MRI, knee, w/o contr ast No observ ation record ed. [email or web address] Not Available 2022 11:17:07 04/21/20 23 10/28/2022 MRI, knee, w/o contr ast No observ ation record ed. [email or web address] Not Available 2022 11:17:48 10/02/19 24 XR, knee No observ ation record ed. [email or web address] In-Office Order Internal Use Only DO Not Attach Compendium DO Not Attach Compendium, Do Not Delete/merge, [id number] 10/02/2023 10:21:33 Result Notes None recorded. Procedures Surgical History Date Name Laterality Status Provider Name and Address Organization Details Recorded Time 4 (SAS) Knee Cortisone Injection completed Alfredo Jade MD [address] [place], [address], [facility] 10/02/2023 10:33:34 3 (SAS) Knee Cortisone Injection completed Alfredo Jade MD [address] [place], [address], [facility] 04/21/2023 10:50:10 Imaging Results [...] Updated DateTime 10/02/2023 167.64 cm 29.4 kg/m2 46885.81 g Radha sanders [place] - [facility] 10/02/2023 09:59:31 Date Recorded Body height Body weight Provider Name and Address Organization Details Last Updated DateTime 04/21/2023 167.64 cm 79672.81 g alejo payan [facility] 04/21/2023 10:18:09 Social History Question Answer Notes LastModified by Iptune Details LastModified Time Tobacco Smoking Status Never Smoker alejo ribeiro [place] - [facility] 04/21/2023 10:19:10 What Was The Date Of Your Most Recent Tobacco Screening? 04/21/2023 [email or web address] Information not available 04/21/2023 Sex: Unknown Functional Status Question Answer Note LastModified by [employer] Details LastModified Time Do you use any illicit or recreational drugs? No [email or web address] Information not available 04/21/2023 Do you or have you ever used any other forms of tobacco or nicotine? No [email or web address] Information not available 04/21/2023 What is your level of alcohol consumption? None [email or web address] Information not available 04/21/2023 Mental Status None recorded. Family History Nothing Reported. Medical History Condition Response Coronary Artery Disease N HIV or AIDS N Gout N Migraines N Thyroid Problems N Lung Disease N Depression N Blood Clots N Pacemaker N Anemia N Ulcers N Heart Attack ([place]) N Anxiety Disorder Y Diabetes N Bleeding [...] SNOMED-CT Code Diagnosis ICD10 Code Diagnosis Note [id number] MD JD Mosher N. [employer] [address] [place] [address] 04/21/2023 09:58:38 04/21/2023 10:57:02 Osteoarthritis of right knee joint 0460787764 17635 M17.11 Osteoarthr itis of left knee joint 3154646436 80331 M17.12 [id number] MD JD Mosher N. [employer] el [address] [place] [address] 10/02/2023 09:57:14 10/02/2023 10:45:44 Osteoarthritis of right knee joint 1837200878 72265 M17.11 Osteoarthr itis of left knee joint 0831102167 32915 M17.12 Health Concerns Section Related Observation LastModified by Organization Detai ls LastModified Time None Recorded Concern Status LastModified by Organization Details LastModified Time None Recorded Advance Directives Directive None Recorded Payers Encounter Date Sequence Insurance Name Policy Number Policy Luevano Covered Member ID Luevano Member ID Guarantor Name 04/21/2023 1 [place] [employer] Betty Mera [id number] Betty Curtison 04/21/2023 2 [place] [id number] Betty Samaria [id number] Betty Curtison 10/02/2023 1 [place] [employer] Betty Mera [id number] Betty Mera 10/02/2023 2 [facility] [id number] Betty Mera [id number] Betty Mera Notes Date Note Type Note Provider Name and Address Organization Details Recorded Time 04/21/2023 text/html A 72-year-old wo man who is from the [facility] area, who has heard about us from other patients, who presents with bilateral history of knee arthritis. She has had x-rays and MRI scan. She has had cortisone shots, nonoperative measures with worsening pain and discomfort as of late. She is strongly considering surgical intervention. She is here today for second opinion, here today with her as well. Alfredo Jade MD [address] [place] [address], [phone], [facility] 04/22/2023 04:33:09 10/02/2023 text/html [...] improve pain and function. Alfredo Jade MD [address] [place] [address], [phone], [facility] 10/02/2023 10:37:18 OBGyn Episode No OBEpisode recorded.
== END 2025-01-28 13:29 | disposition home or self-care (01) ==
LOC: HO.HMCH 12:56
PROVIDERS: PCP Internal Medicine
DX: H61.21 Impacted cerumen, right ear (principal); E78.5 Hyperlipidemia, unspecified

== ENCOUNTER → 2025-01-28 12:55 | Outpatient (BNVA) | payer MEDICARE, SELFPAY | PROVIDERS: PCP Internal Medicine | DX: H61.21 Impacted cerumen, right ear (principal); E78.5 Hyperlipidemia, unspecified | CPT/HCPCS: 69210; 96127; 99212 ==

== ENCOUNTER 2025-01-29 08:26 | Outpatient (REF) | payer MEDICARE, SELFPAY ==
[2025-01-29 10:00] LABS: Cholesterol 136 mg/dL (<200); HDL Cholesterol 49 mg/dL (>40); LDL Cholesterol Calculated 75 mg/dL (<100); Triglycerides 60 mg/dL (<150)
== END 2025-01-29 08:27 | disposition home or self-care (01) ==
LOC: HO.LAB 08:26
DX: E78.00 Pure hypercholesterolemia, unspecified (principal)
CPT/HCPCS: 36415; 80061

== ENCOUNTER 2025-02-11 12:33 | Outpatient (AMB) | payer MEDICARE, SELFPAY ==
[2025-02-11 12:51] VITALS: BP 120/76; PULSE 56; BMI 28.1
--- NOTE | 2025-02-11 12:51 | MHC.OFFVIS ---
Vital Signs 02/11/25 12:51 Height 5 ft 6 in Weight 174 lb 2.643 oz BMI 28.1 BP 120/76 Blood Pressure Location Lt brachial Position Sitting Pulse 56 Intake Visit Reasons: 1 yr /fup Intake Note: 1 year follow-up with ekg ? ok to take asa and valsartan [employer] Required: No Allergies chlorhexidine [CHLORAPREP] Allergy (Mild, Verified 01/28/25 13:11) RASH cephalexin [Keflex] Allergy (Unknown, Verified 01/28/25 13:11) GI upset Medication List - Last Reconciled 02/11/25 by Norman Farias MD aspirin 81 mg PO DAILY atenolol 50 mg PO DAILY cholecalciferol (vitamin D3) 50 mcg PO DAILY epinephrine (EpiPen 2-Octavio) 0.3 mg (0.3 mL) IM Q4H PRN hydrochlorothiazide 25 mg PO DAILY PRN ipratropium bromide 2 sprays intranasal BID-TID PRN lorazepam 1 mg PO BEDTIME PRN naproxen 500 mg PO DAILY rosuvastatin 5 mg PO DAILY scopolamine base 1 patch transdermal Q3D PRN scopolamine base 1 patch transdermal Q3D PRN ursodiol 300 mg PO BID valsartan 80 mg PO DAILY 90 days HPI Comments Details: Sada comes for follow-up. She had recent symptom of vertigo and subsequently ended up going to [facility] where she was noted to have left vertebral artery narrowing. She was at that time started on aspirin, baby aspirin. She had also on rosuvastatin at 5 mg. She has had no recurrent symptoms since then. She notices labile blood pressure at home and says the blood pressure is usually elevated to 160 when she is under stressful situations. After she rests her blood pressures mostly been well controlled. She also occasionally notices during the blood pressure monitoring dilator pulse rate is slow. She has no lightheadedness, syncope. No exertional chest pain or shortness of breath. [facility] Medical History Hemochromatosis Thrombocytopenia Fatty liver Breast cancer Endometrial carcinoma Panic disorder Hyperlipidemia Hypertension Primary osteoarthritis of left knee Primary osteoarthritis of right knee Surgical History History of colonoscopy (~02/03/23) History of lumpectomy of left breast History of cataract surgery History of liver biopsy History of foot surgery History of hysterectomy Family History Father Lung cancer Smoker Mother Osteoarthritis Bone cancer Maternal Aunt Osteoarthritis Social History Housing: House Alcohol intake: current Alcohol intake frequency: 0-2 drinks per day Patient Tobacco Use Status: Never used Tobacco e-Cigarette/Vaping Use: Never Used Second Hand Smoke Exposure: No service: No Current occupational status: employed 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 Cognitive needs: No Hearing needs: No Vision needs: Yes Review of Systems Const Denies chills, Denies fatigue, Denies fever(s), Denies frequent falls, Denies weakness, Denies weight gain and Denies weight loss ENT Denies dizziness Card Denies chest pain, Denies leg edema, Denies lightheadedness, Denies palpitations, Denies dyspnea, Denies dyspnea on exertion, Denies orthopnea and Denies other (loss of consciousness) Resp Denies cough, Denies dyspnea and Denies dyspnea on exertion GI Denies hematochezia and Denies change in stool character Musc Denies abnormal gait, Denies muscle weakness, Denies numbness, Denies radiating pain into limb and Denies tingling Neuro Denies Abnormal speech present, Denies abnormal gait, Denies dizziness, Denies frequent falls, Denies numbness, Denies tingling and Denies weakness Endo Denies fatigue and Denies palpitations Physical Exam Vital Signs: Last Vital Signs Pulse 56 02/11/25 12:51 BP 120/76 02/11/25 12:51 BMI result Body Mass Index 28.1 Const General: cooperative, comfortable, no acute distress, alert, awake and well groomed Nutritional Appearance: well nourished and overweight Orientation/consciousness: patient oriented x3 Limitations: no limitations HEENT Head: Yes normocephalic and Yes atraumatic Neck Neck: Yes trachea midline, Yes supple and Yes no JVD Chest Chest palpation & inspection: normal inspection of the chest Resp Effort & Inspection: normal respiratory effort Auscultation: clear to auscultation bilaterally Cardio Jugular venous distension: no JVD Palpation: normal PMI Rate: regular rate Rhythm: regular rhythm Heart sounds: S1 normal heart sound present, S2 normal heart sound present, no click, no gallops, no murmurs and no rubs GI Auscultation: normal bowel sounds Skin General skin exam: no rashes or lesions noted Neuro General: patient oriented x3 and no focal motor deficits Speech: No Abnormal speech present Extrem General: Yes no clubbing, cyanosis or edema Psych Appearance: grossly normal Office Procedures EKG Details: EKG shows normal sinus rhythm with sinus arrhythmias otherwise normal EKG 57254-[id number], Complete Assessment & Plan Assessment & Plan (1) Hypertension: Code(s): I10 - Essential (primary) hypertension Category: Medical Plan: Hypertension with some labile blood pressure reading especially under stressful situation. We discussed mechanism of elevated blood pressure that setting. At that point time advised not to monitor blood pressure. Usually monitor blood pressure in his stressful situation. I would not change her therapy for that at this point time. Advised to continue monitor blood pressure with target goal blood pressure is generally less than 130/84. Low-salt diet was discussed. Stress mitigation strategies was discussed. Importance of good blood pressure control was discussed. She does not currently have any orthostatic symptoms. Advised to maintain adequate hydration. 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 (2) Bradycardia: Code(s): R00.1 - Bradycardia, unspecified Category: Medical Plan: Self-reported bradycardia as noted by blood pressure monitoring. She has no symptoms related to it. Could represent spuriously low blood pressure recordings due to extra systoles. Would suggest a 2-3 day Holter monitor. If she has significant bradycardia will need to taper atenolol therapy. This was discussed with her. Will follow up in the clinic in 1 year's time, sooner p.r.n.. Thank you for allowing me to partake in his care Coding Level of Care Code Est Pt Level 4 (92904) Complex EM visit Add On G2211 Diagnoses Hypertension I10 Bradycardia R00.1 CPT Codes EKG - CPT: 50773-Bzezbiumrxzyxvvvq, Complete ([id number])
--- OUTSIDE RECORDS SUMMARY | 2025-02-11 14:12 | XMS_ITS | Data Portability ---
Author Organization [place] - [facility], [facility]- Address [address] [place] [address] Assessment Encounter Date Assessment Date Assessment LastModified [...] DO Not Attach Compendium, Do Not Delete/merge, [id number] 15:52:00 XR, knee 023 04/21/20 23 [email or web address] In-Office Order, Internal Use Only DO Not Attach Compendium DO Not Attach Compendium, Do Not Delete/merge, [id number] 08:08:48 Medication Orders None record ed. Patient TargetsNo targets recorded. Patient Instructions Encounter Date Encounter Id Patient Instructions Last Modified By Organization Details Last Modified Time 04/21/2023 [id number] X-rays of both k nees demonstrate significant [...] They are going to go down to [place] for the winter, and when they return [...] DO Not Attach Compendium, Do Not Delete/merge, [id number] 04/21/2023 10:39:03 04/21/20 23 03/15/2018 MRI, knee, w/o contr ast No observ ation record ed. Not Available 2022 11:17:07 04/21/20 23 10/28/2022 MRI, knee, w/o contr ast No observ ation record ed. [email or web address] Not Available 2022 11:17:48 10/02/19 24 XR, knee No observ ation record ed. [email or web address] In-Office Order Internal Use Only DO Not Attach Compendium DO Not Attach Compendium, Do Not Delete/merge, [id number] 10/02/2023 10:21:33 Result Notes None recorded. Procedures Surgical History Date Name Laterality Status Provider Name and Address Organization Details Recorded Time 4 (SAS) Knee Cortisone Injection completed Alfredo Jade MD [address] [place], [address], [facility] 10/02/2023 10:33:34 3 (SAS) Knee Cortisone Injection completed Alfredo Jade MD [address] [place], [address], [facility] 04/21/2023 10:50:10 Imaging [...] Updated DateTime 10/02/2023 167.64 cm 29.4 kg/m2 56221.81 g Radha sanders [place] - [facility] 10/02/2023 09:59:31 Date Recorded Body height Body weight Provider Name and Address Organization Details Last Updated DateTime 04/21/2023 167.64 cm 29520.81 g [facility] payan [facility] 04/21/2023 10:18:09 Social History Question Answer Notes LastModified by WigW[employer] Details LastModified Time Tobacco Smoking Status Never Smoker alejo ribeiro [place] - [facility] 04/21/2023 10:19:10 What Was The Date Of Your Most Recent Tobacco Screening? 04/21/2023 [email or web address] Information not available 04/21/2023 Sex: Unknown Functional Status Question Answer Note LastModified by [employer] Details LastModified Time Do you use any illicit or recreational drugs? No [email or web address] Information not available 04/21/2023 Do you or have you ever used any other forms of tobacco or nicotine? No [email or web address] Information not available 04/21/2023 What is your level of alcohol consumption? None [email or web address] Information not available 04/21/2023 Mental Status None recorded. Family History Nothing Reported. Medical History Condition Response HIV or AIDS N Coronary Artery Disease N Gout N Migraines N Thyroid Problems N Lung Disease N Depression N Blood Clots N Pacemaker N Anemia N Heart Attack ([place]) N Ulcers N Anxiety Disorder Y Diabetes [...] SNOMED-CT Code Diagnosis ICD10 Code Diagnosis Note [id number] MD JD Mosher N. [employer] [address] [place] [address] 04/21/2023 09:58:38 04/21/2023 10:57:02 Osteoarthritis of right knee joint 9040653426 25504 M17.11 Osteoarthr itis of left knee joint 3764936841 51939 M17.12 [id number] MD JD Mosher N. [employer] el [address] [place] [address] 10/02/2023 09:57:14 10/02/2023 10:45:44 Osteoarthritis of right knee joint 3114347167 23024 M17.11 Osteoarthr itis of left knee joint 4164706343 51386 M17.12 Health Concerns Section Related Observation LastModified by Organization Detai ls LastModified Time None Recorded Concern Status LastModified by Organization Details LastModified Time None Recorded Advance Directives Directive None Recorded Payers Insurance Date Sequence Insurance Name Policy Number Policy Luevano Covered Member ID Luevano Member ID Guarantor Name 09/29/2023 2 [place] [id number] Betty Mera [id number] Betty Samaria 09/29/2023 1 [place] [id number] Betty Mera [id number] Betty Mera Notes Date Note Type Note Provider Name and Address Organization Details Recorded Time 04/21/2023 text/html A 72-year-old wo man who is from the [facility] area, who has heard about us from other patients, who presents with bilateral history of knee arthritis. She has had x-rays and MRI scan. She has had cortisone shots, nonoperative measures with worsening pain and discomfort as of late. She is strongly considering surgical intervention. She is here today for second opinion, here today with her as well. Alfredo Jade MD [address] [place], [address], [facility] 04/22/2023 04:33:09 10/02/2023 [...] pain and function. Alfredo Jade MD [address] [place], [address], [facility] 10/02/2023 10:37:18 OBGyn Episode No OBEpisode recorded.
== END 2025-02-11 13:17 | disposition home or self-care (01) ==
LOC: HO.HCS 12:34
PROVIDERS: PCP Internal Medicine; Visit Provider Internal Medicine Cardiovascular Disease
DX: I10 Essential (primary) hypertension (principal); R00.1 Bradycardia, unspecified
CPT/HCPCS: 93010; 99214; G2211

== ENCOUNTER → 2025-02-11 12:33 | Outpatient (BNVA) | payer MEDICARE, SELFPAY | PROVIDERS: PCP Internal Medicine; Visit Provider Internal Medicine Cardiovascular Disease | DX: R00.1 Bradycardia, unspecified (principal) | CPT/HCPCS: 93005; 99212 ==

== ENCOUNTER 2025-03-03 14:51 | Outpatient (AMB) | payer MEDICARE, SELFPAY ==
[2025-03-03 15:17] VITALS: BP 108/70; BMI 28.2
--- NOTE | 2025-03-03 15:17 | A.OFFPC_ITS ---
Vital Signs 03/03/25 15:17 Height 5 ft 6 in Weight 175 lb BMI 28.2 BP 108/70 Blood Pressure Location Lt brachial Position Sitting Intake Visit Reasons: follow up transfer from [facility] Merchandise Pickup/Receiving Associate Required: No Accompanied by: Self / Same As Patient Allergies chlorhexidine (CHLORAPREP) Allergy (Mild, Verified 03/03/25 15:34) RASH cephalexin (Keflex) Allergy (Unknown, Verified 03/03/25 15:34) GI upset Medication List - Last Reconciled 03/03/25 by Suellen Victor MD aspirin 81 mg PO DAILY atenolol 50 mg PO DAILY cholecalciferol (vitamin D3) 50 mcg PO DAILY epinephrine (EpiPen 2-Octavio) 0.3 mg (0.3 mL) IM Q4H PRN hydrochlorothiazide 25 mg PO DAILY PRN lorazepam 1 mg PO BEDTIME PRN naproxen 500 mg PO DAILY rosuvastatin 5 mg PO DAILY ursodiol 300 mg PO BID valsartan 80 mg PO DAILY 90 days Tobacco use date assessed: 01/28/25 Fall risk assessment: No Falls in past year Last assessed Fall Risk: 03/03/25 Dental Screening Dental Screen Date: 03/03/25 Did you have a dental visit in the last 12 months?: Yes Did you have a dental problem in the last 6 months where you did not have access to dental care?: No Was dental information given to patient?: Patient has dentist HPI HPI Comments History of Present Illness Details The patient is a 74-year-old female presenting for transfer of care due to her previous doctor's mcc. She has a history of breast cancer diagnosed in 2019 and is up to date with her mammograms. She underwent a colonoscopy in 2022, with the next one scheduled in five years. The patient has liver cirrhosis, which is being managed by a shank cutter. She also has dyslipidemia, which is well controlled with statins, and a history of low vitamin D levels. Her medical history includes hypertension and anxiety, for which she takes lorazepam as needed. She denies any chest pain or dyspnea and is compliant with her medications. Her last pneumonia vaccine was administered at 65 years old, and she is due for another today. She will consult her SAW OFFBEARER next month regarding the need for a bone density test, as her last one was in 2022. [facility] Medical History (Updated 03/03/25 @ 21:03 by Suellen Victor MD) Hemochromatosis Thrombocytopenia Fatty liver Breast cancer Endometrial carcinoma Panic disorder Hyperlipidemia Hypertension Primary osteoarthritis of left knee Primary osteoarthritis of right knee Surgical History History of colonoscopy (~02/03/23) History of lumpectomy of left breast History of cataract surgery History of liver biopsy History of foot surgery History of hysterectomy Family History Father Lung cancer Smoker Mother Osteoarthritis Bone cancer Maternal Aunt Osteoarthritis Social History (Updated 03/03/25 @ 15:41 by Suellen Victor MD) Housing: House Alcohol intake: current Alcohol intake frequency: a few times a month Alcohol type: wine Patient Tobacco Use Status: Never used Tobacco e-Cigarette/Vaping Use: Never Used Second Hand Smoke Exposure: No service: No Current occupational status: employed 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 Cognitive needs: No Hearing needs: No Vision needs: Yes Questionnaire Thrive Questionnaire Date Thrive assessed: 01/20/25 I am a: Patient What is your living situation today?: I have a steady place to live Within the past 12 months, did the food you bought not last and you didn't have the money to get more?: Never true Within the past 12 months, did you worry whether your food would run out before you got money to buy more?: Never true Do you have trouble paying for medicines?: No Do you have trouble getting transportation to medical appointments?: No Do you have trouble paying your heating and electricity bill?: No Do you have trouble taking care of your child, family member or friend?: No Do you have trouble with day-to-day activities such as bathing, preparing meals, shopping, managing finances, etc.?: No Are you currently unemployed and looking for a job?: No Are you interested in more education?: No Please select the resources that you would like help with: None Currently or been in a relationship where the following occur: No concerns reported THRIVE Score: 0 ALMA-7 AMB Questionnaire ALMA-7 Date ALMA - 7 assessed: 01/28/25 Source: Developed by Drs. Serafin Flores, Christina Sheppard, Garry Perry and colleagues, with an educational adenike from [employer]. Review of Systems Const All systems reviewed & are unremarkable except as noted in HPI and below Card Denies chest pain at rest, Denies chest pain with activity, Denies edema, Denies irregular heart rhythm, Denies claudication, Denies dyspnea, Denies dyspnea on exertion, Denies orthopnea, Denies paroxysmal nocturnal dyspnea and Denies slow heart rate Resp Denies cough, Denies dyspnea and Denies dyspnea on exertion GI Denies abdominal pain, Denies change in bowel habits, Denies excessive flatus, Denies nausea and Denies vomiting Physical exam (Primary Care) Vital Signs: Last Vital Signs BP 108/70 03/03/25 15:17 BMI result Body Mass Index 28.2 Tobacco/Smoking Status: Tobacco use Status Tobacco use date assessed 01/28/25 03/03/25 15:22 Patient Tobacco Use Status Never used Tobacco 03/03/25 15:41 e-Cigarette/Vaping Use Never Used 03/03/25 15:41 Thrive Assessment: Date of Thrive Assessment Date Thrive assessed 01/20/25 03/03/25 15:22 Currently or been in a relationship where the following occur: No concerns reported Resp Effort & Inspection: normal respiratory effort Auscultation: clear to auscultation bilaterally Cardio Jugular venous distension: no JVD Rate: regular rate Rhythm: regular rhythm Heart sounds: S1 normal heart sound present and S2 normal heart sound present Extrem General: Yes full ROM Immunizations pneumoc 20-tana conj-dip cr(PF) 0.5 mL IM syringe Performing Provider: Suellen Victor MD [facility] Administered by: Kalyani Guy CMA on 03/03/25 15:51 Dose Route Admin Location Dispensed Lot Number Expiration Date FLC Inventory Technician 0.5 mL IM Left Tricep 0.5 mL [id number] 03/27/26 8346-9104-56 enStage[employer]/ PFIZER Total Dispensed Waste 0.5 mL 0 % VIS Given Date VIS Provided VIS Publication Date 03/03/25 Single Vaccine 25 Eligibility Eligibility Date Funding Source Not [facility] Eligible 03/03/25 Private Coding Level of Care Code Est Pt Level 4 (18813) Complex EM visit Add On G2211 Diagnoses Hypertension I10 Hyperlipidemia E78.5 Panic disorder F41.0 Cirrhosis of liver K74.60 History of breast cancer Z85.3 Time Spent (min) 22 Assessment & Plan Assessment & Plan (1) Hypertension: Code(s): I10 - Essential (primary) hypertension Category: Medical (2) Hyperlipidemia: Code(s): E78.5 - Hyperlipidemia, unspecified Category: Medical (3) Panic disorder: Code(s): F41.0 - Panic disorder [episodic paroxysmal anxiety] Category: Medical (4) Cirrhosis of liver: Code(s): K74.60 - Unspecified cirrhosis of liver Category: Medical (5) History of breast cancer: Code(s): Z85.3 - Personal history of malignant neoplasm of breast Category: Medical Plan The patient will continue her current management for liver cirrhosis under the care of her shank cutter. Her dyslipidemia remains well controlled with statins, and she will maintain this regimen. She will receive a pneumonia vaccine today, as her last was administered at 65 years old. She will follow up with her SAW OFFBEARER next month to discuss the necessity of a bone density test. Patient was informed and verbally consented to the use of an ambient scribe for clinic note documentation during this visit. Orders: Orders Comprehensive Tucker. Panel Fast 6 Months E78.5 - Hyperlipidemia, unspecified Lipid Panel 6 Months E78.5 - Hyperlipidemia, unspecified Pneumococcal 20 Immunization Today Z23 - Encounter for immunization
--- OUTSIDE RECORDS SUMMARY | 2025-03-03 15:22 | XMS_ITS | Data Portability ---
Author Organization [place] [facility] [place] Address [address] [place] [address] Assessment Encounter Date Assessment Date Assessment LastModified [...] DO Not Attach Compendium, Do Not Delete/merge, [id number] 15:52:00 XR, knee 023 04/21/20 23 [email or web address] In-Office Order, Internal Use Only DO Not Attach Compendium DO Not Attach Compendium, Do Not Delete/merge, [id number] 08:08:48 Medication Orders None record ed. Patient TargetsNo targets recorded. Patient Instructions Encounter Date Encounter Id Patient Instructions Last Modified By Organization Details Last Modified Time 04/21/2023 [id number] X-rays of both k nees demonstrate significant [...] They are going to go down to [place] for the winter, and when they return [...] DO Not Attach Compendium, Do Not Delete/merge, [id number] 04/21/2023 10:39:03 04/21/20 23 03/15/2018 MRI, knee, w/o contr ast No observ ation record ed. [email or web address] Not Available 2022 11:17:07 04/21/20 23 10/28/2022 MRI, knee, w/o contr ast No observ ation record ed. [email or web address] Not Available 2022 11:17:48 10/02/19 24 XR, knee No observ ation record ed. [email or web address] In-Office Order Internal Use Only DO Not Attach Compendium DO Not Attach Compendium, Do Not Delete/merge, [id number] 10/02/2023 10:21:33 Result Notes None recorded. Procedures Surgical History Date Name Laterality Status Provider Name and Address Organization Details Recorded Time 4 ([facility]) Knee Cortisone Injection completed Alfredo Jade MD [address] [place], [address], [facility] 10/02/2023 10:33:34 3 ([facility]) Knee Cortisone Injection completed Alfredo Jade MD [address] [place], [address], [facility] 04/21/2023 10:50:10 Imaging Results [...] Updated DateTime 10/02/2023 167.64 cm 29.4 kg/m2 48200.81 g Radha sanders [place] - [facility] 10/02/2023 09:59:31 Date Recorded Body height Body weight Provider Name and Address Organization Details Last Updated DateTime 04/21/2023 167.64 cm 61229.81 g alejo payan [place] - [facility] 04/21/2023 10:18:09 Social History Question Answer Notes LastModified by Hoppitizat ion Details LastModified Time Tobacco Smoking Status Never Smoker alejo ribeiro [place] - [facility] 04/21/2023 10:19:10 What Was The Date Of Your Most Recent Tobacco Screening? 04/21/2023 Information not available 04/21/2023 Sex: Unknown Functional Status Question Answer Note LastModified by Ravti Details LastModified Time Do you use any illicit or recreational drugs? No [email or web address] Information not available 04/21/2023 Do you or have you ever used any other forms of tobacco or nicotine? No [email or web address] Information not available 04/21/2023 What is your level of alcohol consumption? None [email or web address] Information not available 04/21/2023 Mental Status None recorded. Family History Nothing Reported. Medical History Condition Response HIV or AIDS N Coronary Artery Disease N Gout N Migraines N Thyroid Problems N Lung Disease N Depression N Blood Clots N Pacemaker N Anemia N Heart Attack ([place]) N Ulcers N Anxiety Disorder Y Diabetes [...] SNOMED-CT Code Diagnosis ICD10 Code Diagnosis Note [id number] MD JD Mosher. Lizeth gallegos [address] [place] [address] 04/21/2023 09:58:38 04/21/2023 10:57:02 Osteoarthritis of right knee joint 0515225169 30064 M17.11 Osteoarthr itis of left knee joint 2206705286 22149 M17.12 [id number] Alfredo Jade MD JD [address] [place] [address] 10/02/2023 09:57:14 10/02/2023 10:45:44 Osteoarthritis of right knee joint 4431044602 78050 M17.11 Osteoarthr itis of left knee joint 5162879896 88871 M17.12 Health Concerns Section Related Observation LastModified by Organization Detai ls LastModified Time None Recorded Concern Status LastModified by Organization Details LastModified Time None Recorded Advance Directives Directive None Recorded Payers Insurance Date Sequence Insurance Name Policy Number Policy Luevano Covered Member ID Luevano Member ID Guarantor Name 09/29/2023 2 [place] [id number] Betty Marion [id number] Bettyaliyah Mera 09/29/2023 1 [place] [employer] SERVICES Betty Mera [id number] Betty Mera Notes Date Note Type Note Provider Name and Address Organization Details Recorded Time 04/21/2023 text/html A 72-year-old wo man who is from the [facility] area, who has heard about us from other patients, who presents with bilateral history of knee arthritis. She has had x-rays and MRI scan. She has had cortisone shots, nonoperative measures with worsening pain and discomfort as of late. She is strongly considering surgical intervention. She is here today for second opinion, here today with her as well. Alfredo Jade MD [address] [place], [address], [facility] 04/22/2023 04:33:09 10/02/2023 text/html [...] pain and function. Alfredo Jade MD [address] [facility], [place], [address], [facility] 10/02/2023 10:37:18 OBGyn Episode No OBEpisode recorded.
== END 2025-03-03 15:52 | disposition home or self-care (01) ==
LOC: HO.HMCH 14:52
PROVIDERS: PCP Internal Medicine; Visit Provider Internal Medicine
DX: I10 Essential (primary) hypertension (principal); E78.5 Hyperlipidemia, unspecified; F41.0 Panic disorder [episodic paroxysmal anxiety]; K74.60 Unspecified cirrhosis of liver; Z85.3 Personal history of malignant neoplasm of breast; Z23 Encounter for immunization

== ENCOUNTER → 2025-03-03 14:51 | Outpatient (BNVA) | payer MEDICARE, SELFPAY | PROVIDERS: PCP Internal Medicine; Visit Provider Internal Medicine | DX: Z23 Encounter for immunization (principal); I10 Essential (primary) hypertension; E78.5 Hyperlipidemia, unspecified; F41.0 Panic disorder [episodic paroxysmal anxiety]; K74.60 Unspecified cirrhosis of liver; Z85.3 Personal history of malignant neoplasm of breast | CPT/HCPCS: 90471; 90677; 99212 ==

== ENCOUNTER 2025-04-22 11:23 | Outpatient (REF) | payer MEDICARE, SELFPAY ==
[2025-04-22 11:34] LABS: MANUAL DIFF FLAG NO
[2025-04-22 12:54] LABS: Hematocrit 41.1 % (37.0-47.0); Hemoglobin 14.0 g/dl (12.0-16.0); INTERNATIONAL NORM RATIO 1.1 (0.9-1.1); Imm Gran Abs Auto 0.02 X10*3/uL (0.00-0.03); Imm Gran Pct Auto 0.4 % (0.0-0.4); Lymphocytes Absolute Auto 1.3 X10*3/uL (1.2-4.9); Mean Corpuscular HGB Conc 34.1 g/dl (31.0-35.0); Mean Corpuscular Hemoglobin 33.8 pg (27.0-33.0); Mean Corpuscular Volume 99.3 fL (80.0-98.0); NRBC Abs Auto 0.000 X10*3/uL (0.0-0.012); NRBC Pct Auto 0.0 /100WBC (0.0-0.2); Platelet Count 125 X10*3/uL (160-400); Prothrombin Time 13.1 SEC (10.9-12.4); Red Blood Count 4.14 X10*6/uL (4.20-5.50); White Blood Count 5.5 X10*3/uL (4.8-10.8)
[2025-04-22 13:15] LABS: Alanine Aminotransferase 46 U/L (0-31); Albumin Level 3.9 g/dL (3.5-5.0); Alkaline Phosphatase 73 U/L (39-117); Aspartate Amino Transferase 48 U/L (5-31); Iron 120 mcg/dL (30-160); Percent Iron Saturation 34 % (15-50); Total Iron Binding Capacity 351 mcg/dL (228-428); Total Protein 7.0 g/dL (6.5-8.0); Unsaturated Iron Binding 231 ug/dL
[2025-04-22 13:32] LABS: Ferritin 123 ng/mL (10-250)
[2025-04-26 19:13] LABS: FIB-ALT 33 U/L (6-29); FIB-Alpha-2-Macroglobulin 335 mg/dL (106-279); FIB-Apolipoprotein A1 146 mg/dL (101-198); FIB-GGT 52 U/L (3-65); FIB-Haptoglobin 37 mg/dL (43-212); FIB-Total Bilirubin 0.6 mg/dL (0.2-1.2); Liver Fibrosis Score 0.78; Liver Fibrosis Stage F4; Nec Inflam Act Grade A1; Nec Inflam Act Score 0.29
== END 2025-04-22 11:24 | disposition home or self-care (01) ==
LOC: HO.LAB 11:23
PROVIDERS: PCP Internal Medicine; Visit Provider Internal Medicine
DX: K76.0 Fatty (change of) liver, not elsewhere classified (principal); K74.00 Hepatic fibrosis, unspecified; K74.60 Unspecified cirrhosis of liver
CPT/HCPCS: 36415; 80076; 81596; 82105; 82728; 83540; 85025; 85610

== ENCOUNTER 2025-06-13 08:47 | Outpatient (REF) | payer MEDICARE, SELFPAY ==
--- NOTE | ~2025-06-13 | US_ITS ---
EXAMINATION: US COMPLETE ABDOMEN WITH LIVER ELASTOGRAPHY CLINICAL INFORMATION: The liver, liver fibrosis. COMPARISON: 03/13/2024, 11/24/2022 TECHNIQUE: Real-time imaging of the abdominal viscera. Noninvasive ultrasound liver fibrosis assessment is performed using Yasmany ElastPQ point quantification shear wave elastography (pSWE) with a C5-2 MHz transducer. Multiple elastography samples are obtained. FINDINGS: PANCREAS: The visualized pancreatic head and body are normal in appearance. The remainder of the pancreas is obscured from visualization by the overlying bowel gas. ABDOMINAL AORTA: No aortic aneurysm is seen. INFERIOR VENA CAVA: Visualized portions are normal. LIVER: Liver is mildly enlarged. There is increased echogenicity and coarsened echotexture present. There is a normal contour. There is no focal suspicious lesion. There is no intra or extrahepatic biliary dilatation. The right lobe measures 19.1 cm in length. The left lobe measures 13.6 cm in length. Portal flow is towards the liver (hepatopetal). Shear wave liver elastography median stiffness is 1.7 m/s (reference: normal median stiffness is 1.3 m/s or less). (Previously measuring 1.87 m/s). IQR/median stiffness to assess sampling precision is 0.06 (reference: good quality data set is IQR/median stiffness of 0.15 or less). This indicates a quality data set. GALLBLADDER: Gallbladder is physiologically distended. There are small intraluminal shadowing mobile gallstones. No definite polyp identified. No wall thickening, or pericholecystic fluid. Negative sonographic Wilson's sign. COMMON BILE DUCT: Normal in caliber measuring 0.2 cm in diameter. RIGHT KIDNEY: No hydronephrosis. No renal calculi or suspicious focal parenchymal lesions. The kidney measures 13.1 cm in maximum dimension. There is an upper pole simple cyst measuring 5.9 x 4.4 x 5.7 cm. LEFT KIDNEY: No hydronephrosis. No renal calculi or suspicious focal parenchymal lesions. The kidney measures 11.9 cm in maximum dimension. SPLEEN: Unremarkable. The spleen measures 10.4 cm in maximum dimension. FREE FLUID: None seen. US/US abdomen comp w elastography IMPRESSION: 1. Mild liver enlargement with diffusely increased and coarsened hepatic echogenicity. No suspicious focal lesion or biliary dilatation. 2. Liver elastography: Measurements are suggestive of compensated advanced chroniic liver disease but need further test for confirmation. Liver stiffness measurement is without significant change from prior exam (change under 10%). 3. Cholelithiasis. No definite gallbladder polyp is appreciated. 4. There is a simple cyst in the upper pole of the right kidney measuring 5.9 cm. REFERENCE: Society of Radiologists in Ultrasound Liver Stiffness Thresholds (2019): LIVER STIFFNESS THRESHOLDS: *Liver Stiffness equal or less than 1.3 m/s: High probability of being normal. *Liver Stiffness less than 1.7 m/s: In the absence of other known clinical signs, rules out compensated advanced chronic liver disease. *Liver Stiffness 1.7-2.1 m/s: Suggestive of compensated advanced chronic liver disease but need further test for confirmation. *Liver Stiffness over 2.1 m/s: Rules in compensated advanced chronic liver disease. *Liver Stiffness over 2.4 m/s: Suggestive of clinically significant portal hypertension. QUALITY OF DATA SET: *IQR/Median value equal or less than 0.15 implies a quality data set. *IQR/Median value over 0.15 implies a poor quality data set. SIGNIFICANT CHANGE FROM PRIOR EXAM: Significant change if liver stiffness measurement is 10% or greater from prior exam. OTHER CONSIDERATIONS: The stage of liver fibrosis may be overestimated in the setting of acute hepatitis, liver inflammation, elevated liver function tests, hepatic vascular congestion, obstructive cholestasis, non-fasting state, and infiltrative diseases such as amyloidosis and lymphoma. In some patients with NAFLD, the liver stiffness thresholds for compensated advanced chronic liver disease may be lower. In causes other than viral hepatitis and NAFLD, liver stiffness thresholds are not well established. Electronically signed by: Joe Robledo MD 06/13/2025 10:21 AM EDT
--- OUTSIDE RECORDS SUMMARY | 2025-06-13 09:17 | XMS_ITS | Data Portability ---
Author Organization [place] [facility] [place] Address [address] [place] [address] Assessment Encounter Date Assessment Date Assessment LastModified [...] DO Not Attach Compendium, Do Not Delete/merge, [id number] 15:52:00 XR, knee 023 04/21/20 23 [email or web address] In-Office Order, Internal Use Only DO Not Attach Compendium DO Not Attach Compendium, Do Not Delete/merge, [id number] 08:08:48 Medication Orders None record ed. Patient TargetsNo targets recorded. Patient Instructions Encounter Date Encounter Id Patient Instructions Last Modified By Organization Details Last Modified Time 04/21/2023 [id number] X-rays of both k nees demonstrate significant [...] They are going to go down to [place] for the winter, and when they return [...] DO Not Attach Compendium, Do Not Delete/merge, [id number] 04/21/2023 10:39:03 04/21/20 23 03/15/2018 MRI, knee, w/o contr ast No observ ation record ed. [email or web address] Not Available 2022 11:17:07 04/21/20 23 10/28/2022 MRI, knee, w/o contr ast No observ ation record ed. Not Available 2022 11:17:48 10/02/19 24 XR, knee No observ ation record ed. [email or web address] In-Office Order Internal Use Only DO Not Attach Compendium DO Not Attach Compendium, Do Not Delete/merge, [id number] 10/02/2023 10:21:33 Result Notes None recorded. Procedures Surgical History Date Name Laterality Status Provider Name and Address Organization Details Recorded Time 4 ([facility]) Knee Cortisone Injection completed Alfredo Jade MD [address] [place], [address], [facility] 10/02/2023 10:33:34 3 ([facility]) Knee Cortisone Injection completed Alfredo Jade MD [address] [place], [address], [facility] 04/21/2023 10:50:10 Imaging [...] Updated DateTime 10/02/2023 167.64 cm 29.4 kg/m2 05955.81 g Radha sanders [place] - [facility] 10/02/2023 09:59:31 Date Recorded Body height Body weight Provider Name and Address Organization Details Last Updated DateTime 04/21/2023 167.64 cm 82125.81 g alejo payan [place] - [facility] 04/21/2023 10:18:09 Social History Question Answer Notes LastModified by InstantQuestizat ion Details LastModified Time Tobacco Smoking Status Never Smoker alejo ribeiro [place] - [facility] 04/21/2023 10:19:10 What Was The Date Of Your Most Recent Tobacco Screening? 04/21/2023 [email or web address] Information not available 04/21/2023 Sex: Unknown Functional Status Question Answer Note LastModified by Telly Details LastModified Time Do you use any illicit or recreational drugs? No [email or web address] Information not available 04/21/2023 Do you or have you ever used any other forms of tobacco or nicotine? No Information not available 04/21/2023 What is your level of alcohol consumption? None [email or web address] Information not available 04/21/2023 Mental Status None recorded. Family History Nothing Reported. Medical History Condition Response HIV or AIDS N Coronary Artery Disease N Gout N Migraines N Thyroid Problems N Lung Disease N Depression N Blood Clots N Pacemaker N Anemia N Heart Attack ([place]) N Ulcers N Anxiety Disorder Y Diabetes [...] Diagnosis SNOMED-CT Code Diagnosis ICD10 Code Diagnosis IMO Codes Diagnosis Note [id number] MD JD Mosher Lizeth gallegos [address] [place] [address] 04/21/2023 09:58:38 04/21/2023 10:57:02 Osteoarthritis of right knee joint 7812514394 66291 M17.11 Osteoarthr itis of left knee joint 9046557571 92081 M17.12 [id number] Alfredo Jade MD JD KAL [employer] galleg[employer] [address] [place] [address] 10/02/2023 09:57:14 10/02/2023 10:45:44 Osteoarthritis of right knee joint 9405907219 61735 M17.11 Osteoarthr itis of left knee joint 9981887485 93425 M17.12 Health Concerns Section Related Observation LastModified by Organization Detai ls LastModified Time None Recorded Concern Status LastModified by Organization Details LastModified Time None Recorded Advance Directives Directive None Recorded Payers Insurance Date Sequence Insurance Name Policy Number Policy Luevano Covered Member ID Luevano Member ID Guarantor Name 09/29/2023 2 [place] [id number] Betty Samaria [id number] Betty Mera 09/29/2023 1 [place] [employer] SERVICES Betty Mera [id number] Betty Mera Notes Date Note Type Note Provider Name and Address Organization Details Recorded Time 04/21/2023 text/html NICOL Knee FollowupReported by Patient NICOL KneeReported by Patient A 72-year-old woman who is from the [facility] area, who has heard about us from other patients, who presents with bilateral history of knee arthritis. She has had x-rays and MRI scan. She has had cortisone shots, nonoperative measures with worsening pain and discomfort as of late. She is strongly considering surgical intervention. She is here today for second opinion, here today with her as well. Alfredo Jade MD [address] [place], [address], [facility] 04/22/2023 04:33:09 10/02/2023 [...] pain and function. Alfredo Jade MD [address] [facility], [place], [address], [facility] 10/02/2023 10:37:18 OBGyn Episode No OBEpisode recorded.
== END 2025-06-13 08:48 | disposition home or self-care (01) ==
LOC: HO.US 08:47
PROVIDERS: PCP Internal Medicine; Visit Provider Internal Medicine
DX: K76.0 Fatty (change of) liver, not elsewhere classified (principal); K74.00 Hepatic fibrosis, unspecified; K74.60 Unspecified cirrhosis of liver
CPT/HCPCS: 76700; 76981

== ENCOUNTER → 2025-06-13 09:09 | Outpatient (BNV) | payer MEDICARE, SELFPAY | PROVIDERS: PCP Internal Medicine; Visit Provider Radiology Diagnostic Radiology | DX: K80.20 Calculus of gallbladder without cholecystitis without obstruction (principal); N28.1 Cyst of kidney, acquired; R16.0 Hepatomegaly, not elsewhere classified | CPT/HCPCS: 76700 ==

== ENCOUNTER 2025-08-14 10:06 | Outpatient (REF) | payer MEDICARE, SELFPAY ==
[2025-08-14 12:50] LABS: Alanine Aminotransferase 57 U/L (0-31); Albumin Level 3.9 g/dL (3.5-5.0); Alkaline Phosphatase 89 U/L (39-117); Anion Gap 9 (12-20); Aspartate Amino Transferase 73 U/L (5-31); Blood Urea Nitrogen 14 mg/dL (9-16); Calcium 9.7 mg/dL (8.4-10.2); Carbon Dioxide 28 mmol/L (22-29); Chloride 108 mmol/L (96-108); Cholesterol 141 mg/dL (<200); Estimated Glomerular Filt Rate 58; HDL Cholesterol 41 mg/dL (>40); Potassium 4.3 mmol/L (3.3-5.1); Sodium 141 mmol/L (135-145); Total Protein 7.1 g/dL (6.5-8.0); Triglycerides 112 mg/dL (<150)
== END 2025-08-14 10:07 ==
LOC: HO.LAB 10:06
PROVIDERS: PCP Internal Medicine; Visit Provider Internal Medicine
DX: E78.5 Hyperlipidemia, unspecified (principal)
CPT/HCPCS: 36415; 80053; 80061

== ENCOUNTER 2025-08-26 10:52 | Outpatient (AMB) | payer MEDICARE, SELFPAY ==
[2025-08-26 10:59] VITALS: BP 116/62; PULSE 60; RESP 18; O2SAT 97; BMI 29.3
--- NOTE | 2025-08-26 10:59 | A.OFFPC_ITS ---
Vital Signs 08/26/25 10:59 Height 5 ft 6 in Weight 181 lb 8 oz BMI 29.3 BP 116/62 Blood Pressure Location Lt brachial Position Sitting Respiration 18 Pulse 60 Pulse Source Pulse Oximeter Temp Source Temporal Artery Scan Pulse Oximetry (%) 97 Oxygen Delivery Method Room Air Intake Visit Reasons: lipids Strategic Planning Manager Required: No Accompanied by: Self / Same As Patient Allergies chlorhexidine (CHLORAPREP) Allergy (Mild, Verified 08/26/25 11:09) RASH cephalexin (Keflex) Allergy (Unknown, Verified 08/26/25 11:09) GI upset Medication List - Last Reconciled 08/26/25 by Suellen Victor MD aspirin 81 mg PO DAILY atenolol 50 mg PO DAILY celecoxib (Celebrex) 200 mg PO BID cholecalciferol (vitamin D3) 50 mcg PO DAILY epinephrine (EpiPen 2-Octavio) 0.3 mg (0.3 mL) IM Q4H PRN hydrochlorothiazide 25 mg PO DAILY PRN lorazepam 1 mg PO BEDTIME PRN rosuvastatin 5 mg PO DAILY ursodiol 300 mg PO BID valsartan 80 mg PO DAILY 90 days Tobacco use date assessed: 08/26/25 Fall risk assessment: No Falls in past year Last assessed Fall Risk: 08/26/25 Dental Screening Dental Screen Date: 08/26/25 Did you have a dental visit in the last 12 months?: Yes Did you have a dental problem in the last 6 months where you did not have access to dental care?: No Was dental information given to patient?: Patient has dentist HPI HPI Comments History of Present Illness Details This is a 75-year-old female with hypertension, hyperlipidemia, panic disorder, cirrhosis and impaired glucose tolerance that comes today for follow- up on her conditions. Blood pressure stable. Cholesterol well controlled with statins. She does have transaminitis secondary to cirrhosis and this is follow by Gastroenterology. She also has thrombocytopenia but denies any active bleeding and this might be also due to cirrhosis. Panic disorder well controlled with benzodiazepines as needed. She does have impaired glucose tolerance but denies any polyuria, polydipsia or unintentional weight loss. Was advised to follow a low-carbohydrate diet. [facility] Medical History Hemochromatosis Thrombocytopenia Fatty liver Breast cancer Endometrial carcinoma Panic disorder Hyperlipidemia Hypertension Primary osteoarthritis of left knee Primary osteoarthritis of right knee Surgical History History of colonoscopy (~02/03/23) History of lumpectomy of left breast History of cataract surgery History of liver biopsy History of foot surgery History of hysterectomy Family History Father Lung cancer Smoker Mother Osteoarthritis Bone cancer Maternal Aunt Osteoarthritis Social History Housing: House Alcohol intake: current Alcohol intake frequency: a few times a month Alcohol type: wine Patient Tobacco Use Status: Never used Tobacco e-Cigarette/Vaping Use: Never Used Second Hand Smoke Exposure: No service: No Current occupational status: employed 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 Cognitive needs: No Hearing needs: No Vision needs: Yes Questionnaire Thrive Questionnaire Date Thrive assessed: 08/26/25 I am a: Patient What is your living situation today?: I have a steady place to live Within the past 12 months, did the food you bought not last and you didn't have the money to get more?: Never true Within the past 12 months, did you worry whether your food would run out before you got money to buy more?: Never true Do you have trouble paying for medicines?: No Do you have trouble getting transportation to medical appointments?: No Do you have trouble paying your heating and electricity bill?: No Do you have trouble taking care of your child, family member or friend?: No Do you have trouble with day-to-day activities such as bathing, preparing meals, shopping, managing finances, etc.?: No Are you currently unemployed and looking for a job?: No Are you interested in more education?: No Currently or been in a relationship where the following occur: No concerns reported THRIVE Score: 0 ALMA-7 AMB Questionnaire ALMA-7 Date ALMA - 7 assessed: 01/28/25 Source: Developed by Drs. Serafin Flores, Christina Sheppard, Garry Perry and colleagues, with an educational adenike from [employer]. Review of Systems Const All systems reviewed & are unremarkable except as noted in HPI and below Card Denies chest pain at rest, Denies chest pain with activity, Denies edema, Denies irregular heart rhythm, Denies claudication, Denies dyspnea, Denies dyspnea on exertion, Denies orthopnea, Denies paroxysmal nocturnal dyspnea and Denies slow heart rate Resp Denies cough, Denies dyspnea and Denies dyspnea on exertion Physical exam (Primary Care) Vital Signs: Last Vital Signs Pulse 60 08/26/25 10:59 Resp 18 08/26/25 10:59 BP 116/62 08/26/25 10:59 Pulse Ox 97 08/26/25 10:59 Oxygen Delivery Method Room Air 08/26/25 10:59 BMI result Body Mass Index 29.3 Tobacco/Smoking Status: Tobacco use Status Tobacco use date assessed 08/26/25 08/26/25 11:08 Patient Tobacco Use Status Never used Tobacco 08/26/25 11:08 e-Cigarette/Vaping Use Never Used 08/26/25 11:08 Thrive Assessment: Date of Thrive Assessment Date Thrive assessed 08/26/25 08/26/25 11:08 Currently or been in a relationship where the following occur: No concerns reported Resp Effort & Inspection: normal respiratory effort Auscultation: clear to auscultation bilaterally Cardio Jugular venous distension: no JVD Rate: regular rate Rhythm: regular rhythm Heart sounds: S1 normal heart sound present and S2 normal heart sound present Extrem General: Yes full ROM Coding Level of Care Code Add On Preventative Visit Only Diagnoses Thrombocytopenia D69.6 Hypertension I10 Hyperlipidemia E78.5 Cirrhosis of liver K74.60 Panic disorder F41.0 Impaired glucose tolerance R73.02 Time Spent (min) 23 Assessment & Plan Assessment & Plan (1) Thrombocytopenia: Code(s): D69.6 - Thrombocytopenia, unspecified Category: Medical (2) Hypertension: Code(s): I10 - Essential (primary) hypertension Category: Medical (3) Hyperlipidemia: Code(s): E78.5 - Hyperlipidemia, unspecified Category: Medical (4) Cirrhosis of liver: Code(s): K74.60 - Unspecified cirrhosis of liver Category: Medical (5) Panic disorder: Code(s): F41.0 - Panic disorder [episodic paroxysmal anxiety] Category: Medical (6) Impaired glucose tolerance: Code(s): R73.02 - Impaired glucose tolerance (oral) Category: Medical Plan Continue same medications. Repeat labs in 6 months. Orders: Orders Comprehensive [place]. Panel Fast 6 Months R73.02 - Impaired glucose tolerance (oral) Lipid Panel 6 Months E78.5 - Hyperlipidemia, unspecified Complete Blood Count Auto Diff 6 Months D69.6 - Thrombocytopenia, unspecified Medications: New scopolamine base 1 patch transdermal Q3D PRN 10 ea 2RF nausea and vomiting 2 weeks Changed From lorazepam 1 mg PO BEDTIME PRN 30 tabs 0RF anxiety To lorazepam 1 mg PO BEDTIME PRN 30 tabs 1RF anxiety 30 days
== END 2025-08-26 11:32 | disposition home or self-care (01) ==
LOC: HO.HMCH 10:53
PROVIDERS: PCP Internal Medicine; Visit Provider Internal Medicine
DX: D69.6 Thrombocytopenia, unspecified (principal); I10 Essential (primary) hypertension; E78.5 Hyperlipidemia, unspecified; K74.60 Unspecified cirrhosis of liver; F41.0 Panic disorder [episodic paroxysmal anxiety]; R73.02 Impaired glucose tolerance (oral)

== ENCOUNTER → 2025-08-26 10:52 | Outpatient (BNVA) | payer MEDICARE, SELFPAY | PROVIDERS: PCP Internal Medicine; Visit Provider Internal Medicine | DX: D69.6 Thrombocytopenia, unspecified (principal); I10 Essential (primary) hypertension; E78.5 Hyperlipidemia, unspecified; F41.0 Panic disorder [episodic paroxysmal anxiety]; K74.60 Unspecified cirrhosis of liver; R73.02 Impaired glucose tolerance (oral) | CPT/HCPCS: 99212 ==